=== PATIENT | male | born 1995 | race Caucasian/White ===

== ENCOUNTER → 2018-03-07 | Outpatient (CLI) | payer BC, OTHER ==
--- NOTE | 2018-03-07 08:07 | Diagnostic Imaging Report ---
PROCEDURE: CT sinuses without contrast TECHNIQUE: Multiple contiguous axial images were obtained through the sinuses without the use of intravenous contrast. Coronal and sagittal reformations were then performed. INDICATION: Chronic sinusitis and sinus polyp. Axial CT images of the paranasal sinuses are obtained with sagittal and coronal reformatted images produced. FINDINGS: There is near complete opacification of the left maxillary antrum with lobulated lesion appearing to protrude through the widened left ostiomeatal complex. There is also rightward deviation of the nasal septum. Leftward nasal septal spurring is present. Remainder of the paranasal sinuses are clear. There is no paranasal sinus air-fluid level. Mastoid air cells are also unremarkable. IMPRESSION: Probable mucous retention cyst or polyp occupying the majority of the left maxillary antrum with protrusion into the left nasal cavity through widened ostiomeatal complex. This also appears to exert mass effect upon the nasal septum. No acute sinusitis is appreciated. Dictated by: Dictated on workstation # [id number]
== END ==
LOC: RAD 07:34
PROVIDERS: ATTEND Otolaryngology Otolaryngology/Facial Plastic Surgery
DX: J32.9 Chronic sinusitis, unspecified (principal); J33.9 Nasal polyp, unspecified
CPT/HCPCS: 70486

== ENCOUNTER 2018-04-01 05:42 | Outpatient (CLI) | payer BC ==
[~2018-04-01] VITALS: Ht 195.6 cm; Wt 115.7 kg
== END 2018-04-01 14:13 | disposition home or self-care (01) ==
LOC: PREOP 05:42
PROVIDERS: ATTEND Otolaryngology Otolaryngology/Facial Plastic Surgery
DX: Z01.818 Encounter for other preprocedural examination (principal)

== ENCOUNTER 2018-04-04 06:21 | Day surgery (SDC) | payer BC ==
[~2018-04-04] VITALS: Ht 195.6 cm; Wt 115.7 kg
--- OUTSIDE RECORDS SUMMARY | 2018-04-04 06:24 | XMS REPORT ---
Author JOSÉ Patricia [facility] Address [address] [place], [place] [address] Care Team Providers Care Network Applications Specialist Name Role Phone JOSÉ LINDSAY PCP Unavailable Allergies and Adverse Reactions Name Reaction Notes NO KNOWN DRUG ALLERGIES Plan of Treatment Not available. 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 Acne scar Active 03/01/2014 Encounter for long-term (current) use of high-risk medication Active 2014 Vital Signs Date Time BP-Sys(mm[Hg] BP-Lynnette(mm[Hg]) HR(bpm) RR(rpm) Temp WT HT HC BMI BSA BMI Percentile O2 Sat(%) 03/01/2016 11:14:00 AM 150 mmHg 90 mmHg 85 bpm 18 rpm 98.1 F 252 lbs 77 in 29.88 kg/m2 2.49 m2 95.9 % 98 % Social History Name Description Comments Tobacco Never smoker History of Procedures Date Ordered Description Order Status 03/01/2016 12:00 AM THER/PROPH/DIAG INJ SC/IM Reviewed 03/01/2016 12:00 AM Decadron 8mg Injection Reviewed 03/01/2016 12:00 AM Depo-Medrol 80mg Injection Reviewed 03/01/2016 12:00 AM Rocephin 1 gram Injection Reviewed Results Summary Data and Description Results 02/09/2014 3:06 PM Reason No Show Appointment Date 02-09-14 04/07/2014 11:33 AM HDL 37.0 mg/dLSGOT/AST 16.0 IU/LSGPT/ALT 19.0 IU/LALK PHOS 84.0 IU/LCHOLESTEROL 144.0 mg/dLTRIGLYCERIDES 103.0 mg/dLWBC 9.2 RBC 5.38 HGB 15.80 g/dLHCT 46.50 %MCV 86.0 fLMCH 29.40 pgHC 34.0 g/dLRDW SD 41 RDW CV 12.90 %MPV 10.80 fLPLT 236 NRBC# 0.00 NRBC% 0.0 %NEUT 68.40 %%LYMP 25.70 %%MONO 5.30 %%EOS 0.40 %%BASO 0.20 %#NEUT 6.27 #LYMP 2.36 #MONO 0.49 #EOS 0.04 #BASO 0.02 MANUAL DIFF NOT IND History Of Immunizations Not available. History of Past Illness Name Date of Onset Comments Acne Cystic acne 03/01/2014 Acne scar 03/01/2014 Encounter for long-term (current) use of high-risk medication 03/01/2014 Cystic acne Mar 01 2014 3:41PM Acne scar Mar 01 2014 3:41PM Encounter for long-term (current) use of high-risk medication Mar 01 2014 3: 41PM Cystic acne Apr 07 2014 3:39PM Scar Apr 07 2014 3:39PM Encounter for long-term (current) use of high-risk medication Apr 07 2014 3: 39PM Acute pharyngitis, unspecified etiology Mar 01 2016 11:15AM Mild Acute Purulent postnasal drainage Mar 01 2016 11:15AM Moderate Acute Sinus pressure Mar 01 2016 11:15AM Payers Insurance Name Company Name Plan Name Plan Number Policy Number Policy Group Number Start Date [facility] [id number] Wednesday, 2010 History of Encounters Visit Date Visit Type Provider 03/01/2016 Office visit JOSÉ GREER 04/07/2014 Office visit Gemini Yoon MD 03/01/2014 Office visit Gemini Yoon MD 09/23/2013 Office visit Gemini Yoon MD
--- OUTSIDE RECORDS SUMMARY | 2018-04-04 06:24 | XMS REPORT ---
Author JOSÉ Patricia [facility] Address [address] [place], [place] [address] Care Team Providers Care Medical Transcriptionist Name Role Phone JOSÉ LINDSAY PCP Unavailable [...] 15.80 g/dLHCT 46.50 %MCV 86.0 fLMCH 29.40 pgMCHC 34.0 g/dLRDW SD 41 RDW CV 12.90 [...] Acute Sinus pressure Mar 01 2016 11:15AM Encounter for drug screening May 01 2016 3:03PM Payers Insurance Name Company Name Plan Name Plan Number Policy Number Policy Group Number [id number] Wednesday, [facility] PMRV PHYS/DS [id number] N/A History of Encounters Visit Date Visit Type Provider 05/01/2016 Office visit JOSÉ GREER 03/01/2016 Office visit JOSÉ GREER 04/07/2014 Office visit Gemini Yoon MD 03/01/2014 Office visit Gemini Yoon MD 09/23/2013 Office visit Gemini Yoon MD
--- OUTSIDE RECORDS SUMMARY | 2018-04-04 06:24 | XMS REPORT ---
Author Author BECKI JOYA Organization [facility] Address [address] [place] [address] Care Team Providers Care Paring Machine Operator Name Role Phone BECKI JOYA Unavailable PROBLEMS Unknown Problems ALLERGIES No Known Allergies ENCOUNTERS Encounter Location Date Diagnosis [facility] [address] [facility] [id number] [place] [address] Oct, Pneumonia of left lower lobe due to infectious organism J18.1 [facility] [id number] [place] [address] Dec Routine sports physical exam V70.3 ; Exercise counseling V65.41 and Dietary counseling V65.3 IMMUNIZATIONS Vaccine Route Administration Date Status SOLUMEDROL (UP TO 125 MG) IM Intramuscular Oct 31, 2016 Administered SOCIAL HISTORY Never Assessed REASON FOR VISIT cough, chest congestion for the past 2 months. [email or web address] PLAN OF CARE VITAL SIGNS Height 78 in 2016-10-31 Weight 258.0 lbs 2016-10-31 Temperature 98.3 degrees Fahrenheit 2016-10-31 Heart Rate 78 bpm 2016-10-31 Respiratory Rate 20 2016-10-31 BMI 29.81 kg/m2 2016-10-31 Blood pressure systolic 136 mmHg 2016-10-31 Blood pressure diastolic 86 mmHg 2016-10-31 MEDICATIONS Medication Instructions Dosage Frequency Start Date End Date Duration Status Zithromax Z-Martin 250 MG Orally Once a day 2 tablets on the first day, then 1 tablet daily for 4 days 24h Oct, Oct, 5 day(s) Active Cetirizine HCl 10 MG Orally Once a day 1 tablet 24h Active RESULTS No Results PROCEDURES Procedure Date Ordered Result Body Site SOLUMEDROL (UP TO 125 MG) Oct 31, 2016 THER/PROPH/DIAG INJ, SC/IM Oct 31, 2016 INSTRUCTIONS MEDICATIONS ADMINISTERED No Known Medications MEDICAL (GENERAL) HISTORY Type Description Date Surgical History right knee arthroscopy
--- OUTSIDE RECORDS SUMMARY | 2018-04-04 06:24 | XMS REPORT ---
Author Author KARUNA LEONARD Organization [employer] Address Unknown Phone Unavailable Care Team Providers Care [employer] Platemaker Name Role Phone KARUNA LEONARD CP Unavailable Allergies, Adverse Reactions, Alerts Substance Reaction Event Type N.K.D.A. Info Not Available Non Drug Allergy Problems Problem Type Condition Code Onset Dates Condition Status Assessment Exercise counseling V65.41 Active Assessment Dietary counseling V65.3 Active Assessment Routine sports physical exam V70.3 Active Medications No Known Medications Procedures Procedure Coding System Code Date VISUAL ACUITY SCREEN CPT-4 17970 Jan 10, 2015 Preventive Care Est Pt. Age 12-17 CPT-4 20323 Jan 10, 2015 Vital Signs Date/Time: Jan 10, 2015 Temperature 99.2 F BMIPercentile 97.53 % Weight 249.3 lbs Height 75.5 in BMI 30.75 Index Blood Pressure Diastolic 78 mmHg Blood Pressure Systolic 132 mmHg Cardiac Monitoring Heart Rate 94 bpm Wt Percentile 99.48 % Ht Percentile 98.94 % Results No Known Results Summary Purpose [employer] Submission
--- OUTSIDE RECORDS SUMMARY | 2018-04-04 06:25 | XMS REPORT | Clinical Summary ---
Author Author Admin, OBDULIO Organization [facility] Address Unknown Phone Unavailable Allergies, Adverse Reactions, Alerts Allergy Name Reaction Description Start Date Severity Status Provider No Known Allergies MANUELA [place] Conditions or Problems Problem Name Problem Code Onset Date Status Entry Date Provider Comment Standard Description Annotate ANKLE PAIN, RIGHT 719.47 Resolved Steffany Lynch MD PhD Pain in joint involving ankle and foot FAMILY HISTORY OF HYPERTENSION V17.4 Active Susan Mckinnon MD Family history of other cardiovascular diseases Sinusitis-Acute 461.9 Inactive Susan Mckinnon MD Acute sinusitis, unspecified Abdominal pain, right upper quadrant 789.01 Resolved Steffany Lynch MD PhD Abdominal pain, right upper quadrant Knee pain, right 719.46 Resolved Steffany Lynch MD PhD Pain in joint involving lower leg SINUSITIS, ACUTE 461.9 Inactive Julián Sue MD Acute sinusitis, unspecified Nasal congestion 478.19 Resolved Steffany Lynch MD PhD Other disease of nasal cavity and sinuses Pharyngitis-Acute 462 Resolved Steffany Lynch MD PhD Acute pharyngitis Concussion with no loss of consciousness 850.0 Active Steffany Lynch MD PhD Concussion with no loss of consciousness Sinusitis, maxillary, acute 461.0 Active Carter Blanco DO Acute maxillary sinusitis Bronchitis 490 Active Wilberto Escobar APRN Bronchitis, not specified as acute or chronic Pharyngitis 462 Active Wilberto Escobar APRN Acute pharyngitis ANKLE PAIN, RIGHT ICD-719.47 Inactive Steffany Lynch MD PhD Sinusitis-Acute ICD-461.9 Inactive Susan Mckinnon MD Abdominal pain, right upper quadrant ICD-789.01 Inactive Steffany Lynch MD PhD Knee pain, right ICD-719.46 Inactive Steffany Lynch MD PhD SINUSITIS, ACUTE ICD-461.9 Inactive Julián Sue MD Nasal congestion ICD-478.19 Inactive Steffany Lnych MD PhD Pharyngitis-Acute ICD-462 Inactive Steffany Lynch MD PhD Medication List Medication Instructions Start Date Stop Date Generic Name NDC Status Provider Patient Instruction FLUTICASONE PROPIONATE 50 MCG/ACT SUSP 1 to 2 sprays each nostril daily 03/21 FLUTICASONE PROPIONATE 86518768161 Active Richllina Shawn CARRENON Active AUGMENTIN 875-125 MG TAB 1 po BID x 10 days AMOXICILLIN-POT CLAVULANATE 19701399698 No Longer Active Richllina Lizetl SEO EXECUTIVE Active CLARITIN 10 MG TAB 1 tablet by mouth daily as needed for allergies LORATADINE 23189993960 Active Jillina Frazell SEO EXECUTIVE Active PREDNISONE 20 MG TAB 2 tabs daily for 3 days, 1 tab daily for 3 days, 1/2 tab daily for 2 days PREDNISONE 07576384893 No Longer Active Jillina Frazell SEO EXECUTIVE Active AZITHROMYCIN 250 MG TABS 2 po qd x 1 day, then 1 po qd x 4 days AZITHROMYCIN 74521885257 No Longer Active Jillina Frabeatrizl SEO EXECUTIVE Active FLONASE 50 MCG/ACT SUSP 1 spray each nostril twice daily for allergies and runny nose FLUTICASONE PROPIONATE 84760804731 No Longer Active Jillina Frazell SEO EXECUTIVE Active CEFTIN 500 MG TAB 1 twice a day CEFUROXIME AXETIL 02335402874 No Longer Active Jillina Frazell SEO EXECUTIVE Active PREDNISONE 20 MG TAB 2 tablets today, then 1 tablet days 2 and 3 PREDNISONE 48326708400 No Longer Active Jillina Frazell SEO EXECUTIVE Active TYLENOL WITH CODEINE #3 300-30 MG TABS 1 pill by mouth up to every 6 hours if needed for pain ACETAMINOPHEN-CODEINE 11298096884 No Longer Active Carter Blanco DO Active FLONASE 50 MCG/ACT SUSP 1 spray each nostril am and hs FLUTICASONE PROPIONATE 40708344492 No Longer Active Carter Blanco DO Active PREDNISONE 20 MG TAB 2 tablets today, then 1 tablet days 2 and 3 PREDNISONE 58936931480 No Longer Active Steffany Lynch MD PhD Active ZITHROMAX 250 MG TAB 2 po today, then 1 po q days 2-5 AZITHROMYCIN 25219470727 No Longer Active Julián Sue MD Active FLONASE 50 MCG/ACT SUSP 1 puff in each nostril twice daily 12/30 FLUTICASONE PROPIONATE 33946128250 No Longer Active Elle Giang APRN Active AMOXICILLIN 875 MG TABS 1 bid AMOXICILLIN 85348170863 No Longer Active Elle Giang APRN Active AMOXICILLIN 875 MG TABS 1 bid AMOXICILLIN 875 MG TABS 249971 AMOXICILLIN Inactive FLONASE 50 MCG/ACT SUSP 1 puff in each nostril twice daily 12/30 FLONASE 50 MCG/ACT SUSP FLUTICASONE PROPIONATE Inactive PREDNISONE 20 MG TAB 2 tablets today, then 1 tablet days 2 and 3 PREDNISONE 20 MG TAB 975514 PREDNISONE Inactive FLONASE 50 MCG/ACT SUSP 1 spray each nostril am and hs FLONASE 50 MCG/ACT SUSP FLUTICASONE PROPIONATE Inactive TYLENOL WITH CODEINE #3 300-30 MG TABS 1 pill by mouth up to every 6 hours if needed for pain TYLENOL WITH CODEINE #3 300-30 MG TABS 267321 ACETAMINOPHEN-CODEINE Inactive PREDNISONE 20 MG TAB 2 tablets today, then 1 tablet days 2 and 3 PREDNISONE 20 MG TAB 817014 PREDNISONE Inactive CEFTIN 500 MG TAB 1 twice a day CEFTIN 500 MG TAB 390678 CEFUROXIME AXETIL Inactive FLONASE 50 MCG/ACT SUSP 1 spray each nostril twice daily for allergies and runny nose FLONASE 50 MCG/ACT SUSP FLUTICASONE PROPIONATE Inactive ZITHROMAX 250 MG TAB 2 po today, then 1 po q days 2-5 ZITHROMAX 250 MG TAB 1238065 AZITHROMYCIN Inactive AZITHROMYCIN 250 MG TABS 2 po qd x 1 day, then 1 po qd x 4 days AZITHROMYCIN 250 MG TABS 5938632 AZITHROMYCIN Inactive PREDNISONE 20 MG TAB 2 tabs daily for 3 days, 1 tab daily for 3 days, 1/2 tab daily for 2 days PREDNISONE 20 MG TAB 361250 PREDNISONE Inactive AUGMENTIN 875-125 MG TAB 1 po BID x 10 days AUGMENTIN 875-125 MG TAB 652391 AMOXICILLIN-POT CLAVULANATE Inactive Immunizations Vaccine Administration Date Value Standard Description Adacel (Tetanus, reduced Diphtheria, and acellular Pertussis Immunization) Adacel [[id number]] tetanus toxoid, reduced diphtheria toxoid, and acellular pertussis vaccine, adsorbed chicken pox immunization #1 Historical varicella virus vaccine hepatitis A immunization #1 Historical hepatitis A vaccine, unspecified formulation DPT immunization #5 Historical oral polio vaccine (OPV) #4 Historical poliovirus vaccine, unspecified formulation MMR (measles, mumps, rubella) virus immunization #2 Historical DPT immunization #4 Historical Hemophilus influenza B immunization #4 Historical Haemophilus influenzae type b vaccine, conjugate unspecified formulation oral polio vaccine (OPV) #3 Historical poliovirus vaccine, unspecified formulation MMR (measles, mumps, rubella) virus immunization #1 Historical Hemophilus influenza B immunization #3 Historical Haemophilus influenzae type b vaccine, conjugate unspecified formulation DPT immunization #3 Historical hepatitis B vaccine #3 Historical hepatitis B vaccine, unspecified formulation Hemophilus influenza B immunization #2 Historical Haemophilus influenzae type b vaccine, conjugate unspecified formulation oral polio vaccine (OPV) #2 Historical poliovirus vaccine, unspecified formulation DPT immunization #2 Historical Hemophilus influenza B immunization #1 Historical Haemophilus influenzae type b vaccine, conjugate unspecified formulation oral polio vaccine (OPV) #1 Historical poliovirus vaccine, unspecified formulation DPT immunization #1 Historical hepatitis B vaccine #2 given Historical hepatitis B vaccine, unspecified formulation hepatitis B vaccine #1 given Historical hepatitis B vaccine, unspecified formulation Vital Signs Date Name Value Unit Range Description blood pressure, diastolic - 8462-4 90 mm[Hg] BP mata blood pressure, systolic - 8480-6 155 mm[Hg] BP sys pulse rate E&M - 8867-4 86 /min Heart rate temperature E&M 97.6 [degF] Body temperature weight E&M - 3141-9 245.5 [lb_av] Weight Measured blood pressure, diastolic - 8462-4 93 mm[Hg] BP mata blood pressure, systolic - 8480-6 148 mm[Hg] BP sys pulse rate E&M - 8867-4 85 /min Heart rate temperature E&M 98.2 [degF] Body temperature weight E&M - 3141-9 246.5 [lb_av] Weight Measured blood pressure, diastolic - 8462-4 78 mm[Hg] BP mata blood pressure, systolic - 8480-6 154 mm[Hg] BP sys pulse rate E&M - 8867-4 78 /min Heart rate temperature E&M 98.2 [degF] Body temperature weight E&M - 3141-9 254.2 [lb_av] Weight Measured blood pressure, diastolic - 8462-4 70 mm[Hg] BP mata blood pressure, systolic - 8480-6 125 mm[Hg] BP sys pulse rate E&M - 8867-4 76 /min Heart rate temperature E&M 98.6 [degF] Body temperature weight E&M - 3141-9 238.4 [lb_av] Weight Measured blood pressure, diastolic - 8462-4 81 mm[Hg] BP mata blood pressure, systolic - 8480-6 142 mm[Hg] BP sys pulse rate E&M - 8867-4 78 /min Heart rate temperature E&M 97.8 [degF] Body temperature weight E&M - 3141-9 235 [lb_av] Weight Measured blood pressure, diastolic - 8462-4 80 mm[Hg] BP mata blood pressure, systolic - 8480-6 141 mm[Hg] BP sys pulse rate E&M - 8867-4 74 /min Heart rate temperature E&M 98.1 [degF] Body temperature weight E&M - 3141-9 232.2 [lb_av] Weight Measured blood pressure, diastolic - 8462-4 73 mm[Hg] BP mata blood pressure, systolic - 8480-6 140 mm[Hg] BP sys pulse rate E&M - 8867-4 73 /min Heart rate temperature E&M 97.8 [degF] Body temperature weight E&M - 3141-9 235.3 [lb_av] Weight Measured Diagnostic Results Date Name Value Unit Range Description Lab Report: MonoSpot, CBC W/DIFF - Hematology leukocyte count, blood 9.2 10^3/MM^3 10*3/mm3 4.6-10.2 neutrophils as percent of blood leukocytes 68.0 % 42.2-75.2 monocytes as percent of blood leukocytes 8.0 % 1.7-9.3 lymphocytes as percent of blood leukocytes 18.2 % 20.5-51.1 erythrocyte (RBC) count 5.37 10^6/MM^3 10*6/mm3 4.69-6.13 hemoglobin, blood 16.3 g/dL 12.0-16.0 hematocrit, blood 47.7 % 41.0-53.0 mean corpuscular volume, RBC 89 fL 80-97 mean corpuscular hemoglobin, RBC 30.4 pg 27.0-31.2 mean corpuscular hemoglobin concentration, RBC 34.2 G/DL % 31.8- 35.4 red blood cell distribution width 13.8 % 11.6-14.8 platelet count 207 10^3/MM^3 10*3/mm3 142-424 Lab Report: Rapid Strep - Lab Microbial identification kit, rapid strep method Negative Negative Encounters Code Encounter Date Provider Facility CPT-91643 Level 3 Est. Patient 13:56:53 METALLURGICAL ENGINEERING TEACHER Wilberto Escobar [facility] CPT-90989 Level 3 Est. Patient 09:50:19 METALLURGICAL ENGINEERING TEACHER Wilberto Escobar [facility] CPT-83514 Level 3 Est. Patient 18:01:13 CDT Carter Blanco DO [facility] CPT-86920 Level 2 Est. Patient 15:48:46 CDT Steffany Lynch MD [facility] CPT-73447 Level 2 Est. Patient 13:26:32 CDT Steffany Lynch MD [facility] CPT-01604 Level 3 Est. Patient 10:13:02 CDT Steffany Lynch MD [facility] CPT-84839 Level 2 New Patient 14:45:33 CDT Steffany Lynch MD [facility] CPT-06232 Level 3 Est. Patient 16:57:05 METALLURGICAL ENGINEERING TEACHER Carter Blanco [facility] CPT-24377 Level 3 Est. Patient 09:58:27 CDT Julián Sue MD [facility] CPT-17596 Level 3 Est. Patient 10:17:17 METALLURGICAL ENGINEERING TEACHER Carter Blanco [facility] CPT-96690 Level 3 Est. Patient 10:42:29 METALLURGICAL ENGINEERING TEACHER Elle Giang APRN [facility] CPT-67957 Level 3 Est. Patient 10:00:26 CDT Susan Mckinnon MD [facility] CPT-35847 Level 3 Est. Patient 15:14:48 CDT Susan Mckinnon MD [facility] Procedures Code Procedure Name Date Entry Date Standard Description CPT-A4570 Splint 15:14:48 CDT CPT-59169 Ankle Complete - Min 3V 14:40:31 CDT
--- OUTSIDE RECORDS SUMMARY | 2018-04-04 06:25 | XMS REPORT | Clinical Summary ---
Author Author Admin, OBDULIO Organization [facility] Address Unknown Phone Unavailable Allergies, Adverse Reactions, Alerts Allergy Name Reaction Description Start Date Severity Status Provider No Known Allergies Grisel Blanc RN Conditions or Problems Problem Name Problem Code [...] as acute or chronic Pharyngitis 462 Active Jijose manuel Escobar APRN Acute pharyngitis ANKLE PAIN, RIGHT ICD-719.47 Inactive Steffany Lynch MD PhD Sinusitis-Acute ICD-461.9 Inactive Susan Mckinnon MD Abdominal pain, right upper quadrant ICD-789.01 Inactive Steffany Lynch MD PhD Knee pain, right ICD-719.46 Inactive Steffany Lynch MD PhD SINUSITIS, ACUTE ICD-461.9 Inactive Julián Sue MD Nasal congestion ICD-478.19 Inactive Steffany Lynch MD PhD Pharyngitis-Acute ICD-462 Inactive Steffany Lynch MD PhD Medication List Medication Instructions Start Date Stop Date Generic Name NDC Status Provider Patient Instruction FLUTICASONE PROPIONATE 50 MCG/ACT SUSP 1 to 2 sprays each nostril daily 03/21 FLUTICASONE PROPIONATE 16356233857 Active Richllina Shawn CARRENON Active AUGMENTIN 875-125 MG TAB 1 po BID x 10 days AMOXICILLIN-POT CLAVULANATE 54001162531 Active Jillina Lizetl LEGAL BILLING ANALYST Active CLARITIN 10 MG TAB 1 tablet by mouth daily as needed for allergies LORATADINE 70760476995 Active Jillina Onelzell LEGAL BILLING ANALYST Active PREDNISONE 20 MG TAB 2 tabs daily for 3 days, 1 tab daily for 3 days, 1/2 tab daily for 2 days PREDNISONE 19492411292 No Longer Active Jillina Frazell LEGAL BILLING ANALYST Active AZITHROMYCIN 250 MG TABS 2 po qd x 1 day, then 1 po qd x 4 days AZITHROMYCIN 48534786704 No Longer Active Jillina Frazell LEGAL BILLING ANALYST Active FLONASE 50 MCG/ACT SUSP 1 spray each nostril twice daily for allergies and runny nose FLUTICASONE PROPIONATE 49464346236 No Longer Active Jillina Frazell LEGAL BILLING ANALYST Active CEFTIN 500 MG TAB 1 twice a day CEFUROXIME AXETIL 12662014563 No Longer Active Jillina Frazell LEGAL BILLING ANALYST Active PREDNISONE 20 MG TAB 2 tablets today, then 1 tablet days 2 and 3 PREDNISONE 69449556600 No Longer Active Jillina Frazell LEGAL BILLING ANALYST Active TYLENOL WITH CODEINE #3 300-30 MG TABS 1 pill by mouth up to every 6 hours if needed for pain ACETAMINOPHEN-CODEINE 94023817749 No Longer Active Carter Blanco DO Active FLONASE 50 MCG/ACT SUSP 1 spray each nostril am and hs FLUTICASONE PROPIONATE 55347566820 No Longer Active Carter Blanco DO Active PREDNISONE 20 MG TAB 2 tablets today, then 1 tablet days 2 and 3 PREDNISONE 31977684170 No Longer Active Steffany Lynch MD PhD Active ZITHROMAX 250 MG TAB 2 po today, then 1 po q days 2-5 AZITHROMYCIN 54038494110 No Longer Active Julián Sue MD Active FLONASE 50 MCG/ACT SUSP 1 puff in each nostril twice daily 12/30 FLUTICASONE PROPIONATE 32197415719 No Longer Active Elle Giang APRN Active AMOXICILLIN 875 MG TABS 1 bid AMOXICILLIN 37926051501 No Longer Active Elle Giang APRN Active AMOXICILLIN 875 MG TABS 1 bid AMOXICILLIN 875 MG TABS 200732 AMOXICILLIN Inactive FLONASE 50 MCG/ACT SUSP 1 puff in each nostril twice daily 12/30 FLONASE 50 MCG/ACT SUSP FLUTICASONE PROPIONATE Inactive PREDNISONE 20 MG TAB 2 tablets today, then 1 tablet days 2 and 3 PREDNISONE 20 MG TAB 023218 PREDNISONE Inactive FLONASE 50 MCG/ACT SUSP 1 spray each nostril am and hs FLONASE 50 MCG/ACT SUSP FLUTICASONE PROPIONATE Inactive TYLENOL WITH CODEINE #3 300-30 MG TABS 1 pill by mouth up to every 6 hours if needed for pain TYLENOL WITH CODEINE #3 300-30 MG TABS 211031 ACETAMINOPHEN-CODEINE Inactive PREDNISONE 20 MG TAB 2 tablets today, then 1 tablet days 2 and 3 PREDNISONE 20 MG TAB 441026 PREDNISONE Inactive CEFTIN 500 MG TAB 1 twice a day CEFTIN 500 MG TAB 537472 CEFUROXIME AXETIL Inactive FLONASE 50 MCG/ACT SUSP 1 spray each nostril twice daily for allergies and runny nose FLONASE 50 MCG/ACT SUSP FLUTICASONE PROPIONATE Inactive ZITHROMAX 250 MG TAB 2 po today, then 1 po q days 2-5 ZITHROMAX 250 MG TAB 7469899 AZITHROMYCIN Inactive AZITHROMYCIN 250 MG TABS 2 po qd x 1 day, then 1 po qd x 4 days AZITHROMYCIN 250 MG TABS 3793820 AZITHROMYCIN Inactive PREDNISONE 20 MG TAB 2 tabs daily for 3 days, 1 tab daily for 3 days, 1/2 tab daily for 2 days PREDNISONE 20 MG TAB 003042 PREDNISONE Inactive Immunizations Vaccine Administration Date Value Standard Description Adacel (Tetanus, reduced Diphtheria, and acellular Pertussis Immunization) Adacel [[id number]] tetanus toxoid, reduced diphtheria toxoid, and acellular [...] (measles, mumps, rubella) virus immunization #1 Historical hepatitis B vaccine #3 Historical hepatitis B vaccine, unspecified formulation DPT immunization #3 Historical Hemophilus influenza B immunization #3 Historical Haemophilus influenzae type b vaccine, conjugate unspecified formulation DPT immunization #2 Historical Hemophilus influenza B immunization #2 Historical Haemophilus influenzae type b vaccine, conjugate unspecified formulation oral polio vaccine (OPV) #2 Historical poliovirus vaccine, unspecified formulation hepatitis B vaccine #2 given Historical hepatitis B vaccine, unspecified formulation DPT immunization #1 Historical Hemophilus influenza B immunization #1 Historical Haemophilus influenzae type b vaccine, conjugate unspecified formulation oral polio vaccine (OPV) #1 Historical poliovirus vaccine, unspecified formulation hepatitis B vaccine #1 given Historical hepatitis B vaccine, unspecified formulation Vital Signs Date Name Value Unit Range Description blood pressure, diastolic - 8462-4 93 mm[Hg] [...] Negative Encounters Code Encounter Date Provider Facility [facility]-[id number] Level 3 Est. Patient 13:56:53 CONVERTING OPERATOR Wilberto Escobar [facility]-50164 Level 3 Est. Patient 09:50:19 CONVERTING OPERATOR Wilberto Escobar [facility]08609 Level 3 Est. Patient 18:01:13 CDT Carter Blanco [facility][note 2]-84802 Level 2 Est. Patient 15:48:46 CDT Steffany Lynch MD [facility]-58192 Level 2 Est. Patient 13:26:32 CDT Steffany Lynch MD [facility] CPT-20795 Level 3 Est. Patient 10:13:02 CDT Steffany Lynch MD PhD [facility]-44734 Level 2 New Patient 14:45:33 CDT Steffany Lynch MD [facility] CPT-74253 Level 3 Est. Patient 16:57:05 CONVERTING OPERATOR Carter Blanco [facility] [place][note 2]-56683 Level 3 Est. Patient 09:58:27 CDT Julián Sue MD [facility] CPT-27270 Level 3 Est. Patient 10:17:17 CONVERTING OPERATOR Carter Blanco DO [facility] CPT-67769 Level 3 Est. Patient 10:42:29 CONVERTING OPERATOR Elle Giang APRN [facility] CPT-89883 Level 3 Est. Patient 10:00:26 CDT Susan Mckinnon MD [facility] CPT-30314 Level 3 Est. Patient 15:14:48 CDT Susan Mckinnon MD [facility] Procedures Code Procedure Name Date Entry Date Standard Description CPT-A4570 Splint 15:14:48 CDT CPT-08488 Ankle Complete - Min 3V 14:40:31 CDT
--- OUTSIDE RECORDS SUMMARY | 2018-04-04 06:25 | XMS REPORT | Clinical Summary ---
Author Author Admin, OBDULIO Organization [facility] Address Unknown Phone Unavailable Allergies, Adverse Reactions, [...] sprays each nostril daily 03/21 FLUTICASONE PROPIONATE 83016005589 Active Richllina Shawn CARRENON Active AUGMENTIN 875-125 MG TAB 1 po BID x 10 days AMOXICILLIN-POT CLAVULANATE 29930682626 No Longer Active Richllina Lizetl DIRECTOR OF EVENT SALES Active CLARITIN 10 MG TAB 1 tablet by mouth daily as needed for allergies LORATADINE 48551543973 Active Jillina Frazell DIRECTOR OF EVENT SALES Active PREDNISONE 20 MG TAB 2 tabs daily for 3 days, 1 tab daily for 3 days, 1/2 tab daily for 2 days PREDNISONE 49832185635 No Longer Active Jillina Frazell DIRECTOR OF EVENT SALES Active AZITHROMYCIN 250 MG TABS 2 po qd x 1 day, then 1 po qd x 4 days AZITHROMYCIN 11224190643 No Longer Active Jillina Frabeatrizl DIRECTOR OF EVENT SALES Active FLONASE 50 MCG/ACT SUSP 1 spray each nostril twice daily for allergies and runny nose FLUTICASONE PROPIONATE 71234315699 No Longer Active Jillina Frazell DIRECTOR OF EVENT SALES Active CEFTIN 500 MG TAB 1 twice a day CEFUROXIME AXETIL 48724067006 No Longer Active Jillina Frazell DIRECTOR OF EVENT SALES Active PREDNISONE 20 MG TAB 2 tablets today, then 1 tablet days 2 and 3 PREDNISONE 14835526051 No Longer Active Jillina Frazell DIRECTOR OF EVENT SALES Active TYLENOL WITH CODEINE #3 300-30 MG TABS 1 pill by mouth up to every 6 hours if needed for pain ACETAMINOPHEN-CODEINE 47584106549 No Longer Active Carter Blanco DO Active FLONASE 50 MCG/ACT SUSP 1 spray each nostril am and hs FLUTICASONE PROPIONATE 55736269795 No Longer Active Carter Blanco DO Active PREDNISONE 20 MG TAB 2 tablets today, then 1 tablet days 2 and 3 PREDNISONE 87878998093 No Longer Active Steffany Lynch MD PhD Active ZITHROMAX 250 MG TAB 2 po today, then 1 po q days 2-5 AZITHROMYCIN 79358778489 No Longer Active Julián Sue MD Active FLONASE 50 MCG/ACT SUSP 1 puff in each nostril twice daily 12/30 FLUTICASONE PROPIONATE 51557886760 No Longer Active Elle Giang APRN Active AMOXICILLIN 875 MG TABS 1 bid AMOXICILLIN 92677764404 No Longer Active Elle Giang APRN Active AMOXICILLIN 875 MG TABS 1 bid AMOXICILLIN 875 MG TABS 771985 AMOXICILLIN Inactive FLONASE 50 MCG/ACT SUSP 1 puff in each nostril twice daily 12/30 FLONASE 50 MCG/ACT SUSP FLUTICASONE PROPIONATE Inactive PREDNISONE 20 MG TAB 2 tablets today, then 1 tablet days 2 and 3 PREDNISONE 20 MG TAB 390451 PREDNISONE Inactive FLONASE 50 MCG/ACT SUSP 1 spray each nostril am and hs FLONASE 50 MCG/ACT SUSP FLUTICASONE PROPIONATE Inactive TYLENOL WITH CODEINE #3 300-30 MG TABS 1 pill by mouth up to every 6 hours if needed for pain TYLENOL WITH CODEINE #3 300-30 MG TABS 937750 ACETAMINOPHEN-CODEINE Inactive PREDNISONE 20 MG TAB 2 tablets today, then 1 tablet days 2 and 3 PREDNISONE 20 MG TAB 640102 PREDNISONE Inactive CEFTIN 500 MG TAB 1 twice a day CEFTIN 500 MG TAB 778324 CEFUROXIME AXETIL Inactive FLONASE 50 MCG/ACT SUSP 1 spray each nostril twice daily for allergies and runny nose FLONASE 50 MCG/ACT SUSP FLUTICASONE PROPIONATE Inactive ZITHROMAX 250 MG TAB 2 po today, then 1 po q days 2-5 ZITHROMAX 250 MG TAB 8252301 AZITHROMYCIN Inactive AZITHROMYCIN 250 MG TABS 2 po qd x 1 day, then 1 po qd x 4 days AZITHROMYCIN 250 MG TABS 8482214 AZITHROMYCIN Inactive PREDNISONE 20 MG TAB 2 tabs daily for 3 days, 1 tab daily for 3 days, 1/2 tab daily for 2 days PREDNISONE 20 MG TAB 163630 PREDNISONE Inactive AUGMENTIN 875-125 MG TAB 1 po BID x 10 days AUGMENTIN 875-125 MG TAB 949206 AMOXICILLIN-POT CLAVULANATE Inactive Immunizations Vaccine Administration Date Value Standard Description Adacel (Tetanus, reduced Diphtheria, and acellular Pertussis Immunization) Adacel [[id number]] tetanus toxoid, reduced diphtheria toxoid, and acellular [...] Negative Encounters Code Encounter Date Provider Facility CPT-56065 Level 3 Est. Patient 13:56:53 MECHANICAL ENGINEERING LECTURER Wilberto Escobar [facility] CPT-39549 Level 3 Est. Patient 09:50:19 MECHANICAL ENGINEERING LECTURER Wilberto Escobar [facility] CPT-65685 Level 3 Est. Patient 18:01:13 CDT Carter Blanco DO [facility] CPT-13243 Level 2 Est. Patient 15:48:46 CDT Steffany Lynch MD [facility] CPT-23115 Level 2 Est. Patient 13:26:32 CDT Steffany Lynch MD [facility] CPT-69220 Level 3 Est. Patient 10:13:02 CDT Steffany Lynch MD [facility] CPT-54543 Level 2 New Patient 14:45:33 CDT Steffany Lynch MD [facility] CPT-54364 Level 3 Est. Patient 16:57:05 MECHANICAL ENGINEERING LECTURER Carter Blanco [facility] CPT-03062 Level 3 Est. Patient 09:58:27 CDT Julián Sue MD [facility] CPT-68053 Level 3 Est. Patient 10:17:17 MECHANICAL ENGINEERING LECTURER Carter Blanco [facility] CPT-73814 Level 3 Est. Patient 10:42:29 MECHANICAL ENGINEERING LECTURER Elle Giang APRN [facility] CPT-04453 Level 3 Est. Patient 10:00:26 CDT Susan Mckinnon MD [facility] CPT-84785 Level 3 Est. Patient 15:14:48 CDT Susan Mckinnon MD [facility] Procedures Code Procedure Name Date Entry Date Standard Description CPT-A4570 Splint 15:14:48 CDT CPT-66438 Ankle Complete - Min 3V 14:40:31 CDT
--- OUTSIDE RECORDS SUMMARY | 2018-04-04 06:26 | XMS REPORT | Clinical Summary ---
Author Author Admin, OBDULIO Organization [facility] Address Unknown Phone Unavailable Allergies, Adverse [...] sprays each nostril daily 03/21 FLUTICASONE PROPIONATE 63103243429 Active Richllina Shawn CARRENON Active AUGMENTIN 875-125 MG TAB 1 po BID x 10 days AMOXICILLIN-POT CLAVULANATE 76701215680 No Longer Active Richllina Lizetl BUSINESS OBJECTS ARCHITECT Active CLARITIN 10 MG TAB 1 tablet by mouth daily as needed for allergies LORATADINE 53627915027 Active Jillina Frazell BUSINESS OBJECTS ARCHITECT Active PREDNISONE 20 MG TAB 2 tabs daily for 3 days, 1 tab daily for 3 days, 1/2 tab daily for 2 days PREDNISONE 07397606995 No Longer Active Jillina Frazell BUSINESS OBJECTS ARCHITECT Active AZITHROMYCIN 250 MG TABS 2 po qd x 1 day, then 1 po qd x 4 days AZITHROMYCIN 50945331941 No Longer Active Jillina Frabeatrizl BUSINESS OBJECTS ARCHITECT Active FLONASE 50 MCG/ACT SUSP 1 spray each nostril twice daily for allergies and runny nose FLUTICASONE PROPIONATE 93581800609 No Longer Active Jillina Frazell BUSINESS OBJECTS ARCHITECT Active CEFTIN 500 MG TAB 1 twice a day CEFUROXIME AXETIL 23281270146 No Longer Active Jillina Frazell BUSINESS OBJECTS ARCHITECT Active PREDNISONE 20 MG TAB 2 tablets today, then 1 tablet days 2 and 3 PREDNISONE 48741723884 No Longer Active Jillina Frazell BUSINESS OBJECTS ARCHITECT Active TYLENOL WITH CODEINE #3 300-30 MG TABS 1 pill by mouth up to every 6 hours if needed for pain ACETAMINOPHEN-CODEINE 79580210601 No Longer Active Carter Blanco DO Active FLONASE 50 MCG/ACT SUSP 1 spray each nostril am and hs FLUTICASONE PROPIONATE 90785626596 No Longer Active Carter Blanco DO Active PREDNISONE 20 MG TAB 2 tablets today, then 1 tablet days 2 and 3 PREDNISONE 14339506771 No Longer Active Steffany Lynch MD PhD Active ZITHROMAX 250 MG TAB 2 po today, then 1 po q days 2-5 AZITHROMYCIN 51553084419 No Longer Active Julián Sue MD Active FLONASE 50 MCG/ACT SUSP 1 puff in each nostril twice daily 12/30 FLUTICASONE PROPIONATE 75218291745 No Longer Active Elle Giang APRN Active AMOXICILLIN 875 MG TABS 1 bid AMOXICILLIN 93561786054 No Longer Active Elle Giang APRN Active AMOXICILLIN 875 MG TABS 1 bid AMOXICILLIN 875 MG TABS 699719 AMOXICILLIN Inactive FLONASE 50 MCG/ACT SUSP 1 puff in each nostril twice daily 12/30 FLONASE 50 MCG/ACT SUSP FLUTICASONE PROPIONATE Inactive PREDNISONE 20 MG TAB 2 tablets today, then 1 tablet days 2 and 3 PREDNISONE 20 MG TAB 577941 PREDNISONE Inactive FLONASE 50 MCG/ACT SUSP 1 spray each nostril am and hs FLONASE 50 MCG/ACT SUSP FLUTICASONE PROPIONATE Inactive TYLENOL WITH CODEINE #3 300-30 MG TABS 1 pill by mouth up to every 6 hours if needed for pain TYLENOL WITH CODEINE #3 300-30 MG TABS 003551 ACETAMINOPHEN-CODEINE Inactive PREDNISONE 20 MG TAB 2 tablets today, then 1 tablet days 2 and 3 PREDNISONE 20 MG TAB 167965 PREDNISONE Inactive CEFTIN 500 MG TAB 1 twice a day CEFTIN 500 MG TAB 848089 CEFUROXIME AXETIL Inactive FLONASE 50 MCG/ACT SUSP 1 spray each nostril twice daily for allergies and runny nose FLONASE 50 MCG/ACT SUSP FLUTICASONE PROPIONATE Inactive ZITHROMAX 250 MG TAB 2 po today, then 1 po q days 2-5 ZITHROMAX 250 MG TAB 6564996 AZITHROMYCIN Inactive AZITHROMYCIN 250 MG TABS 2 po qd x 1 day, then 1 po qd x 4 days AZITHROMYCIN 250 MG TABS 7652188 AZITHROMYCIN Inactive PREDNISONE 20 MG TAB 2 tabs daily for 3 days, 1 tab daily for 3 days, 1/2 tab daily for 2 days PREDNISONE 20 MG TAB 050571 PREDNISONE Inactive AUGMENTIN 875-125 MG TAB 1 po BID x 10 days AUGMENTIN 875-125 MG TAB 607666 AMOXICILLIN-POT CLAVULANATE Inactive Immunizations Vaccine Administration Date Value Standard Description Adacel (Tetanus, reduced Diphtheria, and acellular Pertussis Immunization) Adacel [[id number]] tetanus toxoid, reduced diphtheria toxoid, and acellular [...] Negative Encounters Code Encounter Date Provider Facility CPT-41856 Level 3 Est. Patient 13:56:53 SOLAR ENERGY SYSTEM INSTALLER Wilberto Escobar [facility] CPT-90914 Level 3 Est. Patient 09:50:19 SOLAR ENERGY SYSTEM INSTALLER Wilberto Escobar [facility] CPT-89175 Level 3 Est. Patient 18:01:13 CDT Carter Blanco DO [facility] CPT-68638 Level 2 Est. Patient 15:48:46 CDT Steffany Lynch MD [facility] CPT-30905 Level 2 Est. Patient 13:26:32 CDT Steffany Lynch MD [facility] CPT-21744 Level 3 Est. Patient 10:13:02 CDT Steffany Lynch MD [facility] CPT-62352 Level 2 New Patient 14:45:33 CDT Steffany Lynch MD [facility] CPT-01928 Level 3 Est. Patient 16:57:05 SOLAR ENERGY SYSTEM INSTALLER Carter Blanco [facility] CPT-62997 Level 3 Est. Patient 09:58:27 CDT Julián Sue MD [facility] CPT-28245 Level 3 Est. Patient 10:17:17 SOLAR ENERGY SYSTEM INSTALLER Carter Blanco [facility] CPT-61782 Level 3 Est. Patient 10:42:29 SOLAR ENERGY SYSTEM INSTALLER Elle Giang APRN [facility] CPT-86800 Level 3 Est. Patient 10:00:26 CDT Susan Mckinnon MD [facility] CPT-46410 Level 3 Est. Patient 15:14:48 CDT Susan Mckinnon MD [facility] Procedures Code Procedure Name Date Entry Date Standard Description CPT-A4570 Splint 15:14:48 CDT CPT-11776 Ankle Complete - Min 3V 14:40:31 CDT
--- OUTSIDE RECORDS SUMMARY | 2018-04-04 06:26 | XMS REPORT | Clinical Summary ---
Author Author Admin, OBDULIO Organization [facility] Address Unknown Phone Unavailable Allergies, Adverse Reactions, Alerts Allergy Name Reaction Description Start Date Severity Status Provider No Known Allergies Linda Elder Conditions or Problems Problem Name Problem Code [...] PhD Concussion with no loss of consciousness ANKLE PAIN, RIGHT ICD-719.47 Inactive Steffany Lynch [...] Generic Name NDC Status Provider Patient Instruction TYLENOL WITH CODEINE #3 300-30 MG TABS 1 pill by mouth up to every 6 hours if needed for pain ACETAMINOPHEN-CODEINE 54648957368 Active Steffany Lynch MD PhD Active PREDNISONE 20 MG TAB 2 tablets today, then 1 tablet days 2 and 3 PREDNISONE 05104064270 No Longer Active Steffany Lynch MD PhD Active FLONASE 50 MCG/ACT SUSP 1 spray each nostril am and hs FLUTICASONE PROPIONATE 90404449172 Active Carter Blanco DO Active ZITHROMAX 250 MG TAB 2 po today, then 1 po q days 2-5 AZITHROMYCIN 63937750447 No Longer Active Julián Sue MD Active FLONASE 50 MCG/ACT SUSP 1 puff in each nostril twice daily 12/30 FLUTICASONE PROPIONATE 74694432419 No Longer Active Elle Giang APRN Active AMOXICILLIN 875 MG TABS 1 bid AMOXICILLIN 71058619589 No Longer Active Elle Giang APRN Active AMOXICILLIN 875 MG TABS 1 bid AMOXICILLIN 875 MG TABS 360820 AMOXICILLIN Inactive FLONASE 50 MCG/ACT SUSP 1 puff in each nostril twice daily 12/30 FLONASE 50 MCG/ACT SUSP 656882 FLUTICASONE PROPIONATE Inactive PREDNISONE 20 MG TAB 2 tablets today, then 1 tablet days 2 and 3 PREDNISONE 20 MG TAB 629015 PREDNISONE Inactive ZITHROMAX 250 MG TAB 2 po today, then 1 po q days 2-5 ZITHROMAX 250 MG TAB 4738612 AZITHROMYCIN Inactive Immunizations Vaccine Administration Date Value Standard Description Adacel (Tetanus, reduced Diphtheria, and acellular Pertussis Immunization) Adacel [[id number]] tetanus toxoid, reduced diphtheria toxoid, and acellular [...] Range Description blood pressure, diastolic - 8462-4 70 mm[Hg] [...] E&M - 3141-9 235.3 [lb_av] Weight Measured blood pressure, diastolic - 8462-4 91 mm[Hg] BP mata blood pressure, systolic - 8480-6 161 mm[Hg] BP sys pulse rate E&M - 8867-4 83 /min Heart rate temperature E&M 98.0 [degF] Body temperature weight E&M - 3141-9 234 [lb_av] Weight Measured blood pressure, diastolic - 8462-4 83 mm[Hg] BP mata blood pressure, systolic - 8480-6 151 mm[Hg] BP sys pulse rate E&M - 8867-4 87 /min Heart rate temperature E&M 97.8 [degF] Body temperature weight E&M - 3141-9 227 [lb_av] Weight Measured Diagnostic Results Date Name Value Unit Range Description Lab Report: RapidStrep Rflx/Cx - Lab Microbial identification kit, rapid strep method Negative-Throat Culture to Follow Negative Encounters Code Encounter Date Provider Facility [facility]-64236 Level 2 Est. Patient 15:48:46 CDT Steffany Lynch MD [facility]-32921 Level 2 Est. Patient 13:26:32 CDT Steffany Lynch MD [facility]-35935 Level 3 Est. Patient 10:13:02 CDT Steffany Lynch MD [facility]-05142 Level 2 New Patient 14:45:33 CDT Steffany Lynch MD [facility]-32294 Level 3 Est. Patient 16:57:05 STORE RECEIVING CLERK Carter Blanco [facility]-43087 Level 3 Est. Patient 09:58:27 CDT Julián Sue MD [facility]-03617 Level 3 Est. Patient 10:17:17 STORE RECEIVING CLERK Carter Blanco [facility]-32887 Level 3 Est. Patient 10:42:29 STORE RECEIVING CLERK Elle Giang APRN [facility]-47842 Level 3 Est. Patient 10:00:26 CDT Susan Mckinnon MD [facility]-45670 Level 3 Est. Patient 15:14:48 CDT Susan Mckinnon MD [facility] Procedures Code Procedure Name Date Entry Date Standard Description CPT-A4570 Splint 15:14:48 CDT CPT-83591 Ankle Complete - Min 3V 14:40:31 CDT
--- OUTSIDE RECORDS SUMMARY | 2018-04-04 06:26 | XMS REPORT | Clinical Summary ---
Author Author Admin, OBDULIO Organization [facility] Address Unknown Phone Unavailable Allergies, Adverse Reactions, [...] sprays each nostril daily 03/21 FLUTICASONE PROPIONATE [id number] Active Richllina Shawn CARRENON Active AUGMENTIN 875-125 MG TAB 1 po BID x 10 days AMOXICILLIN-POT CLAVULANATE 37492807962 No Longer Active Richllina Lizetl MOONER Active CLARITIN 10 MG TAB 1 tablet by mouth daily as needed for allergies LORATADINE 23180365574 Active Jillina Frazell MOONER Active PREDNISONE 20 MG TAB 2 tabs daily for 3 days, 1 tab daily for 3 days, 1/2 tab daily for 2 days PREDNISONE 04970420462 No Longer Active Jillina Frazell MOONER Active AZITHROMYCIN 250 MG TABS 2 po qd x 1 day, then 1 po qd x 4 days AZITHROMYCIN 90302642980 No Longer Active Jillina Frabeatrizl MOONER Active FLONASE 50 MCG/ACT SUSP 1 spray each nostril twice daily for allergies and runny nose FLUTICASONE PROPIONATE 12880837291 No Longer Active Jillina Frazell MOONER Active CEFTIN 500 MG TAB 1 twice a day CEFUROXIME AXETIL 75796196296 No Longer Active Jillina Frazell MOONER Active PREDNISONE 20 MG TAB 2 tablets today, then 1 tablet days 2 and 3 PREDNISONE 89910535535 No Longer Active Jillina Frazell MOONER Active TYLENOL WITH CODEINE #3 300-30 MG TABS 1 pill by mouth up to every 6 hours if needed for pain ACETAMINOPHEN-CODEINE 12336541413 No Longer Active Carter Blanco DO Active FLONASE 50 MCG/ACT SUSP 1 spray each nostril am and hs FLUTICASONE PROPIONATE 64299059005 No Longer Active Carter Blanco DO Active PREDNISONE 20 MG TAB 2 tablets today, then 1 tablet days 2 and 3 PREDNISONE 95282245545 No Longer Active Steffany Lynch MD PhD Active ZITHROMAX 250 MG TAB 2 po today, then 1 po q days 2-5 AZITHROMYCIN 82494025420 No Longer Active Julián Sue MD Active FLONASE 50 MCG/ACT SUSP 1 puff in each nostril twice daily 12/30 FLUTICASONE PROPIONATE 06421697843 No Longer Active Elle Giang APRN Active AMOXICILLIN 875 MG TABS 1 bid AMOXICILLIN 05542934268 No Longer Active Elle Giang APRN Active CEFTIN 500 MG TAB 1 twice a day CEFTIN 500 MG TAB 913041 CEFUROXIME AXETIL Inactive PREDNISONE 20 MG TAB 2 tablets today, then 1 tablet days 2 and 3 PREDNISONE 20 MG TAB 198843 PREDNISONE Inactive PREDNISONE 20 MG TAB 2 tablets today, then 1 tablet days 2 and 3 PREDNISONE 20 MG TAB 618773 PREDNISONE Inactive PREDNISONE 20 MG TAB 2 tabs daily for 3 days, 1 tab daily for 3 days, 1/2 tab daily for 2 days PREDNISONE 20 MG TAB 781190 PREDNISONE Inactive TYLENOL WITH CODEINE #3 300-30 MG TABS 1 pill by mouth up to every 6 hours if needed for pain TYLENOL WITH CODEINE #3 300-30 MG TABS 222800 ACETAMINOPHEN-CODEINE Inactive AUGMENTIN 875-125 MG TAB 1 po BID x 10 days AUGMENTIN 875-125 MG TAB 960155 AMOXICILLIN-POT CLAVULANATE Inactive ZITHROMAX 250 MG TAB 2 po today, then 1 po q days 2-5 ZITHROMAX 250 MG TAB 0945621 AZITHROMYCIN Inactive AZITHROMYCIN 250 MG TABS 2 po qd x 1 day, then 1 po qd x 4 days AZITHROMYCIN 250 MG TABS 8776248 AZITHROMYCIN Inactive AMOXICILLIN 875 MG TABS 1 bid AMOXICILLIN 875 MG TABS 800111 AMOXICILLIN Inactive FLONASE 50 MCG/ACT SUSP 1 puff in each nostril twice daily 12/30 FLONASE 50 MCG/ACT SUSP FLUTICASONE PROPIONATE Inactive FLONASE 50 MCG/ACT SUSP 1 spray each nostril am and hs FLONASE 50 MCG/ACT SUSP FLUTICASONE PROPIONATE Inactive FLONASE 50 MCG/ACT SUSP 1 spray each nostril twice daily for allergies and runny nose FLONASE 50 MCG/ACT SUSP FLUTICASONE PROPIONATE Inactive Immunizations Vaccine Administration Date Value Standard Description Adacel (Tetanus, reduced Diphtheria, and acellular Pertussis Immunization) Adacel [[id number]] tetanus toxoid, reduced diphtheria toxoid, and acellular [...] Negative Encounters Code Encounter Date Provider Facility CPT-11644 Level 3 Est. Patient 13:56:53 CASHIER PAYMENTS RECEIVED Wilberto Escobar [facility] CPT-82257 Level 3 Est. Patient 09:50:19 CASHIER PAYMENTS RECEIVED Wilberto Escobar [facility] CPT-63725 Level 3 Est. Patient 18:01:13 CDT Carter Blanco DO [facility] CPT-62697 Level 2 Est. Patient 15:48:46 CDT Steffany Lynch MD [facility] CPT-35257 Level 2 Est. Patient 13:26:32 CDT Steffany Lynch MD [facility] CPT-42905 Level 3 Est. Patient 10:13:02 CDT Steffany Lynch MD [facility] CPT-99141 Level 2 New Patient 14:45:33 CDT Steffany Lynch MD [facility] CPT-95922 Level 3 Est. Patient 16:57:05 CASHIER PAYMENTS RECEIVED Carter Blanco [facility] CPT-00936 Level 3 Est. Patient 09:58:27 CDT Julián Sue MD [facility] CPT-32418 Level 3 Est. Patient 10:17:17 CASHIER PAYMENTS RECEIVED Carter Blanco [facility] CPT-42944 Level 3 Est. Patient 10:42:29 CASHIER PAYMENTS RECEIVED Elle Giang APRN [facility] CPT-94051 Level 3 Est. Patient 10:00:26 CDT Susan Mckinnon MD [facility] CPT-96991 Level 3 Est. Patient 15:14:48 CDT Susan Mckinnon MD [facility] Procedures Code Procedure Name Date Entry Date Standard Description CPT-A4570 Splint 15:14:48 CDT CPT-37155 Ankle Complete - Min 3V 14:40:31 CDT
--- OUTSIDE RECORDS SUMMARY | 2018-04-04 06:27 | XMS REPORT | Clinical Summary ---
Author Author Admin, OBDULIO Organization [facility] Address Unknown Phone Unavailable Allergies, Adverse Reactions, [...] 6 hours if needed for pain ACETAMINOPHEN-CODEINE 99204046679 Active Steffany Lynch MD PhD Active PREDNISONE 20 MG TAB 2 tablets today, then 1 tablet days 2 and 3 PREDNISONE 30128246761 No Longer Active Steffany Lynch MD PhD Active FLONASE 50 MCG/ACT SUSP 1 spray each nostril am and hs FLUTICASONE PROPIONATE 43737918483 Active Carter Blanco DO Active ZITHROMAX 250 MG TAB 2 po today, then 1 po q days 2-5 AZITHROMYCIN 71767658774 No Longer Active Julián Sue MD Active FLONASE 50 MCG/ACT SUSP 1 puff in each nostril twice daily 12/30 FLUTICASONE PROPIONATE 62173489159 No Longer Active Elle Giang APRN Active AMOXICILLIN 875 MG TABS 1 bid AMOXICILLIN 14851903922 No Longer Active Elle Giang APRN Active AMOXICILLIN 875 MG TABS 1 bid AMOXICILLIN 875 MG TABS 931285 AMOXICILLIN Inactive FLONASE 50 MCG/ACT SUSP 1 puff in each nostril twice daily 12/30 FLONASE 50 MCG/ACT SUSP 154299 FLUTICASONE PROPIONATE Inactive PREDNISONE 20 MG TAB 2 tablets today, then 1 tablet days 2 and 3 PREDNISONE 20 MG TAB 465013 PREDNISONE Inactive ZITHROMAX 250 MG TAB 2 po today, then 1 po q days 2-5 ZITHROMAX 250 MG TAB 8126831 AZITHROMYCIN Inactive Immunizations Vaccine Administration Date Value Standard Description Adacel (Tetanus, reduced Diphtheria, and acellular Pertussis Immunization) Adacel [[id number]] tetanus toxoid, reduced diphtheria toxoid, and acellular [...] Negative Encounters Code Encounter Date Provider Facility [facility]-80000 Level 2 Est. Patient 15:48:46 CDT Steffany Lynch MD [facility]-53740 Level 2 Est. Patient 13:26:32 CDT Steffany Lynch MD [facility]-84232 Level 3 Est. Patient 10:13:02 CDT Steffany Lynch MD [facility]-98767 Level 2 New Patient 14:45:33 CDT Steffany Lynch MD [facility]-91532 Level 3 Est. Patient 16:57:05 SAGGER MAKER Carter Blanco [facility]-81247 Level 3 Est. Patient 09:58:27 CDT Julián Sue MD [facility]-50262 Level 3 Est. Patient 10:17:17 SAGGER MAKER Carter Blanco [facility]-84805 Level 3 Est. Patient 10:42:29 SAGGER MAKER Elle Giang APRN [facility]-35349 Level 3 Est. Patient 10:00:26 CDT Susan Mckinnon MD [facility]-46279 Level 3 Est. Patient 15:14:48 CDT Susan Mckinnon MD [facility] Procedures Code Procedure Name Date Entry Date Standard Description CPT-A4570 Splint 15:14:48 CDT CPT-54857 Ankle Complete - Min 3V 14:40:31 CDT
--- OUTSIDE RECORDS SUMMARY | 2018-04-04 06:27 | XMS REPORT | Clinical Summary ---
Author Author Admin, OBDULIO Organization [facility] Address Unknown Phone Unavailable Allergies, Adverse Reactions, Alerts Allergy Name Reaction Description Start Date Severity Status Provider No Known Allergies Yaquelin Sanchez Conditions or Problems Problem Name Problem Code [...] 462 Active Wilberto Escobar APRN Acute pharyngitis Bronchitis, acute with mild bronchospasm 466.0 Active Anastasia Martino APRN Acute bronchitis ANKLE PAIN, RIGHT ICD-719.47 Inactive Steffany Lynch [...] Generic Name NDC Status Provider Patient Instruction CHERATUSSIN AC 100-10 MG/5ML SYRP 1 tsp by mouth every 4 hours as needed for cough GUAIFENESIN-CODEINE 24489149826 Active Anastasia Martino APRN Active ZITHROMAX Z-YOSEF 250 MG TABS 2 today and then 1 daily for 4 days AZITHROMYCIN 29545809090 Active Anastasia Martino APRN Active BACTRIM DS 800-160 MG TAB 1 tab by mouth twice daily TRIMETHOPRIM-SULFAMETHOXAZOLE 60743850293 No Longer Active Julián Sue MD Active CLARITIN 10 MG TAB 1 tablet by mouth daily as needed for allergies LORATADINE 29555744946 No Longer Active Julián Sue MD Active FLUTICASONE PROPIONATE 50 MCG/ACT SUSP 1 to 2 sprays each nostril daily 03/21 FLUTICASONE PROPIONATE 70067585306 No Longer Active Julián Sue MD Active AUGMENTIN 875-125 MG TAB 1 po BID x 10 days AMOXICILLIN-POT CLAVULANATE 29167234964 No Longer Active Jillina Frazell PLATING TANK OPERATOR APPRENTICE Active PREDNISONE 20 MG TAB 2 tabs daily for 3 days, 1 tab daily for 3 days, 1/2 tab daily for 2 days PREDNISONE 50226346953 No Longer Active Jillina Frazell PLATING TANK OPERATOR APPRENTICE Active AZITHROMYCIN 250 MG TABS 2 po qd x 1 day, then 1 po qd x 4 days AZITHROMYCIN 44691856500 No Longer Active Jillina Frazell PLATING TANK OPERATOR APPRENTICE Active FLONASE 50 MCG/ACT SUSP 1 spray each nostril twice daily for allergies and runny nose FLUTICASONE PROPIONATE 36171885689 No Longer Active Jillina Frazell PLATING TANK OPERATOR APPRENTICE Active CEFTIN 500 MG TAB 1 twice a day CEFUROXIME AXETIL 13443211489 No Longer Active Jillina Frazell PLATING TANK OPERATOR APPRENTICE Active PREDNISONE 20 MG TAB 2 tablets today, then 1 tablet days 2 and 3 PREDNISONE 31827016371 No Longer Active Jillina Frazell PLATING TANK OPERATOR APPRENTICE Active TYLENOL WITH CODEINE #3 300-30 MG TABS 1 pill by mouth up to every 6 hours if needed for pain ACETAMINOPHEN-CODEINE 29610549522 No Longer Active Carter Blanco DO Active FLONASE 50 MCG/ACT SUSP 1 spray each nostril am and hs FLUTICASONE PROPIONATE 26048971109 No Longer Active Carter Blanco DO Active PREDNISONE 20 MG TAB 2 tablets today, then 1 tablet days 2 and 3 PREDNISONE 89831912487 No Longer Active Steffany Lynch MD PhD Active ZITHROMAX 250 MG TAB 2 po today, then 1 po q days 2-5 AZITHROMYCIN 87267109069 No Longer Active Julián Sue MD Active FLONASE 50 MCG/ACT SUSP 1 puff in each nostril twice daily 12/30 FLUTICASONE PROPIONATE 33029005114 No Longer Active Elle Giang APRN Active AMOXICILLIN 875 MG TABS 1 bid AMOXICILLIN 50345178373 No Longer Active Elle Giang APRN Active AMOXICILLIN 875 MG TABS 1 bid AMOXICILLIN 875 MG TABS 268466 AMOXICILLIN Inactive FLONASE 50 MCG/ACT SUSP 1 puff in each nostril twice daily 12/30 FLONASE 50 MCG/ACT SUSP FLUTICASONE PROPIONATE Inactive PREDNISONE 20 MG TAB 2 tablets today, then 1 tablet days 2 and 3 PREDNISONE 20 MG TAB 852252 PREDNISONE Inactive FLONASE 50 MCG/ACT SUSP 1 spray each nostril am and hs FLONASE 50 MCG/ACT SUSP FLUTICASONE PROPIONATE Inactive TYLENOL WITH CODEINE #3 300-30 MG TABS 1 pill by mouth up to every 6 hours if needed for pain TYLENOL WITH CODEINE #3 300-30 MG TABS 260801 ACETAMINOPHEN-CODEINE Inactive PREDNISONE 20 MG TAB 2 tablets today, then 1 tablet days 2 and 3 PREDNISONE 20 MG TAB 838881 PREDNISONE Inactive CEFTIN 500 MG TAB 1 twice a day CEFTIN 500 MG TAB 289718 CEFUROXIME AXETIL Inactive FLONASE 50 MCG/ACT SUSP 1 spray each nostril twice daily for allergies and runny nose FLONASE 50 MCG/ACT SUSP FLUTICASONE PROPIONATE Inactive FLUTICASONE PROPIONATE 50 MCG/ACT SUSP 1 to 2 sprays each nostril daily 03/21 FLUTICASONE PROPIONATE 50 MCG/ACT SUSP 4945666 FLUTICASONE PROPIONATE Inactive CLARITIN 10 MG TAB 1 tablet by mouth daily as needed for allergies CLARITIN 10 MG TAB 364037 LORATADINE Inactive ZITHROMAX 250 MG TAB 2 po today, then 1 po q days 2-5 ZITHROMAX 250 MG TAB 9422667 AZITHROMYCIN Inactive AZITHROMYCIN 250 MG TABS 2 po qd x 1 day, then 1 po qd x 4 days AZITHROMYCIN 250 MG TABS 2181353 AZITHROMYCIN Inactive PREDNISONE 20 MG TAB 2 tabs daily for 3 days, 1 tab daily for 3 days, 1/2 tab daily for 2 days PREDNISONE 20 MG TAB 959794 PREDNISONE Inactive AUGMENTIN 875-125 MG TAB 1 po BID x 10 days AUGMENTIN 875-125 MG TAB 558289 AMOXICILLIN-POT CLAVULANATE Inactive BACTRIM DS 800-160 MG TAB 1 tab by mouth twice daily BACTRIM DS 800-160 MG TAB 666792 TRIMETHOPRIM-SULFAMETHOXAZOLE Inactive Immunizations Vaccine Administration Date Value Standard Description Adacel (Tetanus, reduced Diphtheria, and acellular Pertussis Immunization) Adacel [[id number]] tetanus toxoid, reduced diphtheria toxoid, and acellular [...] BP mata blood pressure, systolic - 8480-6 149 mm[Hg] BP sys height E&M - 8302-2 77 [in_us] Bdy height pulse rate E&M - 8867-4 80 /min Heart rate temperature E&M 98.4 [degF] Body temperature weight E&M - 3141-9 251 [lb_av] Weight Measured blood pressure, diastolic - 8462-4 90 mm[Hg] [...] E&M - 3141-9 246.5 [lb_av] Weight Measured Diagnostic Results Date Name [...] Negative Encounters Code Encounter Date Provider Facility CPT-69695 Level 3 Est. Patient 14:06:42 CERTIFIED REAL ESTATE APPRAISER Anastasia Martino [facility] CPT-85426 Level 3 Est. Patient 12:30:51 CDT Julián Sue MD [facility] CPT-23211 Level 3 Est. Patient 13:56:53 CERTIFIED REAL ESTATE APPRAISER Wilberto Escobar [facility] CPT-23221 Level 3 Est. Patient 09:50:19 CERTIFIED REAL ESTATE APPRAISER Wilberto Escobar [facility] CPT-22214 Level 3 Est. Patient 18:01:13 CDT Carter Blanco DO [facility] CPT-48886 Level 2 Est. Patient 15:48:46 CDT Steffany Lynch MD [facility] CPT-24764 Level 2 Est. Patient 13:26:32 CDT Steffany Lynch MD [facility] CPT-32216 Level 3 Est. Patient 10:13:02 CDT Steffany Lynch MD [facility] CPT-38668 Level 2 New Patient 14:45:33 CDT Steffany Lynch MD [facility] CPT-39996 Level 3 Est. Patient 16:57:05 CERTIFIED REAL ESTATE APPRAISER Carter Blanco [facility] CPT-33332 Level 3 Est. Patient 09:58:27 CDT Julián Sue MD [facility] CPT-19392 Level 3 Est. Patient 10:17:17 CERTIFIED REAL ESTATE APPRAISER Carter Blanco [facility] CPT-56078 Level 3 Est. Patient 10:42:29 CERTIFIED REAL ESTATE APPRAISER Elle Giang APRN [facility] CPT-00648 Level 3 Est. Patient 10:00:26 CDT Susan Mckinnon MD [facility] CPT-22970 Level 3 Est. Patient 15:14:48 CDT Susan Mckinnon MD [facility] Procedures Code Procedure Name Date Entry Date Standard Description CPT-A4570 Splint 15:14:48 CDT CPT-14777 Ankle Complete - Min 3V 14:40:31 CDT
--- OUTSIDE RECORDS SUMMARY | 2018-04-04 06:27 | XMS REPORT | Clinical Summary ---
Author Author Admin, OBDULIO Organization [facility] Address Unknown Phone Unavailable Allergies, Adverse Reactions, Alerts Allergy Name Reaction Description Start Date Severity Status Provider No Known Allergies India Hackett MA Conditions or Problems Problem Name Problem Code [...] Active Carter Blanco DO Acute maxillary sinusitis ANKLE PAIN, RIGHT ICD-719.47 Inactive Steffany Lynch [...] Generic Name NDC Status Provider Patient Instruction PREDNISONE 20 MG TAB 2 tablets today, then 1 tablet days 2 and 3 PREDNISONE 02853520657 Active Carter Blanco DO Active CEFTIN 500 MG TAB 1 twice a day CEFUROXIME AXETIL 55257897911 Active Carter Blanco DO Active FLONASE 50 MCG/ACT SUSP 1 spray each nostril twice daily for allergies and runny nose FLUTICASONE PROPIONATE 47440605921 Active Carter Blanco DO Active TYLENOL WITH CODEINE #3 300-30 MG TABS 1 pill by mouth up to every 6 hours if needed for pain ACETAMINOPHEN-CODEINE 69191833628 No Longer Active Carter Blanco DO Active FLONASE 50 MCG/ACT SUSP 1 spray each nostril am and hs FLUTICASONE PROPIONATE 18132346105 No Longer Active Carter Blanco DO Active PREDNISONE 20 MG TAB 2 tablets today, then 1 tablet days 2 and 3 PREDNISONE 53996149691 No Longer Active Steffany Lynch MD PhD Active ZITHROMAX 250 MG TAB 2 po today, then 1 po q days 2-5 AZITHROMYCIN 92209438132 No Longer Active Julián Sue MD Active FLONASE 50 MCG/ACT SUSP 1 puff in each nostril twice daily 12/30 FLUTICASONE PROPIONATE 47176417401 No Longer Active Elle Giang APRN Active AMOXICILLIN 875 MG TABS 1 bid AMOXICILLIN 99089447888 No Longer Active Elle Giang APRN Active AMOXICILLIN 875 MG TABS 1 bid AMOXICILLIN 875 MG TABS 674531 AMOXICILLIN Inactive FLONASE 50 MCG/ACT SUSP 1 puff in each nostril twice daily 12/30 FLONASE 50 MCG/ACT SUSP 070508 FLUTICASONE PROPIONATE Inactive PREDNISONE 20 MG TAB 2 tablets today, then 1 tablet days 2 and 3 PREDNISONE 20 MG TAB 286281 PREDNISONE Inactive FLONASE 50 MCG/ACT SUSP 1 spray each nostril am and hs FLONASE 50 MCG/ACT SUSP 281068 FLUTICASONE PROPIONATE Inactive TYLENOL WITH CODEINE #3 300-30 MG TABS 1 pill by mouth up to every 6 hours if needed for pain TYLENOL WITH CODEINE #3 300-30 MG TABS 764170 ACETAMINOPHEN-CODEINE Inactive ZITHROMAX 250 MG TAB 2 po today, then 1 po q days 2-5 ZITHROMAX 250 MG TAB 3181294 AZITHROMYCIN Inactive Immunizations Vaccine Administration Date Value Standard Description Adacel (Tetanus, reduced Diphtheria, and acellular Pertussis Immunization) Adacel [[id number]] tetanus toxoid, reduced diphtheria toxoid, and acellular [...] Range Description blood pressure, diastolic - 8462-4 78 mm[Hg] [...] Negative Encounters Code Encounter Date Provider Facility [facility]-34352 Level 3 Est. Patient 18:01:13 CDT Carter Blanco [facility] CPT-70608 Level 2 Est. Patient 15:48:46 CDT Steffany Lynch MD [facility]-34465 Level 2 Est. Patient 13:26:32 CDT Steffany Lynch MD [facility]-28784 Level 3 Est. Patient 10:13:02 CDT Steffany Lynch MD [facility]-34529 Level 2 New Patient 14:45:33 CDT Steffany Lynch MD [facility]-80689 Level 3 Est. Patient 16:57:05 PHLEBOTOMIST Carter Blanco [facility] CPT-48189 Level 3 Est. Patient 09:58:27 CDT Julián Sue MD [facility]-74948 Level 3 Est. Patient 10:17:17 PHLEBOTOMIST Carter Blanco [facility] CPT-52476 Level 3 Est. Patient 10:42:29 PHLEBOTOMIST Elle Giang APRN [facility] CPT-45006 Level 3 Est. Patient 10:00:26 CDT Susan Mckinnon MD [facility]-73097 Level 3 Est. Patient 15:14:48 CDT Susan Mckinnon MD [facility] Procedures Code Procedure Name Date Entry Date Standard Description CPT-A4570 Splint 15:14:48 CDT CPT-93738 Ankle Complete - Min 3V 14:40:31 CDT
--- OUTSIDE RECORDS SUMMARY | 2018-04-04 06:27 | XMS REPORT | Clinical Summary ---
Author Author Admin, OBDULIO Organization [facility] Address Unknown Phone Unavailable Allergies, Adverse [...] 6 hours if needed for pain ACETAMINOPHEN-CODEINE 91623788073 Active Steffany Lynch MD PhD Active PREDNISONE 20 MG TAB 2 tablets today, then 1 tablet days 2 and 3 PREDNISONE 22648113239 No Longer Active Steffany Lynch MD PhD Active FLONASE 50 MCG/ACT SUSP 1 spray each nostril am and hs FLUTICASONE PROPIONATE 78097256245 Active Carter Blanco DO Active ZITHROMAX 250 MG TAB 2 po today, then 1 po q days 2-5 AZITHROMYCIN 69658680433 No Longer Active Julián Sue MD Active FLONASE 50 MCG/ACT SUSP 1 puff in each nostril twice daily 12/30 FLUTICASONE PROPIONATE 85126074488 No Longer Active Elle Giang APRN Active AMOXICILLIN 875 MG TABS 1 bid AMOXICILLIN 48111151054 No Longer Active Elle Giang APRN Active AMOXICILLIN 875 MG TABS 1 bid AMOXICILLIN 875 MG TABS 525725 AMOXICILLIN Inactive FLONASE 50 MCG/ACT SUSP 1 puff in each nostril twice daily 12/30 FLONASE 50 MCG/ACT SUSP 381783 FLUTICASONE PROPIONATE Inactive PREDNISONE 20 MG TAB 2 tablets today, then 1 tablet days 2 and 3 PREDNISONE 20 MG TAB 454384 PREDNISONE Inactive ZITHROMAX 250 MG TAB 2 po today, then 1 po q days 2-5 ZITHROMAX 250 MG TAB 0071997 AZITHROMYCIN Inactive Immunizations Vaccine Administration Date Value Standard Description Adacel (Tetanus, reduced Diphtheria, and acellular Pertussis Immunization) Adacel [[id number]] tetanus toxoid, reduced diphtheria toxoid, and acellular [...] Negative Encounters Code Encounter Date Provider Facility [facility]-68575 Level 2 Est. Patient 15:48:46 CDT Steffany Lynch MD [facility]-80816 Level 2 Est. Patient 13:26:32 CDT Steffany Lynch MD [facility]-87080 Level 3 Est. Patient 10:13:02 CDT Steffany Lynch MD [facility]-13754 Level 2 New Patient 14:45:33 CDT Steffany Lynch MD [facility]-99531 Level 3 Est. Patient 16:57:05 VOCATIONAL TRAINER Carter Blanco [facility]-34855 Level 3 Est. Patient 09:58:27 CDT Julián Sue MD [facility]-68028 Level 3 Est. Patient 10:17:17 VOCATIONAL TRAINER Carter Blanco [facility]-48537 Level 3 Est. Patient 10:42:29 VOCATIONAL TRAINER Elle Giang APRN [facility]-39011 Level 3 Est. Patient 10:00:26 CDT Susan Mckinnon MD [facility]-94551 Level 3 Est. Patient 15:14:48 CDT Susan Mckinnon MD [facility] Procedures Code Procedure Name Date Entry Date Standard Description CPT-A4570 Splint 15:14:48 CDT CPT-21137 Ankle Complete - Min 3V 14:40:31 CDT
--- OUTSIDE RECORDS SUMMARY | 2018-04-04 06:28 | XMS REPORT | Clinical Summary ---
Author Author Admin, OBDULIO Organization [facility] Address Unknown Phone Unavailable Allergies, Adverse [...] maxillary sinusitis Bronchitis 490 Active Wilberto Escobar DIRECTOR VALIDATION Bronchitis, not specified as acute or chronic [...] Steffany Lynch MD PhD Pharyngitis-Acute ICD-462 Inactive Setffany Lynch MD PhD Medication List Medication Instructions Start Date Stop Date Generic Name NDC Status Provider Patient Instruction FLUTICASONE PROPIONATE 50 MCG/ACT SUSP 1 to 2 sprays each nostril daily 03/21 FLUTICASONE PROPIONATE 16859812686 Active Annalisaina Shawn CARRENON Active AUGMENTIN 875-125 MG TAB 1 po BID x 10 days AMOXICILLIN-POT CLAVULANATE 57990445616 Active Jillina Lizetl DIRECTOR VALIDATION Active CLARITIN 10 MG TAB 1 tablet by mouth daily as needed for allergies LORATADINE 65999075580 Active Jillina Onelzell DIRECTOR VALIDATION Active PREDNISONE 20 MG TAB 2 tabs daily for 3 days, 1 tab daily for 3 days, 1/2 tab daily for 2 days PREDNISONE 78714739179 Active Jillina Frazell DIRECTOR VALIDATION Active AZITHROMYCIN 250 MG TABS 2 po qd x 1 day, then 1 po qd x 4 days AZITHROMYCIN 93893193735 No Longer Active Jillina Onelzell DIRECTOR VALIDATION Active FLONASE 50 MCG/ACT SUSP 1 spray each nostril twice daily for allergies and runny nose FLUTICASONE PROPIONATE 95873920372 No Longer Active Jillina Frazell DIRECTOR VALIDATION Active CEFTIN 500 MG TAB 1 twice a day CEFUROXIME AXETIL 02167023158 No Longer Active Jillina Frazell DIRECTOR VALIDATION Active PREDNISONE 20 MG TAB 2 tablets today, then 1 tablet days 2 and 3 PREDNISONE 67285174545 No Longer Active Jillina Frazell DIRECTOR VALIDATION Active TYLENOL WITH CODEINE #3 300-30 MG TABS 1 pill by mouth up to every 6 hours if needed for pain ACETAMINOPHEN-CODEINE 64571890461 No Longer Active Carter Blanco DO Active FLONASE 50 MCG/ACT SUSP 1 spray each nostril am and hs FLUTICASONE PROPIONATE 02808977803 No Longer Active Carter Blanco DO Active PREDNISONE 20 MG TAB 2 tablets today, then 1 tablet days 2 and 3 PREDNISONE 40508978120 No Longer Active Steffany Lynch MD PhD Active ZITHROMAX 250 MG TAB 2 po today, then 1 po q days 2-5 AZITHROMYCIN 30351857484 No Longer Active Julián Sue MD Active FLONASE 50 MCG/ACT SUSP 1 puff in each nostril twice daily 12/30 FLUTICASONE PROPIONATE 62120406671 No Longer Active Elle Giang APRN Active AMOXICILLIN 875 MG TABS 1 bid AMOXICILLIN 33355868234 No Longer Active Elle Giang APRN Active AMOXICILLIN 875 MG TABS 1 bid AMOXICILLIN 875 MG TABS 467022 AMOXICILLIN Inactive FLONASE 50 MCG/ACT SUSP 1 puff in each nostril twice daily 12/30 FLONASE 50 MCG/ACT SUSP FLUTICASONE PROPIONATE Inactive PREDNISONE 20 MG TAB 2 tablets today, then 1 tablet days 2 and 3 PREDNISONE 20 MG TAB 615128 PREDNISONE Inactive FLONASE 50 MCG/ACT SUSP 1 spray each nostril am and hs FLONASE 50 MCG/ACT SUSP FLUTICASONE PROPIONATE Inactive TYLENOL WITH CODEINE #3 300-30 MG TABS 1 pill by mouth up to every 6 hours if needed for pain TYLENOL WITH CODEINE #3 300-30 MG TABS 508930 ACETAMINOPHEN-CODEINE Inactive PREDNISONE 20 MG TAB 2 tablets today, then 1 tablet days 2 and 3 PREDNISONE 20 MG TAB 974787 PREDNISONE Inactive CEFTIN 500 MG TAB 1 twice a day CEFTIN 500 MG TAB 802391 CEFUROXIME AXETIL Inactive FLONASE 50 MCG/ACT SUSP 1 spray each nostril twice daily for allergies and runny nose FLONASE 50 MCG/ACT SUSP FLUTICASONE PROPIONATE Inactive ZITHROMAX 250 MG TAB 2 po today, then 1 po q days 2-5 ZITHROMAX 250 MG TAB 4134906 AZITHROMYCIN Inactive AZITHROMYCIN 250 MG TABS 2 po qd x 1 day, then 1 po qd x 4 days AZITHROMYCIN 250 MG TABS 9486716 AZITHROMYCIN Inactive Immunizations Vaccine Administration Date Value Standard Description Adacel (Tetanus, reduced Diphtheria, and acellular Pertussis Immunization) Adacel [[id number]] tetanus toxoid, reduced diphtheria toxoid, and acellular [...] E&M - [id number] [id number] [lb_av] Weight Measured Diagnostic Results Date Name [...] identification kit, rapid strep method Negative Negative Lab Report: RapidStrep Rflx/Cx - Lab Microbial identification kit, rapid strep method Negative-Throat Culture to Follow Negative Encounters Code Encounter Date Provider Facility CPT-09586 Level 3 Est. Patient 13:56:53 TRACE EVIDENCE TECHNICIAN Wilberto Escobar [facility]-69511 Level 3 Est. Patient 09:50:19 TRACE EVIDENCE TECHNICIAN Wilberto Escobar [facility]-02793 Level 3 Est. Patient 18:01:13 CDT Caretr Blanco [facility] CPT-93897 Level 2 Est. Patient 15:48:46 CDT Steffany Lynch MD [facility]-72629 Level 2 Est. Patient 13:26:32 CDT Steffany Lynch MD [facility] CPT-23429 Level 3 Est. Patient 10:13:02 CDT Steffany Lynch MD [facility]-20064 Level 2 New Patient 14:45:33 CDT Steffany Lynch MD [facility] CPT-88644 Level 3 Est. Patient 16:57:05 TRACE EVIDENCE TECHNICIAN Carter Blanco [facility]-07757 Level 3 Est. Patient 09:58:27 CDT Julián Seu MD [facility] CPT-18517 Level 3 Est. Patient 10:17:17 TRACE EVIDENCE TECHNICIAN Carter Blanco DO [facility] CPT-75665 Level 3 Est. Patient 10:42:29 TRACE EVIDENCE TECHNICIAN Elle Giang APRN [facility] CPT-21941 Level 3 Est. Patient 10:00:26 CDT Susan Mckinnon MD [facility] CPT-62053 Level 3 Est. Patient 15:14:48 CDT Susan Mckinnon MD [facility] Procedures Code Procedure Name Date Entry Date Standard Description CPT-A4570 Splint 15:14:48 CDT CPT-06291 Ankle Complete - Min 3V 14:40:31 CDT
--- OUTSIDE RECORDS SUMMARY | 2018-04-04 06:28 | XMS REPORT | Clinical Summary ---
Author Author Admin, OBDULIO Organization [facility] Address Unknown Phone Unavailable Allergies, [...] consciousness Sinusitis, maxillary, acute 461.0 Active Carter Balnco DO Acute maxillary sinusitis Bronchitis 490 Active [...] Generic Name NDC Status Provider Patient Instruction BACTRIM DS 800-160 MG TAB 1 tab by mouth twice daily TRIMETHOPRIM-SULFAMETHOXAZOLE 05254671889 No Longer Active Julián Sue MD Active CLARITIN 10 MG TAB 1 tablet by mouth daily as needed for allergies LORATADINE 68955748500 No Longer Active Julián Sue MD Active FLUTICASONE PROPIONATE 50 MCG/ACT SUSP 1 to 2 sprays each nostril daily 03/21 FLUTICASONE PROPIONATE 32778045676 No Longer Active Julián Sue MD Active AUGMENTIN 875-125 MG TAB 1 po BID x 10 days AMOXICILLIN-POT CLAVULANATE 33729721225 No Longer Active Wilberto Escobar APRN Active PREDNISONE 20 MG TAB 2 tabs daily for 3 days, 1 tab daily for 3 days, 1/2 tab daily for 2 days PREDNISONE 48637684293 No Longer Active Jillina Frazell INDEPENDENT FILM MAKER Active AZITHROMYCIN 250 MG TABS 2 po qd x 1 day, then 1 po qd x 4 days AZITHROMYCIN 97855017703 No Longer Active Jillina Frazell INDEPENDENT FILM MAKER Active FLONASE 50 MCG/ACT SUSP 1 spray each nostril twice daily for allergies and runny nose FLUTICASONE PROPIONATE 03958128244 No Longer Active Jillina Frazell INDEPENDENT FILM MAKER Active CEFTIN 500 MG TAB 1 twice a day CEFUROXIME AXETIL 36874384583 No Longer Active Jillina Frazell INDEPENDENT FILM MAKER Active PREDNISONE 20 MG TAB 2 tablets today, then 1 tablet days 2 and 3 PREDNISONE 58970774209 No Longer Active Richllina Lizetl KALA Active TYLENOL WITH CODEINE #3 300-30 MG TABS 1 pill by mouth up to every 6 hours if needed for pain ACETAMINOPHEN-CODEINE 37032842137 No Longer Active Carter Blanco DO Active FLONASE 50 MCG/ACT SUSP 1 spray each nostril am and hs FLUTICASONE PROPIONATE 62193963916 No Longer Active Carter Blanco DO Active PREDNISONE 20 MG TAB 2 tablets today, then 1 tablet days 2 and 3 PREDNISONE 44531732799 No Longer Active Steffany Lynch MD PhD Active ZITHROMAX 250 MG TAB 2 po today, then 1 po q days 2-5 AZITHROMYCIN 84986599884 No Longer Active Julián Sue MD Active FLONASE 50 MCG/ACT SUSP 1 puff in each nostril twice daily 12/30 FLUTICASONE PROPIONATE 13374690013 No Longer Active Elle Giang APRN Active AMOXICILLIN 875 MG TABS 1 bid AMOXICILLIN 38967169096 No Longer Active Elle Giang APRN Active AMOXICILLIN 875 MG TABS 1 bid AMOXICILLIN 875 MG TABS 234553 AMOXICILLIN Inactive FLONASE 50 MCG/ACT SUSP 1 puff in each nostril twice daily 12/30 FLONASE 50 MCG/ACT SUSP FLUTICASONE PROPIONATE Inactive PREDNISONE 20 MG TAB 2 tablets today, then 1 tablet days 2 and 3 PREDNISONE 20 MG TAB 090855 PREDNISONE Inactive FLONASE 50 MCG/ACT SUSP 1 spray each nostril am and hs FLONASE 50 MCG/ACT SUSP FLUTICASONE PROPIONATE Inactive TYLENOL WITH CODEINE #3 300-30 MG TABS 1 pill by mouth up to every 6 hours if needed for pain TYLENOL WITH CODEINE #3 300-30 MG TABS 686810 ACETAMINOPHEN-CODEINE Inactive PREDNISONE 20 MG TAB 2 tablets today, then 1 tablet days 2 and 3 PREDNISONE 20 MG TAB 175184 PREDNISONE Inactive CEFTIN 500 MG TAB 1 twice a day CEFTIN 500 MG TAB 442378 CEFUROXIME AXETIL Inactive FLONASE 50 MCG/ACT SUSP 1 spray each nostril twice daily for allergies and runny nose FLONASE 50 MCG/ACT SUSP FLUTICASONE PROPIONATE Inactive FLUTICASONE PROPIONATE 50 MCG/ACT SUSP 1 to 2 sprays each nostril daily 03/21 FLUTICASONE PROPIONATE 50 MCG/ACT SUSP 908902 FLUTICASONE PROPIONATE Inactive CLARITIN 10 MG TAB 1 tablet by mouth daily as needed for allergies CLARITIN 10 MG TAB 713701 LORATADINE Inactive ZITHROMAX 250 MG TAB 2 po today, then 1 po q days 2-5 ZITHROMAX 250 MG TAB 4917703 AZITHROMYCIN Inactive AZITHROMYCIN 250 MG TABS 2 po qd x 1 day, then 1 po qd x 4 days AZITHROMYCIN 250 MG TABS 9579826 AZITHROMYCIN Inactive PREDNISONE 20 MG TAB 2 tabs daily for 3 days, 1 tab daily for 3 days, 1/2 tab daily for 2 days PREDNISONE 20 MG TAB 495519 PREDNISONE Inactive AUGMENTIN 875-125 MG TAB 1 po BID x 10 days AUGMENTIN 875-125 MG TAB 180640 AMOXICILLIN-POT CLAVULANATE Inactive BACTRIM DS 800-160 MG TAB 1 tab by mouth twice daily BACTRIM DS 800-160 MG TAB 126303 TRIMETHOPRIM-SULFAMETHOXAZOLE Inactive Immunizations Vaccine Administration Date Value Standard Description Adacel (Tetanus, reduced Diphtheria, and acellular Pertussis Immunization) Adacel [[id number]] tetanus toxoid, reduced diphtheria toxoid, and acellular [...] Negative Encounters Code Encounter Date Provider Facility [facility]-60556 Level 3 Est. Patient 12:30:51 CDT Julián Sue MD [facility]-07423 Level 3 Est. Patient 13:56:53 MOLD WORKER Wilberto Escobar [facility]-80330 Level 3 Est. Patient 09:50:19 MOLD WORKER Wilberto Escobar [facility]-00063 Level 3 Est. Patient 18:01:13 CDT Carter Blanco [facility]-92485 Level 2 Est. Patient 15:48:46 CDT Steffany Lynch MD [facility]-85249 Level 2 Est. Patient 13:26:32 CDT Steffany Lynch MD PhD [facility] [place]-47459 Level 3 Est. Patient 10:13:02 CDT Steffany Lynch MD PhD [facility] CPT-59720 Level 2 New Patient 14:45:33 CDT Steffany Lynch MD [facility]-63090 Level 3 Est. Patient 16:57:05 MOLD WORKER Carter Blanco [facility]-62623 Level 3 Est. Patient 09:58:27 CDT Julián Sue MD [facility] [place]-69156 Level 3 Est. Patient 10:17:17 MOLD WORKER Carter Blanco DO [facility] CPT-40411 Level 3 Est. Patient 10:42:29 MOLD WORKER Elle Giang APRN [facility] CPT-05829 Level 3 Est. Patient 10:00:26 CDT Susan Mckinnon MD [facility] CPT-62369 Level 3 Est. Patient 15:14:48 CDT Susan Mckinnon MD [facility] Procedures Code Procedure Name Date Entry Date Standard Description CPT-A4570 Splint 15:14:48 CDT CPT-10031 Ankle Complete - Min 3V 14:40:31 CDT
--- OUTSIDE RECORDS SUMMARY | 2018-04-04 06:28 | XMS REPORT | Clinical Summary ---
Author Author Admin, OBDULIO Organization [facility] Address Unknown Phone Unavailable Allergies, Adverse [...] 1 tablet days 2 and 3 PREDNISONE 72554502243 Active Carter Blanco DO Active CEFTIN 500 MG TAB 1 twice a day CEFUROXIME AXETIL 55077261008 Active Carter Blanco DO Active FLONASE 50 MCG/ACT SUSP 1 spray each nostril twice daily for allergies and runny nose FLUTICASONE PROPIONATE 10756426478 Active Carter Blanco DO Active TYLENOL WITH CODEINE #3 300-30 MG TABS 1 pill by mouth up to every 6 hours if needed for pain ACETAMINOPHEN-CODEINE 03549935161 No Longer Active Carter Blanco DO Active FLONASE 50 MCG/ACT SUSP 1 spray each nostril am and hs FLUTICASONE PROPIONATE 44128679417 No Longer Active Carter Blanco DO Active PREDNISONE 20 MG TAB 2 tablets today, then 1 tablet days 2 and 3 PREDNISONE 07605253158 No Longer Active Steffany Lynch MD PhD Active ZITHROMAX 250 MG TAB 2 po today, then 1 po q days 2-5 AZITHROMYCIN 55256423501 No Longer Active Julián Sue MD Active FLONASE 50 MCG/ACT SUSP 1 puff in each nostril twice daily 12/30 FLUTICASONE PROPIONATE 47161800907 No Longer Active Elle Giang APRN Active AMOXICILLIN 875 MG TABS 1 bid AMOXICILLIN 07411405968 No Longer Active Elle Giang APRN Active AMOXICILLIN 875 MG TABS 1 bid AMOXICILLIN 875 MG TABS 416686 AMOXICILLIN Inactive FLONASE 50 MCG/ACT SUSP 1 puff in each nostril twice daily 12/30 FLONASE 50 MCG/ACT SUSP FLUTICASONE PROPIONATE Inactive PREDNISONE 20 MG TAB 2 tablets today, then 1 tablet days 2 and 3 PREDNISONE 20 MG TAB 399854 PREDNISONE Inactive FLONASE 50 MCG/ACT SUSP 1 spray each nostril am and hs FLONASE 50 MCG/ACT SUSP FLUTICASONE PROPIONATE Inactive TYLENOL WITH CODEINE #3 300-30 MG TABS 1 pill by mouth up to every 6 hours if needed for pain TYLENOL WITH CODEINE #3 300-30 MG TABS 275855 ACETAMINOPHEN-CODEINE Inactive ZITHROMAX 250 MG TAB 2 po today, then 1 po q days 2-5 ZITHROMAX 250 MG TAB 6306464 AZITHROMYCIN Inactive Immunizations Vaccine Administration Date Value Standard Description Adacel (Tetanus, reduced Diphtheria, and acellular Pertussis Immunization) Adacel [[id number]] tetanus toxoid, reduced diphtheria toxoid, and acellular [...] Negative Encounters Code Encounter Date Provider Facility [facility]-23848 Level 3 Est. Patient 18:01:13 CDT Carter Blanco [facility] CPT-00084 Level 2 Est. Patient 15:48:46 CDT Steffany Lynch MD [facility]-89163 Level 2 Est. Patient 13:26:32 CDT Steffany Lynch MD [facility]-51132 Level 3 Est. Patient 10:13:02 CDT Steffany Lynch MD [facility]-05231 Level 2 New Patient 14:45:33 CDT Steffany Lynch MD [facility] CPT-86075 Level 3 Est. Patient 16:57:05 STRIPPER SOFT PLASTIC Carter Blanco [facility] CPT-40321 Level 3 Est. Patient 09:58:27 CDT Julián Sue MD [facility]-56463 Level 3 Est. Patient 10:17:17 STRIPPER SOFT PLASTIC Carter Blanco [facility] CPT-15853 Level 3 Est. Patient 10:42:29 STRIPPER SOFT PLASTIC Elle Giang APRN [facility] CPT-93111 Level 3 Est. Patient 10:00:26 CDT Susan Mckinnon MD [facility]-95180 Level 3 Est. Patient 15:14:48 CDT Susan Mckinnon MD [facility] Procedures Code Procedure Name Date Entry Date Standard Description CPT-A4570 Splint 15:14:48 CDT CPT-98643 Ankle Complete - Min 3V 14:40:31 CDT
--- OUTSIDE RECORDS SUMMARY | 2018-04-04 06:29 | XMS REPORT | Clinical Summary ---
Author Author Admin, OBDULIO Corley [facility] Address Unknown Phone Unavailable Allergies, Adverse Reactions, Alerts Allergy Name Reaction Description Start Date Severity Status Provider No Known Allergies Katelyn Contreras MA Conditions or Problems Problem Name Problem [...] Concussion with no loss of consciousness 850.0 Resolved Richard Montano MD Concussion with no loss of consciousness Sinusitis, maxillary, acute 461.0 Resolved Katelyn Contreras MA Acute maxillary sinusitis Bronchitis 490 Resolved Katelyn Contreras MA Bronchitis , not specified as acute or chronic Pharyngitis 462 Resolved Katelyn Contreras MA Acute pharyngitis Bronchitis, acute with mild bronchospasm 466.0 Resolved Katelyn Contreras MA Acute bronchitis Conjunctivitis, acute, left 372.00 Active Richard Montano MD Acute conjunctivitis, unspecified Sinusitis 473.9 Active Richard Montano MD Unspecified sinusitis (chronic) Body Mass Index 31.0-31.9 Adult Active Richard Montano MD Body Mass Index 31.0-31.9, adult Body Mass Index Percentile Pediatric greater than or equal to 95th percentile for age Active Richard Montano MD Body Mass Index, pediatric, greater than or equal to 95th percentile for age Other obesity due to excess calories 278.00 Active Richard Montano MD Obesity, unspecified ANKLE PAIN, RIGHT ICD-719.47 Inactive Steffany Lynch MD PhD Sinusitis-Acute ICD-461.9 Inactive Susan Mckinnon MD Abdominal pain, right upper quadrant ICD-789.01 Inactive Steffany Lynch MD PhD Knee pain, right ICD-719.46 Inactive Steffany Lynch MD PhD SINUSITIS, ACUTE ICD-461.9 Inactive Julián Sue MD Nasal congestion ICD-478.19 Inactive Steffany Lynch MD PhD Pharyngitis-Acute ICD-462 Inactive Steffany Lynch MD PhD Concussion with no loss of consciousness ICD-850.0 Inactive Richard Montano MD Sinusitis, maxillary, acute ICD-461.0 Inactive Katelyn Contreras MA Bronchitis ICD-490 Inactive Katelyn Contreras MA Pharyngitis ICD-462 Inactive Katelyn Contreras MA Bronchitis, acute with mild bronchospasm ICD-466.0 Inactive Katelyn Contreras MA Medication List Medication Instructions Start Date Stop Date Generic Name NDC Status Provider Patient Instruction AMOXICILLIN 500 MG TABS Take two tablets by mouth every 12 hours for 10 days AMOXICILLIN 79181927748 Active Richard Montano MD Active POLYTRIM 10827-7.1 UNIT/ML-% OPHTHALMIC SOLUTION 1 drop in the left eye four times a day for 5 days POLYMYXIN B-TRIMETHOPRIM 81626653238 Active Richard Montano MD Active ZITHROMAX Z-YOSEF 250 MG ORAL TABLET 2 today and then 1 daily for 4 days 01/02 AZITHROMYCIN 61042873750 No Longer Active Katelyn Contreras MA Active CHERATUSSIN AC 100-10 MG/5ML ORAL SYRUP 1 tsp by mouth every 4 hours as needed for cough GUAIFENESIN-CODEINE 86502023155 No Longer Active Katelyn Contreras MA Active BACTRIM DS 800-160 MG ORAL TABLET 1 tab by mouth twice daily 2015 TRIMETHOPRIM-SULFAMETHOXAZOLE 35308046858 No Longer Active Julián Sue MD Active CLARITIN 10 MG ORAL TABLET 1 tablet by mouth daily as needed for allergies LORATADINE 41457116612 No Longer Active Julián Sue MD Active FLUTICASONE PROPIONATE 50 MCG/ACT NASAL SUSPENSION 1 to 2 sprays each nostril daily FLUTICASONE PROPIONATE 47991861542 No Longer Active Julián Sue MD Active AUGMENTIN 875-125 MG ORAL TABLET 1 po BID x 10 days AMOXICILLIN-POT CLAVULANATE 18016177135 No Longer Active Wilberto Escobar APRN Active PREDNISONE 20 MG ORAL TABLET 2 tabs daily for 3 days, 1 tab daily for 3 days, 1/2 tab daily for 2 days PREDNISONE 98253985005 No Longer Active Jillina Frazell EMBROIDERER Active AZITHROMYCIN 250 MG ORAL TABLET 2 po qd x 1 day, then 1 po qd x 4 days 03/16 AZITHROMYCIN 04007680978 No Longer Active Jillina Frazell EMBROIDERER Active FLONASE 50 MCG/ACT NASAL SUSPENSION 1 spray each nostril twice daily for allergies and runny nose FLUTICASONE PROPIONATE 07135079736 No Longer Active Jillina Frazell EMBROIDERER Active CEFTIN 500 MG ORAL TABLET 1 twice a day CEFUROXIME AXETIL 35175834335 No Longer Active Jillina Frazell EMBROIDERER Active PREDNISONE 20 MG ORAL TABLET 2 tablets today, then 1 tablet days 2 and 3 2014 PREDNISONE 30014758175 No Longer Active Jillina Frazell EMBROIDERER Active TYLENOL WITH CODEINE #3 300-30 MG ORAL TABLET 1 pill by mouth up to every 6 hours if needed for pain ACETAMINOPHEN-CODEINE 57977899725 No Longer Active Carter Blanco DO Active FLONASE 50 MCG/ACT NASAL SUSPENSION 1 spray each nostril am and hs FLUTICASONE PROPIONATE 78950361387 No Longer Active Carter Blanco DO Active PREDNISONE 20 MG ORAL TABLET 2 tablets today, then 1 tablet days 2 and 3 2014 PREDNISONE 89546406870 No Longer Active Steffany Lynch MD PhD Active ZITHROMAX 250 MG ORAL TABLET 2 po today, then 1 po q days 2-5 AZITHROMYCIN 15188631477 No Longer Active Julián Sue MD Active FLONASE 50 MCG/ACT NASAL SUSPENSION 1 puff in each nostril twice daily 12/17 FLUTICASONE PROPIONATE 01733411462 No Longer Active Elle Giang APRN Active AMOXICILLIN 875 MG ORAL TABLET 1 bid AMOXICILLIN 57494012038 No Longer Active Elle Rahat EMBROIDERER Active AMOXICILLIN 875 MG ORAL TABLET 1 bid AMOXICILLIN 875 MG ORAL TABLET 901125 AMOXICILLIN Inactive FLONASE 50 MCG/ACT NASAL SUSPENSION 1 puff in each nostril twice daily 12/17 FLONASE 50 MCG/ACT NASAL SUSPENSION 2998243 FLUTICASONE PROPIONATE Inactive PREDNISONE 20 MG ORAL TABLET 2 tablets today, then 1 tablet days 2 and 3 2014 PREDNISONE 20 MG ORAL TABLET 632422 PREDNISONE Inactive FLONASE 50 MCG/ACT NASAL SUSPENSION 1 spray each nostril am and hs FLONASE 50 MCG/ACT NASAL SUSPENSION 5886984 FLUTICASONE PROPIONATE Inactive TYLENOL WITH CODEINE #3 300-30 MG ORAL TABLET 1 pill by mouth up to every 6 hours if needed for pain TYLENOL WITH CODEINE #3 300- 30 MG ORAL TABLET ACETAMINOPHEN-CODEINE Inactive PREDNISONE 20 MG ORAL TABLET 2 tablets today, then 1 tablet days 2 and 3 2014 PREDNISONE 20 MG ORAL TABLET 912261 PREDNISONE Inactive CEFTIN 500 MG ORAL TABLET 1 twice a day CEFTIN 500 MG ORAL TABLET CEFUROXIME AXETIL Inactive FLONASE 50 MCG/ACT NASAL SUSPENSION 1 spray each nostril twice daily for allergies and runny nose FLONASE 50 MCG/ACT NASAL SUSPENSION 7960756 FLUTICASONE PROPIONATE Inactive FLUTICASONE PROPIONATE 50 MCG/ACT NASAL SUSPENSION 1 to 2 sprays each nostril daily FLUTICASONE PROPIONATE 50 MCG/ACT NASAL SUSPENSION 2964131 FLUTICASONE PROPIONATE Inactive CLARITIN 10 MG ORAL TABLET 1 tablet by mouth daily as needed for allergies CLARITIN 10 MG ORAL TABLET 832484 LORATADINE Inactive CHERATUSSIN AC 100-10 MG/5ML ORAL SYRUP 1 tsp by mouth every 4 hours as needed for cough CHERATUSSIN AC 100-10 MG/5ML ORAL SYRUP 894799 GUAIFENESIN-CODEINE Inactive ZITHROMAX Z-YOSEF 250 MG ORAL TABLET 2 today and then 1 daily for 4 days 01/02 ZITHROMAX Z-YOSEF 250 MG ORAL TABLET 726453 AZITHROMYCIN Inactive ZITHROMAX 250 MG ORAL TABLET 2 po today, then 1 po q days 2-5 ZITHROMAX 250 MG ORAL TABLET 584811 AZITHROMYCIN Inactive AZITHROMYCIN 250 MG ORAL TABLET 2 po qd x 1 day, then 1 po qd x 4 days 03/16 AZITHROMYCIN 250 MG ORAL TABLET 382270 AZITHROMYCIN Inactive PREDNISONE 20 MG ORAL TABLET 2 tabs daily for 3 days, 1 tab daily for 3 days, 1/2 tab daily for 2 days PREDNISONE 20 MG ORAL TABLET 804359 PREDNISONE Inactive AUGMENTIN 875-125 MG ORAL TABLET 1 po BID x 10 days AUGMENTIN 875-125 MG ORAL TABLET 020302 AMOXICILLIN-POT CLAVULANATE Inactive BACTRIM DS 800-160 MG ORAL TABLET 1 tab by mouth twice daily 2015 BACTRIM DS 800-160 MG ORAL TABLET 140116 TRIMETHOPRIM- SULFAMETHOXAZOLE Inactive Immunizations Vaccine Administration Date Value Standard Description Adacel (Tetanus, reduced Diphtheria, and acellular Pertussis Immunization) Adacel [[id number]] tetanus toxoid, reduced diphtheria toxoid, and acellular [...] Name Value Unit Range Description blood pressure, diastolic, repeated by physician 90 BP mata blood pressure, diastolic 90 mm[Hg] BP mata blood pressure, systolic, repeated by physician 154 BP sys blood pressure, systolic 154 mm[Hg] BP sys height E&M 77 [in_us] Bdy height pulse rate E&M 90 /min Heart rate temperature E&M 99.3 [degF] Body temperature weight E&M 262.50 [lb_av] Weight Measured Encounters Code Encounter Date Provider Facility CPT-01718 [id number] Vst-Est Level III 11:10:44 CDT Richard Montano MD [facility] CPT-06828 Level 3 Est. Patient 14:06:42 CAR HOPPER Anastasia Martino [facility]-83228 Level 3 Est. Patient 12:30:51 CDT Julián Sue MD [facility]-27531 Level 3 Est. Patient 13:56:53 CAR HOPPER Wilberto Escobar [facility]-69778 Level 3 Est. Patient 09:50:19 CAR HOPPER Wilberto Escobar [facility]-44939 Level 3 Est. Patient 18:01:13 CDT Carter Blanco [facility] CPT-22958 Level 2 Est. Patient 15:48:46 CDT Steffany Lynch MD [facility]-22236 Level 2 Est. Patient 13:26:32 CDT Steffany Lynch MD [facility] CPT-87804 Level 3 Est. Patient 10:13:02 CD[facility] 2 New Patient 14:45:33 CDT Steffany Lynch MD [facility] CPT-00209 Level 3 Est. Patient 16:57:05 CAR HOPPER Carter Blanco [facility] CPT-10773 Level 3 Est. Patient 09:58:27 CDT Julián Sue MD [facility] CPT-31018 Level 3 Est. Patient 10:17:17 CAR HOPPER Carter Blanco [facility] CPT-06205 Level 3 Est. Patient 10:42:29 CAR HOPPER Elle Giang APRN [facility] CPT-12180 Level 3 Est. Patient 10:00:26 CDT Susan Mckinnon MD [facility]-15627 Level 3 Est. Patient 15:14:48 CDT Susan Mckinnon MD [facility] Procedures Code Procedure Name Date Entry Date Standard Description CPT-A4570 Splint 15:14:48 CDT CPT-49403 Ankle Complete - Min 3V 14:40:31 CDT
--- OUTSIDE RECORDS SUMMARY | 2018-04-04 06:29 | XMS REPORT | Clinical Summary ---
Author Author Admin, OBDULIO Corley [facility] Address Unknown Phone Unavailable Allergies, Adverse [...] every 12 hours for 10 days AMOXICILLIN 15429436019 Active Richard Montano MD Active POLYTRIM 53420-1.1 UNIT/ML-% OPHTHALMIC SOLUTION 1 drop in the left eye four times a day for 5 days POLYMYXIN B-TRIMETHOPRIM 66597035422 Active Richard Montano MD Active ZITHROMAX Z-YOSEF 250 MG ORAL TABLET 2 today and then 1 daily for 4 days 01/02 AZITHROMYCIN 29109546830 No Longer Active Katelyn Contreras MA Active CHERATUSSIN AC 100-10 MG/5ML ORAL SYRUP 1 tsp by mouth every 4 hours as needed for cough GUAIFENESIN-CODEINE 80925923341 No Longer Active Katelyn Contreras MA Active BACTRIM DS 800-160 MG ORAL TABLET 1 tab by mouth twice daily 2015 TRIMETHOPRIM-SULFAMETHOXAZOLE 35593335441 No Longer Active Julián Sue MD Active CLARITIN 10 MG ORAL TABLET 1 tablet by mouth daily as needed for allergies LORATADINE 16116651965 No Longer Active Julián Sue MD Active FLUTICASONE PROPIONATE 50 MCG/ACT NASAL SUSPENSION 1 to 2 sprays each nostril daily FLUTICASONE PROPIONATE 27487959714 No Longer Active Julián Sue MD Active AUGMENTIN 875-125 MG ORAL TABLET 1 po BID x 10 days AMOXICILLIN-POT CLAVULANATE 14242932878 No Longer Active Wilberto Escobar APRN Active PREDNISONE 20 MG ORAL TABLET 2 tabs daily for 3 days, 1 tab daily for 3 days, 1/2 tab daily for 2 days PREDNISONE 98637605901 No Longer Active Jillina Frazell MASTER CONTROL TECHNICIAN Active AZITHROMYCIN 250 MG ORAL TABLET 2 po qd x 1 day, then 1 po qd x 4 days 03/16 AZITHROMYCIN 95250068876 No Longer Active Jillina Frazell MASTER CONTROL TECHNICIAN Active FLONASE 50 MCG/ACT NASAL SUSPENSION 1 spray each nostril twice daily for allergies and runny nose FLUTICASONE PROPIONATE 76564525872 No Longer Active Jillina Frazell MASTER CONTROL TECHNICIAN Active CEFTIN 500 MG ORAL TABLET 1 twice a day CEFUROXIME AXETIL 51941220745 No Longer Active Jillina Frazell MASTER CONTROL TECHNICIAN Active PREDNISONE 20 MG ORAL TABLET 2 tablets today, then 1 tablet days 2 and 3 2014 PREDNISONE 26665621858 No Longer Active Jillina Frazell MASTER CONTROL TECHNICIAN Active TYLENOL WITH CODEINE #3 300-30 MG ORAL TABLET 1 pill by mouth up to every 6 hours if needed for pain ACETAMINOPHEN-CODEINE 21382219642 No Longer Active Carter Blanco DO Active FLONASE 50 MCG/ACT NASAL SUSPENSION 1 spray each nostril am and hs FLUTICASONE PROPIONATE 99217579692 No Longer Active Carter Blanco DO Active PREDNISONE 20 MG ORAL TABLET 2 tablets today, then 1 tablet days 2 and 3 2014 PREDNISONE 60821999264 No Longer Active Steffany Lynch MD PhD Active ZITHROMAX 250 MG ORAL TABLET 2 po today, then 1 po q days 2-5 AZITHROMYCIN 97609378963 No Longer Active Julián Sue MD Active FLONASE 50 MCG/ACT NASAL SUSPENSION 1 puff in each nostril twice daily 12/17 FLUTICASONE PROPIONATE 84280576929 No Longer Active Elle Giang APRN Active AMOXICILLIN 875 MG ORAL TABLET 1 bid AMOXICILLIN 94083156787 No Longer Active Elle Rahat MASTER CONTROL TECHNICIAN Active AMOXICILLIN 875 MG ORAL TABLET 1 bid AMOXICILLIN 875 MG ORAL TABLET 566357 AMOXICILLIN Inactive FLONASE 50 MCG/ACT NASAL SUSPENSION 1 puff in each nostril twice daily 12/17 FLONASE 50 MCG/ACT NASAL SUSPENSION 5000767 FLUTICASONE PROPIONATE Inactive PREDNISONE 20 MG ORAL TABLET 2 tablets today, then 1 tablet days 2 and 3 2014 PREDNISONE 20 MG ORAL TABLET 601781 PREDNISONE Inactive FLONASE 50 MCG/ACT NASAL SUSPENSION 1 spray each nostril am and hs FLONASE 50 MCG/ACT NASAL SUSPENSION 4902552 FLUTICASONE PROPIONATE Inactive TYLENOL WITH CODEINE #3 300-30 MG ORAL TABLET 1 pill by mouth up to every 6 hours if needed for pain TYLENOL WITH CODEINE #3 300- 30 MG ORAL TABLET ACETAMINOPHEN-CODEINE Inactive PREDNISONE 20 MG ORAL TABLET 2 tablets today, then 1 tablet days 2 and 3 2014 PREDNISONE 20 MG ORAL TABLET 270695 PREDNISONE Inactive CEFTIN 500 MG ORAL TABLET 1 twice a day CEFTIN 500 MG ORAL TABLET CEFUROXIME AXETIL Inactive FLONASE 50 MCG/ACT NASAL SUSPENSION 1 spray each nostril twice daily for allergies and runny nose FLONASE 50 MCG/ACT NASAL SUSPENSION 2825175 FLUTICASONE PROPIONATE Inactive FLUTICASONE PROPIONATE 50 MCG/ACT NASAL SUSPENSION 1 to 2 sprays each nostril daily FLUTICASONE PROPIONATE 50 MCG/ACT NASAL SUSPENSION 8331423 FLUTICASONE PROPIONATE Inactive CLARITIN 10 MG ORAL TABLET 1 tablet by mouth daily as needed for allergies CLARITIN 10 MG ORAL TABLET 244691 LORATADINE Inactive CHERATUSSIN AC 100-10 MG/5ML ORAL SYRUP 1 tsp by mouth every 4 hours as needed for cough CHERATUSSIN AC 100-10 MG/5ML ORAL SYRUP 458473 GUAIFENESIN-CODEINE Inactive ZITHROMAX Z-YOSEF 250 MG ORAL TABLET 2 today and then 1 daily for 4 days 01/02 ZITHROMAX Z-YOSEF 250 MG ORAL TABLET 417460 AZITHROMYCIN Inactive ZITHROMAX 250 MG ORAL TABLET 2 po today, then 1 po q days 2-5 ZITHROMAX 250 MG ORAL TABLET 872853 AZITHROMYCIN Inactive AZITHROMYCIN 250 MG ORAL TABLET 2 po qd x 1 day, then 1 po qd x 4 days 03/16 AZITHROMYCIN 250 MG ORAL TABLET 918386 AZITHROMYCIN Inactive PREDNISONE 20 MG ORAL TABLET 2 tabs daily for 3 days, 1 tab daily for 3 days, 1/2 tab daily for 2 days PREDNISONE 20 MG ORAL TABLET 174486 PREDNISONE Inactive AUGMENTIN 875-125 MG ORAL TABLET 1 po BID x 10 days AUGMENTIN 875-125 MG ORAL TABLET 852419 AMOXICILLIN-POT CLAVULANATE Inactive BACTRIM DS 800-160 MG ORAL TABLET 1 tab by mouth twice daily 2015 BACTRIM DS 800-160 MG ORAL TABLET 342088 TRIMETHOPRIM- SULFAMETHOXAZOLE Inactive Immunizations Vaccine Administration Date Value Standard Description Adacel (Tetanus, reduced Diphtheria, and acellular Pertussis Immunization) Adacel [RDQ438] tetanus toxoid, reduced diphtheria toxoid, and acellular [...] Measured Encounters Code Encounter Date Provider Facility CPT-26370 50373-Lyl Vst-Est Level III 11:10:44 CDT Richard Montano MD [facility] CPT-06020 Level 3 Est. Patient 14:06:42 CHUCK WAGON DRIVER Anastasia Martino [facility]-75415 Level 3 Est. Patient 12:30:51 CDT Julián Sue MD [facility]-75917 Level 3 Est. Patient 13:56:53 CHUCK WAGON DRIVER Wilberto Escobar [facility]-02330 Level 3 Est. Patient 09:50:19 CHUCK WAGON DRIVER Wilberto Escobar [facility]-67812 Level 3 Est. Patient 18:01:13 CDT Carter Blanco [facility] CPT-91893 Level 2 Est. Patient 15:48:46 CDT Steffany Lynch MD [facility]-96802 Level 2 Est. Patient 13:26:32 CDT Steffany Lynch MD [facility] CPT-31811 Level 3 Est. Patient 10:13:02 CDT Steffany Lynch MD [facility] CPT-74151 Level 2 New Patient 14:45:33 CDT Steffany Lynch MD [facility] CPT-82080 Level 3 Est. Patient 16:57:05 CHUCK WAGON DRIVER aCrter Blanco [facility] CPT-54829 Level 3 Est. Patient 09:58:27 CDT Julián Sue MD [facility] CPT-20528 Level 3 Est. Patient 10:17:17 CHUCK WAGON DRIVER Carter Blanco [facility] CPT-61869 Level 3 Est. Patient 10:42:29 CHUCK WAGON DRIVER Elle Giang APRN [facility] CPT-56133 Level 3 Est. Patient 10:00:26 CDT Susan Mckinnon MD [facility]-58486 Level 3 Est. Patient 15:14:48 CDT Susan Mckinnon MD [facility] Procedures Code Procedure Name Date Entry Date Standard Description CPT-A4570 Splint 15:14:48 CDT CPT-29903 Ankle Complete - Min 3V 14:40:31 CDT
--- OUTSIDE RECORDS SUMMARY | 2018-04-04 06:30 | XMS REPORT | Clinical Summary ---
Author Author Admin, OBDULIO Organization [facility] Address Unknown Phone Unavailable Allergies, Adverse [...] maxillary sinusitis Bronchitis 490 Active Wilberto Escobar OVEN LOADER Bronchitis, not specified as acute or chronic [...] sprays each nostril daily 03/21 FLUTICASONE PROPIONATE 14533061144 Active Annalisaina Shawn CARRENON Active AUGMENTIN 875-125 MG TAB 1 po BID x 10 days AMOXICILLIN-POT CLAVULANATE 30016654936 Active Jillina Lizetl OVEN LOADER Active CLARITIN 10 MG TAB 1 tablet by mouth daily as needed for allergies LORATADINE 89738811014 Active Jillina Onelzell OVEN LOADER Active PREDNISONE 20 MG TAB 2 tabs daily for 3 days, 1 tab daily for 3 days, 1/2 tab daily for 2 days PREDNISONE 83098367653 Active Jillina Frazell OVEN LOADER Active AZITHROMYCIN 250 MG TABS 2 po qd x 1 day, then 1 po qd x 4 days AZITHROMYCIN 12195647937 No Longer Active Jillina Onelzell OVEN LOADER Active FLONASE 50 MCG/ACT SUSP 1 spray each nostril twice daily for allergies and runny nose FLUTICASONE PROPIONATE 77174279700 No Longer Active Jillina Frazell OVEN LOADER Active CEFTIN 500 MG TAB 1 twice a day CEFUROXIME AXETIL 88405339318 No Longer Active Jillina Frazell OVEN LOADER Active PREDNISONE 20 MG TAB 2 tablets today, then 1 tablet days 2 and 3 PREDNISONE 96596692197 No Longer Active Jillina Frazell OVEN LOADER Active TYLENOL WITH CODEINE #3 300-30 MG TABS 1 pill by mouth up to every 6 hours if needed for pain ACETAMINOPHEN-CODEINE 74844397765 No Longer Active Carter Blanco DO Active FLONASE 50 MCG/ACT SUSP 1 spray each nostril am and hs FLUTICASONE PROPIONATE 00339874425 No Longer Active Carter Blanco DO Active PREDNISONE 20 MG TAB 2 tablets today, then 1 tablet days 2 and 3 PREDNISONE 02425278351 No Longer Active Steffany Lynch MD PhD Active ZITHROMAX 250 MG TAB 2 po today, then 1 po q days 2-5 AZITHROMYCIN 24876213057 No Longer Active Julián Sue MD Active FLONASE 50 MCG/ACT SUSP 1 puff in each nostril twice daily 12/30 FLUTICASONE PROPIONATE 78059358890 No Longer Active Elle Giang APRN Active AMOXICILLIN 875 MG TABS 1 bid AMOXICILLIN 77177032905 No Longer Active Elle Giang APRN Active AMOXICILLIN 875 MG TABS 1 bid AMOXICILLIN 875 MG TABS 647492 AMOXICILLIN Inactive FLONASE 50 MCG/ACT SUSP 1 puff in each nostril twice daily 12/30 FLONASE 50 MCG/ACT SUSP FLUTICASONE PROPIONATE Inactive PREDNISONE 20 MG TAB 2 tablets today, then 1 tablet days 2 and 3 PREDNISONE 20 MG TAB 908077 PREDNISONE Inactive FLONASE 50 MCG/ACT SUSP 1 spray each nostril am and hs FLONASE 50 MCG/ACT SUSP FLUTICASONE PROPIONATE Inactive TYLENOL WITH CODEINE #3 300-30 MG TABS 1 pill by mouth up to every 6 hours if needed for pain TYLENOL WITH CODEINE #3 300-30 MG TABS 213106 ACETAMINOPHEN-CODEINE Inactive PREDNISONE 20 MG TAB 2 tablets today, then 1 tablet days 2 and 3 PREDNISONE 20 MG TAB 087582 PREDNISONE Inactive CEFTIN 500 MG TAB 1 twice a day CEFTIN 500 MG TAB 384230 CEFUROXIME AXETIL Inactive FLONASE 50 MCG/ACT SUSP 1 spray each nostril twice daily for allergies and runny nose FLONASE 50 MCG/ACT SUSP FLUTICASONE PROPIONATE Inactive ZITHROMAX 250 MG TAB 2 po today, then 1 po q days 2-5 ZITHROMAX 250 MG TAB 0884990 AZITHROMYCIN Inactive AZITHROMYCIN 250 MG TABS 2 po qd x 1 day, then 1 po qd x 4 days AZITHROMYCIN 250 MG TABS 5123483 AZITHROMYCIN Inactive Immunizations Vaccine Administration Date Value Standard Description Adacel (Tetanus, reduced Diphtheria, and acellular Pertussis Immunization) Adacel [XHX556] tetanus toxoid, reduced diphtheria toxoid, and acellular [...] Negative Encounters Code Encounter Date Provider Facility CPT-56713 Level 3 Est. Patient 13:56:53 MANAGEMENT ACCOUNTS MANAGER Wilberto Escobar [facility]-24090 Level 3 Est. Patient 09:50:19 MANAGEMENT ACCOUNTS MANAGER Wilberto Escobar [facility]-37958 Level 3 Est. Patient 18:01:13 CDT Carter Blanco [facility] CPT-05358 Level 2 Est. Patient 15:48:46 CDT Steffany Lynch MD [facility]-34834 Level 2 Est. Patient 13:26:32 CDT Steffany Lynch MD [facility] CPT-18107 Level 3 Est. Patient 10:13:02 CDT Steffany Lynch MD [facility]-06000 Level 2 New Patient 14:45:33 CDT Steffany Lynch MD [facility] CPT-93029 Level 3 Est. Patient 16:57:05 MANAGEMENT ACCOUNTS MANAGER Carter Blanco [facility]-23663 Level 3 Est. Patient 09:58:27 CDT Julián Sue MD [facility] CPT-75744 Level 3 Est. Patient 10:17:17 MANAGEMENT ACCOUNTS MANAGER Carter Blanco DO [facility] CPT-56836 Level 3 Est. Patient 10:42:29 MANAGEMENT ACCOUNTS MANAGER Elle Giang APRN [facility] CPT-44391 Level 3 Est. Patient 10:00:26 CDT Susan Mckinnon MD [facility] CPT-66785 Level 3 Est. Patient 15:14:48 CDT Susan Mckinnon MD [facility] Procedures Code Procedure Name Date Entry Date Standard Description CPT-A4570 Splint 15:14:48 CDT CPT-14904 Ankle Complete - Min 3V 14:40:31 CDT
--- OUTSIDE RECORDS SUMMARY | 2018-04-04 06:30 | XMS REPORT | Clinical Summary ---
[...] Acute conjunctivitis, unspecified Sinusitis 473.9 Active Richard Motnano MD Unspecified sinusitis (chronic) Body Mass Index 31.0-31.9 Adult Active Richard Montano MD Body Mass Index 31.0-31.9, adult Body Mass Index Percentile Pediatric greater than or equal to 95th percentile for age Active Richard Montano MD Body Mass Index, pediatric, greater than or equal to 95th percentile for age Other obesity due to excess calories 278.00 Active Richard Montano MD Obesity, unspecified Sinusitis-Acute ICD-461.9 Inactive Susan Mckinnon MD Abdominal [...] mild bronchospasm ICD-466.0 Inactive Katelyn Contreras MA ANKLE PAIN, RIGHT ICD-719.47 Inactive Steffany Lynch MD PhD Medication List Medication Instructions Start Date Stop Date Generic Name NDC Status Provider Patient Instruction AMOXICILLIN 500 MG TABS Take two tablets by mouth every 12 hours for 10 days AMOXICILLIN 51245506723 Active Richard Montano MD Active POLYTRIM 33766-0.1 UNIT/ML-% OPHTHALMIC SOLUTION 1 drop in the left eye four times a day for 5 days POLYMYXIN B-TRIMETHOPRIM 49080135094 Active Richard Montano MD Active ZITHROMAX Z-YOSEF 250 MG ORAL TABLET 2 today and then 1 daily for 4 days 01/02 AZITHROMYCIN 93143579688 No Longer Active Katelyn Contreras MA Active CHERATUSSIN AC 100-10 MG/5ML ORAL SYRUP 1 tsp by mouth every 4 hours as needed for cough GUAIFENESIN-CODEINE 58975870179 No Longer Active Katelyn Contreras MA Active BACTRIM DS 800-160 MG ORAL TABLET 1 tab by mouth twice daily 2015 TRIMETHOPRIM-SULFAMETHOXAZOLE 21526466212 No Longer Active Julián Sue MD Active CLARITIN 10 MG ORAL TABLET 1 tablet by mouth daily as needed for allergies LORATADINE 71282271798 No Longer Active Julián Sue MD Active FLUTICASONE PROPIONATE 50 MCG/ACT NASAL SUSPENSION 1 to 2 sprays each nostril daily FLUTICASONE PROPIONATE 76214859674 No Longer Active Julián Sue MD Active AUGMENTIN 875-125 MG ORAL TABLET 1 po BID x 10 days AMOXICILLIN-POT CLAVULANATE 13315425886 No Longer Active Wilberto Escobar APRN Active PREDNISONE 20 MG ORAL TABLET 2 tabs daily for 3 days, 1 tab daily for 3 days, 1/2 tab daily for 2 days PREDNISONE 66406759840 No Longer Active Jillina Frazell DRESSMAKER [employer] TAILOR Active AZITHROMYCIN 250 MG ORAL TABLET 2 po qd x 1 day, then 1 po qd x 4 days 03/16 AZITHROMYCIN 80906580710 No Longer Active Jillina Frazell DRESSMAKER [employer] TAILOR Active FLONASE 50 MCG/ACT NASAL SUSPENSION 1 spray each nostril twice daily for allergies and runny nose FLUTICASONE PROPIONATE 21605812273 No Longer Active Jillina Frazell DRESSMAKER OR TAILOR Active CEFTIN 500 MG ORAL TABLET 1 twice a day CEFUROXIME AXETIL 54894188048 No Longer Active Jillina Frazell DRESSMAKER OR TAILOR Active PREDNISONE 20 MG ORAL TABLET 2 tablets today, then 1 tablet days 2 and 3 2014 PREDNISONE 96076245199 No Longer Active Jillina Frazell DRESSMAKER OR TAILOR Active TYLENOL WITH CODEINE #3 300-30 MG ORAL TABLET 1 pill by mouth up to every 6 hours if needed for pain ACETAMINOPHEN-CODEINE 91063276304 No Longer Active Carter Blanco DO Active FLONASE 50 MCG/ACT NASAL SUSPENSION 1 spray each nostril am and hs FLUTICASONE PROPIONATE 23651787482 No Longer Active Carter Blanco DO Active PREDNISONE 20 MG ORAL TABLET 2 tablets today, then 1 tablet days 2 and 3 2014 PREDNISONE 56201951624 No Longer Active Steffany Lynch MD PhD Active ZITHROMAX 250 MG ORAL TABLET 2 po today, then 1 po q days 2-5 AZITHROMYCIN 48887245471 No Longer Active Julián Sue MD Active FLONASE 50 MCG/ACT NASAL SUSPENSION 1 puff in each nostril twice daily 12/17 FLUTICASONE PROPIONATE 62006296251 No Longer Active Elle Giang APRN Active AMOXICILLIN 875 MG ORAL TABLET 1 bid AMOXICILLIN 99639216686 No Longer Active Elle Giang APRN Active AMOXICILLIN 875 MG ORAL TABLET 1 bid AMOXICILLIN 875 MG ORAL TABLET 919952 AMOXICILLIN Inactive FLONASE 50 MCG/ACT NASAL SUSPENSION 1 puff in each nostril twice daily 12/17 FLONASE 50 MCG/ACT NASAL SUSPENSION 1438202 FLUTICASONE PROPIONATE Inactive PREDNISONE 20 MG ORAL TABLET 2 tablets today, then 1 tablet days 2 and 3 2014 PREDNISONE 20 MG ORAL TABLET 797483 PREDNISONE Inactive FLONASE 50 MCG/ACT NASAL SUSPENSION 1 spray each nostril am and hs FLONASE 50 MCG/ACT NASAL SUSPENSION 1486585 FLUTICASONE PROPIONATE Inactive TYLENOL WITH CODEINE #3 300-30 MG ORAL TABLET 1 pill by mouth up to every 6 hours if needed for pain TYLENOL WITH CODEINE #3 300- 30 MG ORAL TABLET ACETAMINOPHEN-CODEINE Inactive PREDNISONE 20 MG ORAL TABLET 2 tablets today, then 1 tablet days 2 and 3 2014 PREDNISONE 20 MG ORAL TABLET 041934 PREDNISONE Inactive CEFTIN 500 MG ORAL TABLET 1 twice a day CEFTIN 500 MG ORAL TABLET CEFUROXIME AXETIL Inactive FLONASE 50 MCG/ACT NASAL SUSPENSION 1 spray each nostril twice daily for allergies and runny nose FLONASE 50 MCG/ACT NASAL SUSPENSION 9862026 FLUTICASONE PROPIONATE Inactive FLUTICASONE PROPIONATE 50 MCG/ACT NASAL SUSPENSION 1 to 2 sprays each nostril daily FLUTICASONE PROPIONATE 50 MCG/ACT NASAL SUSPENSION 4198681 FLUTICASONE PROPIONATE Inactive CLARITIN 10 MG ORAL TABLET 1 tablet by mouth daily as needed for allergies CLARITIN 10 MG ORAL TABLET 146845 LORATADINE Inactive CHERATUSSIN AC 100-10 MG/5ML ORAL SYRUP 1 tsp by mouth every 4 hours as needed for cough CHERATUSSIN AC 100-10 MG/5ML ORAL SYRUP 673131 GUAIFENESIN-CODEINE Inactive ZITHROMAX Z-YOSEF 250 MG ORAL TABLET 2 today and then 1 daily for 4 days 01/02 ZITHROMAX Z-YOSEF 250 MG ORAL TABLET 298392 AZITHROMYCIN Inactive ZITHROMAX 250 MG ORAL TABLET 2 po today, then 1 po q days 2-5 ZITHROMAX 250 MG ORAL TABLET 491981 AZITHROMYCIN Inactive AZITHROMYCIN 250 MG ORAL TABLET 2 po qd x 1 day, then 1 po qd x 4 days 03/16 AZITHROMYCIN 250 MG ORAL TABLET 210067 AZITHROMYCIN Inactive PREDNISONE 20 MG ORAL TABLET 2 tabs daily for 3 days, 1 tab daily for 3 days, 1/2 tab daily for 2 days PREDNISONE 20 MG ORAL TABLET 975907 PREDNISONE Inactive AUGMENTIN 875-125 MG ORAL TABLET 1 po BID x 10 days AUGMENTIN 875-125 MG ORAL TABLET 789712 AMOXICILLIN-POT CLAVULANATE Inactive BACTRIM DS 800-160 MG ORAL TABLET 1 tab by mouth twice daily 2015 BACTRIM DS 800-160 MG ORAL TABLET 319582 TRIMETHOPRIM- SULFAMETHOXAZOLE Inactive Immunizations Vaccine Administration Date Value Standard Description Adacel (Tetanus, reduced Diphtheria, and acellular Pertussis Immunization) Adacel [STV362] tetanus toxoid, reduced diphtheria toxoid, and acellular [...] Measured Encounters Code Encounter Date Provider Facility CPT-79168 [id number] Vst-Est Level III 11:10:44 CDT Richard Montano MD [facility]-01219 Level 3 Est. Patient 14:06:42 DIRECTOR PAYER Anastasia Martino [facility]-81468 Level 3 Est. Patient 12:30:51 CDT Julián Sue MD [facility]-73765 Level 3 Est. Patient 13:56:53 DIRECTOR PAYER Wilberto Escobar [facility]-64084 Level 3 Est. Patient 09:50:19 DIRECTOR PAYER Wilberto Escobar [facility]-69955 Level 3 Est. Patient 18:01:13 CDT Carter Blanco [facility] CPT-20046 Level 2 Est. Patient 15:48:46 CDT Steffany Lynch MD [facility] CPT-59424 Level 2 Est. Patient 13:26:32 CDT Steffany Lynch MD [facility] CPT-41180 Level 3 Est. Patient 10:13:02 CDT Steffany Lynch MD [facility] CPT-02147 Level 2 New Patient 14:45:33 CDT Steffany Lynch MD [facility] CPT-11294 Level 3 Est. Patient 16:57:05 DIRECTOR PAYER Carter Blanco [facility] CPT-03855 Level 3 Est. Patient 09:58:27 CDT Julián Sue MD [facility] CPT-08398 Level 3 Est. Patient 10:17:17 DIRECTOR PAYER Carter Blanco [facility] CPT-33405 Level 3 Est. Patient 10:42:29 DIRECTOR PAYER Elle Giang APRN [facility] CPT-54598 Level 3 Est. Patient 10:00:26 CDT Susan Mckinnon MD [facility] CPT-20037 Level 3 Est. Patient 15:14:48 CDT Susan Mckinnon MD [facility] Procedures Code Procedure Name Date Entry Date Standard Description CPT-A4570 Splint 15:14:48 CDT CPT-49261 Ankle Complete - Min 3V 14:40:31 CDT
--- OUTSIDE RECORDS SUMMARY | 2018-04-04 06:30 | XMS REPORT | Clinical Summary ---
Author Author Admin, OBDULIO Organization [facility] Address Unknown Phone Unavailable Allergies, [...] Steffany Lynch MD PhD Pharyngitis-Acute ICD-462 Inactive Stefafny Lynch MD PhD Concussion with no loss [...] every 12 hours for 10 days AMOXICILLIN 34159978541 Active Richard Montano MD Active POLYTRIM 07182-3.1 UNIT/ML-% OPHTHALMIC SOLUTION 1 drop in the left eye four times a day for 5 days POLYMYXIN B-TRIMETHOPRIM 78243143715 Active Richard Montano MD Active ZITHROMAX Z-YOSEF 250 MG ORAL TABLET 2 today and then 1 daily for 4 days 01/02 AZITHROMYCIN 87669520578 No Longer Active Katelyn Hamiltonanil VERGARA Active CHERATUSSIN AC 100-10 MG/5ML ORAL SYRUP 1 tsp by mouth every 4 hours as needed for cough GUAIFENESIN-CODEINE 35044061084 No Longer Active Katelyn Hamiltonanil VERGARA Active BACTRIM DS 800-160 MG ORAL TABLET 1 tab by mouth twice daily 2015 TRIMETHOPRIM-SULFAMETHOXAZOLE 07828730838 No Longer Active Julián Sue MD Active CLARITIN 10 MG ORAL TABLET 1 tablet by mouth daily as needed for allergies LORATADINE 88955261142 No Longer Active Julián Sue MD Active FLUTICASONE PROPIONATE 50 MCG/ACT NASAL SUSPENSION 1 to 2 sprays each nostril daily FLUTICASONE PROPIONATE 24452737253 No Longer Active Julián Sue MD Active AUGMENTIN 875-125 MG ORAL TABLET 1 po BID x 10 days AMOXICILLIN-POT CLAVULANATE 24379267702 No Longer Active Wilberto Escobar APRN Active PREDNISONE 20 MG ORAL TABLET 2 tabs daily for 3 days, 1 tab daily for 3 days, 1/2 tab daily for 2 days PREDNISONE 10304811503 No Longer Active Jillina Frazell SECURITY SALES CONSULTANT Active AZITHROMYCIN 250 MG ORAL TABLET 2 po qd x 1 day, then 1 po qd x 4 days 03/16 AZITHROMYCIN 41656624973 No Longer Active Jillina Frazell SECURITY SALES CONSULTANT Active FLONASE 50 MCG/ACT NASAL SUSPENSION 1 spray each nostril twice daily for allergies and runny nose FLUTICASONE PROPIONATE 04505479021 No Longer Active Jillina Frazell SECURITY SALES CONSULTANT Active CEFTIN 500 MG ORAL TABLET 1 twice a day CEFUROXIME AXETIL 20756973109 No Longer Active Jillina Frazell SECURITY SALES CONSULTANT Active PREDNISONE 20 MG ORAL TABLET 2 tablets today, then 1 tablet days 2 and 3 2014 PREDNISONE 04447317892 No Longer Active Jillina Frazell SECURITY SALES CONSULTANT Active TYLENOL WITH CODEINE #3 300-30 MG ORAL TABLET 1 pill by mouth up to every 6 hours if needed for pain ACETAMINOPHEN-CODEINE 09508690417 No Longer Active Carter Blanco DO Active FLONASE 50 MCG/ACT NASAL SUSPENSION 1 spray each nostril am and hs FLUTICASONE PROPIONATE 05368002115 No Longer Active Carter Blanco DO Active PREDNISONE 20 MG ORAL TABLET 2 tablets today, then 1 tablet days 2 and 3 2014 PREDNISONE 22405767971 No Longer Active Steffany Lynch MD PhD Active ZITHROMAX 250 MG ORAL TABLET 2 po today, then 1 po q days 2-5 AZITHROMYCIN 29605571126 No Longer Active Julián Sue MD Active FLONASE 50 MCG/ACT NASAL SUSPENSION 1 puff in each nostril twice daily 12/17 FLUTICASONE PROPIONATE 58901096416 No Longer Active Elle Giang APRN Active AMOXICILLIN 875 MG ORAL TABLET 1 bid AMOXICILLIN 29882170115 No Longer Active Elle Giang APRN Active AMOXICILLIN 875 MG ORAL TABLET 1 bid AMOXICILLIN 875 MG ORAL TABLET 191479 AMOXICILLIN Inactive FLONASE 50 MCG/ACT NASAL SUSPENSION 1 puff in each nostril twice daily 12/17 FLONASE 50 MCG/ACT NASAL SUSPENSION 8891185 FLUTICASONE PROPIONATE Inactive PREDNISONE 20 MG ORAL TABLET 2 tablets today, then 1 tablet days 2 and 3 2014 PREDNISONE 20 MG ORAL TABLET 798974 PREDNISONE Inactive FLONASE 50 MCG/ACT NASAL SUSPENSION 1 spray each nostril am and hs FLONASE 50 MCG/ACT NASAL SUSPENSION 0285627 FLUTICASONE PROPIONATE Inactive TYLENOL WITH CODEINE #3 300-30 MG ORAL TABLET 1 pill by mouth up to every 6 hours if needed for pain TYLENOL WITH CODEINE #3 300- 30 MG ORAL TABLET ACETAMINOPHEN-CODEINE Inactive PREDNISONE 20 MG ORAL TABLET 2 tablets today, then 1 tablet days 2 and 3 2014 PREDNISONE 20 MG ORAL TABLET 843346 PREDNISONE Inactive CEFTIN 500 MG ORAL TABLET 1 twice a day CEFTIN 500 MG ORAL TABLET CEFUROXIME AXETIL Inactive FLONASE 50 MCG/ACT NASAL SUSPENSION 1 spray each nostril twice daily for allergies and runny nose FLONASE 50 MCG/ACT NASAL SUSPENSION 3337477 FLUTICASONE PROPIONATE Inactive FLUTICASONE PROPIONATE 50 MCG/ACT NASAL SUSPENSION 1 to 2 sprays each nostril daily FLUTICASONE PROPIONATE 50 MCG/ACT NASAL SUSPENSION 4706254 FLUTICASONE PROPIONATE Inactive CLARITIN 10 MG ORAL TABLET 1 tablet by mouth daily as needed for allergies CLARITIN 10 MG ORAL TABLET 004073 LORATADINE Inactive CHERATUSSIN AC 100-10 MG/5ML ORAL SYRUP 1 tsp by mouth every 4 hours as needed for cough CHERATUSSIN AC 100-10 MG/5ML ORAL SYRUP 102700 GUAIFENESIN-CODEINE Inactive ZITHROMAX Z-YOSEF 250 MG ORAL TABLET 2 today and then 1 daily for 4 days 01/02 ZITHROMAX Z-YOSEF 250 MG ORAL TABLET 419940 AZITHROMYCIN Inactive ZITHROMAX 250 MG ORAL TABLET 2 po today, then 1 po q days 2-5 ZITHROMAX 250 MG ORAL TABLET 294798 AZITHROMYCIN Inactive AZITHROMYCIN 250 MG ORAL TABLET 2 po qd x 1 day, then 1 po qd x 4 days 03/16 AZITHROMYCIN 250 MG ORAL TABLET 987158 AZITHROMYCIN Inactive PREDNISONE 20 MG ORAL TABLET 2 tabs daily for 3 days, 1 tab daily for 3 days, 1/2 tab daily for 2 days PREDNISONE 20 MG ORAL TABLET 333988 PREDNISONE Inactive AUGMENTIN 875-125 MG ORAL TABLET 1 po BID x 10 days AUGMENTIN 875-125 MG ORAL TABLET 153439 AMOXICILLIN-POT CLAVULANATE Inactive BACTRIM DS 800-160 MG ORAL TABLET 1 tab by mouth twice daily 2015 BACTRIM DS 800-160 MG ORAL TABLET 023528 TRIMETHOPRIM- SULFAMETHOXAZOLE Inactive Immunizations Vaccine Administration Date Value Standard Description Adacel (Tetanus, reduced Diphtheria, and acellular Pertussis Immunization) Adacel [OYP334] tetanus toxoid, reduced diphtheria toxoid, and acellular [...] Measured Encounters Code Encounter Date Provider Facility CPT-25699 [id number] Vst-Est Level III 11:10:44 CDT Richard Montano MD [facility]-76074 Level 3 Est. Patient 14:06:42 VULCANIZING PRESS OPERATOR Anastasia Martino [facility]-40787 Level 3 Est. Patient 12:30:51 CDT Julián Sue MD [facility]-03661 Level 3 Est. Patient 13:56:53 VULCANIZING PRESS OPERATOR Wilberto Escobar [facility]-22627 Level 3 Est. Patient 09:50:19 VULCANIZING PRESS OPERATOR Wilberto Escobar [facility]-75262 Level 3 Est. Patient 18:01:13 CDT Carter Blanco [facility] CPT-41335 Level 2 Est. Patient 15:48:46 CDT Steffany Lynch MD [facility] CPT-42492 Level 2 Est. Patient 13:26:32 CDT Steffany Lynch MD [facility] CPT-82546 Level 3 Est. Patient 10:13:02 CDT Steffany Lynch MD [facility] CPT-51093 Level 2 New Patient 14:45:33 CDT Steffany Lynch MD [facility] CPT-64334 Level 3 Est. Patient 16:57:05 VULCANIZING PRESS OPERATOR Carter Blanco [facility] CPT-92930 Level 3 Est. Patient 09:58:27 CDT Julián Sue MD [facility] CPT-31119 Level 3 Est. Patient 10:17:17 VULCANIZING PRESS OPERATOR Carter Blanco [facility] CPT-27978 Level 3 Est. Patient 10:42:29 VULCANIZING PRESS OPERATOR Elle Giang APRN [facility] CPT-46222 Level 3 Est. Patient 10:00:26 CDT Susan Mckinnon MD [facility] CPT-26087 Level 3 Est. Patient 15:14:48 CDT Susan Mckinnon MD [facility] Procedures Code Procedure Name Date Entry Date Standard Description CPT-A4570 Splint 15:14:48 CDT CPT-70893 Ankle Complete - Min 3V 14:40:31 CDT
--- OUTSIDE RECORDS SUMMARY | 2018-04-04 06:31 | XMS REPORT | Clinical Summary ---
Author Author Admin, OBDULIO Corley [facility] Address Unknown Phone Unavailable Allergies, Adverse Reactions, Alerts Allergy Name Reaction Description Start Date Severity Status Provider No Known Allergies Katelyn Contreras LPN Conditions or Problems Problem Name Problem Code [...] Sinusitis, maxillary, acute 461.0 Resolved Katelyn Contreras LPN Acute maxillary sinusitis Bronchitis 490 Resolved Katelyn Contreras LPN Bronchitis , not specified as acute or chronic Pharyngitis 462 Resolved Katelyn Contreras LPN Acute pharyngitis Bronchitis, acute with mild bronchospasm 466.0 Resolved Katelyn Contreras LPN Acute bronchitis Conjunctivitis, acute, left 372.00 Active [...] Sinusitis, maxillary, acute ICD-461.0 Inactive Katelyn Contreras LPN Bronchitis ICD-490 Inactive Katelyn Contreras LPN Pharyngitis ICD-462 Inactive Katelyn Contreras LPN Bronchitis, acute with mild bronchospasm ICD-466.0 Inactive Katelyn Contreras LPN Medication List Medication Instructions Start Date Stop Date Generic Name NDC Status Provider Patient Instruction AMOXICILLIN 500 MG TABS Take two tablets by mouth every 12 hours for 10 days AMOXICILLIN 24333565157 Active Richard Montano MD Active POLYTRIM 83185-7.1 UNIT/ML-% OPHTHALMIC SOLUTION 1 drop in the left eye four times a day for 5 days POLYMYXIN B-TRIMETHOPRIM 78397766493 Active Richard Montano MD Active ZITHROMAX Z-YOSEF 250 MG ORAL TABLET 2 today and then 1 daily for 4 days 01/02 AZITHROMYCIN 08809049473 No Longer Active Katelyn Contreras BRUSH HOLDER ASSEMBLER Active CHERATUSSIN AC 100-10 MG/5ML ORAL SYRUP 1 tsp by mouth every 4 hours as needed for cough GUAIFENESIN-CODEINE 41743252481 No Longer Active Katelyn Ben GIFFORD Active BACTRIM DS 800-160 MG ORAL TABLET 1 tab by mouth twice daily 2015 TRIMETHOPRIM-SULFAMETHOXAZOLE 71541394773 No Longer Active Julián Sue MD Active CLARITIN 10 MG ORAL TABLET 1 tablet by mouth daily as needed for allergies LORATADINE 54604144007 No Longer Active Julián Sue MD Active FLUTICASONE PROPIONATE 50 MCG/ACT NASAL SUSPENSION 1 to 2 sprays each nostril daily FLUTICASONE PROPIONATE 54051807303 No Longer Active Julián Sue MD Active AUGMENTIN 875-125 MG ORAL TABLET 1 po BID x 10 days AMOXICILLIN-POT CLAVULANATE 41478823002 No Longer Active Wilberto Escobar APRN Active PREDNISONE 20 MG ORAL TABLET 2 tabs daily for 3 days, 1 tab daily for 3 days, 1/2 tab daily for 2 days PREDNISONE 33742204090 No Longer Active Jillina Frazell DENSITOMETER READER Active AZITHROMYCIN 250 MG ORAL TABLET 2 po qd x 1 day, then 1 po qd x 4 days 03/16 AZITHROMYCIN 55611526678 No Longer Active Jillina Frazell DENSITOMETER READER Active FLONASE 50 MCG/ACT NASAL SUSPENSION 1 spray each nostril twice daily for allergies and runny nose FLUTICASONE PROPIONATE 13959276152 No Longer Active Jillina Frazell DENSITOMETER READER Active CEFTIN 500 MG ORAL TABLET 1 twice a day CEFUROXIME AXETIL 25226881810 No Longer Active Jillina Frazell DENSITOMETER READER Active PREDNISONE 20 MG ORAL TABLET 2 tablets today, then 1 tablet days 2 and 3 2014 PREDNISONE 64228791561 No Longer Active Jillina Frazell DENSITOMETER READER Active TYLENOL WITH CODEINE #3 300-30 MG ORAL TABLET 1 pill by mouth up to every 6 hours if needed for pain ACETAMINOPHEN-CODEINE 37880043058 No Longer Active Carter Blanco DO Active FLONASE 50 MCG/ACT NASAL SUSPENSION 1 spray each nostril am and hs FLUTICASONE PROPIONATE 05304682851 No Longer Active Carter Blanco DO Active PREDNISONE 20 MG ORAL TABLET 2 tablets today, then 1 tablet days 2 and 3 2014 PREDNISONE 05861443744 No Longer Active Steffany Lynch MD PhD Active ZITHROMAX 250 MG ORAL TABLET 2 po today, then 1 po q days 2-5 AZITHROMYCIN 08496882034 No Longer Active Julián Sue MD Active FLONASE 50 MCG/ACT NASAL SUSPENSION 1 puff in each nostril twice daily 12/17 FLUTICASONE PROPIONATE 44902170924 No Longer Active Elle Giang APRN Active AMOXICILLIN 875 MG ORAL TABLET 1 bid AMOXICILLIN 53029626036 No Longer Active Elle Giang APRN Active AMOXICILLIN 875 MG ORAL TABLET 1 bid AMOXICILLIN 875 MG ORAL TABLET 745294 AMOXICILLIN Inactive FLONASE 50 MCG/ACT NASAL SUSPENSION 1 puff in each nostril twice daily 12/17 FLONASE 50 MCG/ACT NASAL SUSPENSION 9177679 FLUTICASONE PROPIONATE Inactive PREDNISONE 20 MG ORAL TABLET 2 tablets today, then 1 tablet days 2 and 3 2014 PREDNISONE 20 MG ORAL TABLET 562301 PREDNISONE Inactive FLONASE 50 MCG/ACT NASAL SUSPENSION 1 spray each nostril am and hs FLONASE 50 MCG/ACT NASAL SUSPENSION 3970257 FLUTICASONE PROPIONATE Inactive TYLENOL WITH CODEINE #3 300-30 MG ORAL TABLET 1 pill by mouth up to every 6 hours if needed for pain TYLENOL WITH CODEINE #3 300- 30 MG ORAL TABLET ACETAMINOPHEN-CODEINE Inactive PREDNISONE 20 MG ORAL TABLET 2 tablets today, then 1 tablet days 2 and 3 2014 PREDNISONE 20 MG ORAL TABLET 577811 PREDNISONE Inactive CEFTIN 500 MG ORAL TABLET 1 twice a day CEFTIN 500 MG ORAL TABLET CEFUROXIME AXETIL Inactive FLONASE 50 MCG/ACT NASAL SUSPENSION 1 spray each nostril twice daily for allergies and runny nose FLONASE 50 MCG/ACT NASAL SUSPENSION 3231164 FLUTICASONE PROPIONATE Inactive FLUTICASONE PROPIONATE 50 MCG/ACT NASAL SUSPENSION 1 to 2 sprays each nostril daily FLUTICASONE PROPIONATE 50 MCG/ACT NASAL SUSPENSION 0816908 FLUTICASONE PROPIONATE Inactive CLARITIN 10 MG ORAL TABLET 1 tablet by mouth daily as needed for allergies CLARITIN 10 MG ORAL TABLET 686729 LORATADINE Inactive CHERATUSSIN AC 100-10 MG/5ML ORAL SYRUP 1 tsp by mouth every 4 hours as needed for cough CHERATUSSIN AC 100-10 MG/5ML ORAL SYRUP 676822 GUAIFENESIN-CODEINE Inactive ZITHROMAX Z-YOSEF 250 MG ORAL TABLET 2 today and then 1 daily for 4 days 01/02 ZITHROMAX Z-YOSEF 250 MG ORAL TABLET 209447 AZITHROMYCIN Inactive ZITHROMAX 250 MG ORAL TABLET 2 po today, then 1 po q days 2-5 ZITHROMAX 250 MG ORAL TABLET 263677 AZITHROMYCIN Inactive AZITHROMYCIN 250 MG ORAL TABLET 2 po qd x 1 day, then 1 po qd x 4 days 03/16 AZITHROMYCIN 250 MG ORAL TABLET 742217 AZITHROMYCIN Inactive PREDNISONE 20 MG ORAL TABLET 2 tabs daily for 3 days, 1 tab daily for 3 days, 1/2 tab daily for 2 days PREDNISONE 20 MG ORAL TABLET 914620 PREDNISONE Inactive AUGMENTIN 875-125 MG ORAL TABLET 1 po BID x 10 days AUGMENTIN 875-125 MG ORAL TABLET 546703 AMOXICILLIN-POT CLAVULANATE Inactive BACTRIM DS 800-160 MG ORAL TABLET 1 tab by mouth twice daily 2015 BACTRIM DS 800-160 MG ORAL TABLET 356525 TRIMETHOPRIM- SULFAMETHOXAZOLE Inactive Immunizations Vaccine Administration Date Value Standard Description Adacel (Tetanus, reduced Diphtheria, and acellular Pertussis Immunization) Adacel [[id number]] tetanus toxoid, reduced diphtheria toxoid, and acellular [...] Measured Encounters Code Encounter Date Provider Facility CPT-70520 [id number] Vst-Est Level III 11:10:44 CDT Richard Montano MD [facility] CPT-89851 Level 3 Est. Patient 14:06:42 EMERGENCY VETERINARIAN Anastasia Martino [facility]-86656 Level 3 Est. Patient 12:30:51 CDT Julián Sue MD [facility]-10187 Level 3 Est. Patient 13:56:53 EMERGENCY VETERINARIAN Wilberto Escobar [facility] CPT-99967 Level 3 Est. Patient 09:50:19 EMERGENCY VETERINARIAN Wilberto Escobar DENSITOMETER READER [facility] CPT-90093 Level 3 Est. Patient 18:01:13 CDT Carter Blanco [facility] CPT-16783 Level 2 Est. Patient 15:48:46 CDT Steffany Lynch MD [facility] CPT-45619 Level 2 Est. Patient 13:26:32 CDT Steffany Lynch MD [facility] CPT-44312 Level 3 Est. Patient 10:13:02 CDT Steffany Lynch MD [facility] CPT-30283 Level 2 New Patient 14:45:33 CDT Steffany Lynch MD [facility] CPT-45444 Level 3 Est. Patient 16:57:05 EMERGENCY VETERINARIAN Carter Blanco [facility] CPT-27071 Level 3 Est. Patient 09:58:27 CDT Julián Sue MD [facility] CPT-78980 Level 3 Est. Patient 10:17:17 EMERGENCY VETERINARIAN Carter Blanco [facility] CPT-73014 Level 3 Est. Patient 10:42:29 EMERGENCY VETERINARIAN Elle Giang APRN [facility] CPT-40806 Level 3 Est. Patient 10:00:26 CDT Susan Mckinnon MD [facility] CPT-79481 Level 3 Est. Patient 15:14:48 CDT Susan Mckinnon MD [facility] Procedures Code Procedure Name Date Entry Date Standard Description CPT-A4570 Splint 15:14:48 CDT CPT-50821 Ankle Complete - Min 3V 14:40:31 CDT
--- OUTSIDE RECORDS SUMMARY | 2018-04-04 06:31 | XMS REPORT | Clinical Summary ---
Author Author Admin, OBDULIO Organization [facility] Address Unknown Phone Unavailable Allergies, Adverse Reactions, [...] Contreras LPN Bronchitis ICD-490 Inactive Katelyn Contreras SIDE STITCHING MACHINE OPERATOR Pharyngitis ICD-462 Inactive Katelyn Contreras LPN Bronchitis, acute with mild bronchospasm ICD-466.0 Inactive Katelyn Contreras LPN Medication List Medication Instructions Start Date Stop Date Generic Name NDC Status Provider Patient Instruction AMOXICILLIN 500 MG TABS Take two tablets by mouth every 12 hours for 10 days AMOXICILLIN 37217010006 Active Richard Montano MD Active POLYTRIM 10396-2.1 UNIT/ML-% OPHTHALMIC SOLUTION 1 drop in the left eye four times a day for 5 days POLYMYXIN B-TRIMETHOPRIM 16040542835 Active Richard Montano MD Active ZITHROMAX Z-YOSEF 250 MG ORAL TABLET 2 today and then 1 daily for 4 days 01/02 AZITHROMYCIN 58452869655 No Longer Active Katelyn Contreras SIDE STITCHING MACHINE OPERATOR Active CHERATUSSIN AC 100-10 MG/5ML ORAL SYRUP 1 tsp by mouth every 4 hours as needed for cough GUAIFENESIN-CODEINE 82526190289 No Longer Active Katelyn Hamiltonanil [place] Active BACTRIM DS 800-160 MG ORAL TABLET 1 tab by mouth twice daily 2015 TRIMETHOPRIM-SULFAMETHOXAZOLE 70680721538 No Longer Active Julián Sue MD Active CLARITIN 10 MG ORAL TABLET 1 tablet by mouth daily as needed for allergies LORATADINE 98787940925 No Longer Active Julián Sue MD Active FLUTICASONE PROPIONATE 50 MCG/ACT NASAL SUSPENSION 1 to 2 sprays each nostril daily FLUTICASONE PROPIONATE 92759012072 No Longer Active Julián Sue MD Active AUGMENTIN 875-125 MG ORAL TABLET 1 po BID x 10 days AMOXICILLIN-POT CLAVULANATE 55285813518 No Longer Active Jillina Frazell ADVERTISING VICE PRESIDENT Active PREDNISONE 20 MG ORAL TABLET 2 tabs daily for 3 days, 1 tab daily for 3 days, 1/2 tab daily for 2 days PREDNISONE 06391593986 No Longer Active Jillina Frazell ADVERTISING VICE PRESIDENT Active AZITHROMYCIN 250 MG ORAL TABLET 2 po qd x 1 day, then 1 po qd x 4 days 03/16 AZITHROMYCIN 72169021579 No Longer Active Jillina Frazell ADVERTISING VICE PRESIDENT Active FLONASE 50 MCG/ACT NASAL SUSPENSION 1 spray each nostril twice daily for allergies and runny nose FLUTICASONE PROPIONATE 64296557777 No Longer Active Jillina Frazell ADVERTISING VICE PRESIDENT Active CEFTIN 500 MG ORAL TABLET 1 twice a day CEFUROXIME AXETIL 17502916691 No Longer Active Jillina Frazell ADVERTISING VICE PRESIDENT Active PREDNISONE 20 MG ORAL TABLET 2 tablets today, then 1 tablet days 2 and 3 2014 PREDNISONE 88250197206 No Longer Active Jillina Lizetl ADVERTISING VICE PRESIDENT Active TYLENOL WITH CODEINE #3 300-30 MG ORAL TABLET 1 pill by mouth up to every 6 hours if needed for pain ACETAMINOPHEN-CODEINE 29263499240 No Longer Active Carter Blanco DO Active FLONASE 50 MCG/ACT NASAL SUSPENSION 1 spray each nostril am and hs FLUTICASONE PROPIONATE 88006691964 No Longer Active Carter Blanco DO Active PREDNISONE 20 MG ORAL TABLET 2 tablets today, then 1 tablet days 2 and 3 2014 PREDNISONE 63495605412 No Longer Active Steffany Lynch MD PhD Active ZITHROMAX 250 MG ORAL TABLET 2 po today, then 1 po q days 2-5 AZITHROMYCIN 14408340548 No Longer Active Julián Sue MD Active FLONASE 50 MCG/ACT NASAL SUSPENSION 1 puff in each nostril twice daily 12/17 FLUTICASONE PROPIONATE 93296140426 No Longer Active Elle Giang APRN Active AMOXICILLIN 875 MG ORAL TABLET 1 bid AMOXICILLIN 02134665229 No Longer Active Elle Giang APRN Active AMOXICILLIN 875 MG ORAL TABLET 1 bid AMOXICILLIN 875 MG ORAL TABLET 309271 AMOXICILLIN Inactive FLONASE 50 MCG/ACT NASAL SUSPENSION 1 puff in each nostril twice daily 12/17 FLONASE 50 MCG/ACT NASAL SUSPENSION 8791135 FLUTICASONE PROPIONATE Inactive PREDNISONE 20 MG ORAL TABLET 2 tablets today, then 1 tablet days 2 and 3 2014 PREDNISONE 20 MG ORAL TABLET 959833 PREDNISONE Inactive FLONASE 50 MCG/ACT NASAL SUSPENSION 1 spray each nostril am and hs FLONASE 50 MCG/ACT NASAL SUSPENSION 6974154 FLUTICASONE PROPIONATE Inactive TYLENOL WITH CODEINE #3 300-30 MG ORAL TABLET 1 pill by mouth up to every 6 hours if needed for pain TYLENOL WITH CODEINE #3 300- 30 MG ORAL TABLET ACETAMINOPHEN-CODEINE Inactive PREDNISONE 20 MG ORAL TABLET 2 tablets today, then 1 tablet days 2 and 3 2014 PREDNISONE 20 MG ORAL TABLET 166939 PREDNISONE Inactive CEFTIN 500 MG ORAL TABLET 1 twice a day CEFTIN 500 MG ORAL TABLET CEFUROXIME AXETIL Inactive FLONASE 50 MCG/ACT NASAL SUSPENSION 1 spray each nostril twice daily for allergies and runny nose FLONASE 50 MCG/ACT NASAL SUSPENSION 5976396 FLUTICASONE PROPIONATE Inactive FLUTICASONE PROPIONATE 50 MCG/ACT NASAL SUSPENSION 1 to 2 sprays each nostril daily FLUTICASONE PROPIONATE 50 MCG/ACT NASAL SUSPENSION 4175412 FLUTICASONE PROPIONATE Inactive CLARITIN 10 MG ORAL TABLET 1 tablet by mouth daily as needed for allergies CLARITIN 10 MG ORAL TABLET 111639 LORATADINE Inactive CHERATUSSIN AC 100-10 MG/5ML ORAL SYRUP 1 tsp by mouth every 4 hours as needed for cough CHERATUSSIN AC 100-10 MG/5ML ORAL SYRUP 687938 GUAIFENESIN-CODEINE Inactive ZITHROMAX Z-YOSEF 250 MG ORAL TABLET 2 today and then 1 daily for 4 days 01/02 ZITHROMAX Z-YOSEF 250 MG ORAL TABLET 472720 AZITHROMYCIN Inactive ZITHROMAX 250 MG ORAL TABLET 2 po today, then 1 po q days 2-5 ZITHROMAX 250 MG ORAL TABLET 834882 AZITHROMYCIN Inactive AZITHROMYCIN 250 MG ORAL TABLET 2 po qd x 1 day, then 1 po qd x 4 days 03/16 AZITHROMYCIN 250 MG ORAL TABLET 027625 AZITHROMYCIN Inactive PREDNISONE 20 MG ORAL TABLET 2 tabs daily for 3 days, 1 tab daily for 3 days, 1/2 tab daily for 2 days PREDNISONE 20 MG ORAL TABLET 927355 PREDNISONE Inactive AUGMENTIN 875-125 MG ORAL TABLET 1 po BID x 10 days AUGMENTIN 875-125 MG ORAL TABLET 444085 AMOXICILLIN-POT CLAVULANATE Inactive BACTRIM DS 800-160 MG ORAL TABLET 1 tab by mouth twice daily 2015 BACTRIM DS 800-160 MG ORAL TABLET 073024 TRIMETHOPRIM- SULFAMETHOXAZOLE Inactive Immunizations Vaccine Administration Date Value Standard Description Adacel (Tetanus, reduced Diphtheria, and acellular Pertussis Immunization) Adacel [[id number]] tetanus toxoid, reduced diphtheria toxoid, and acellular [...] Measured Encounters Code Encounter Date Provider Facility CPT-58678 [id number] Vst-Est Level III 11:10:44 CDT Richard Montano MD [facility] CPT-51763 Level 3 Est. Patient 14:06:42 FAMILY DAY CARE WORKER Anastasia Martino [facility]-47295 Level 3 Est. Patient 12:30:51 CDT Julián Sue MD [facility]-63484 Level 3 Est. Patient 13:56:53 FAMILY DAY CARE WORKER Wilberto Escobar [facility]-13367 Level 3 Est. Patient 09:50:19 FAMILY DAY CARE WORKER Wilberto Escobar [facility]-95408 Level 3 Est. Patient 18:01:13 CDT Carter Blanco [facility] CPT-60110 Level 2 Est. Patient 15:48:46 CDT Steffany Lynch MD [facility] CPT-06048 Level 2 Est. Patient 13:26:32 CDT Steffany Lynch MD [facility] CPT-94077 Level 3 Est. Patient 10:13:02 CDT Steffany Lynch MD [facility] CPT-24706 Level 2 New Patient 14:45:33 CDT Steffany Lynch MD [facility] CPT-22139 Level 3 Est. Patient 16:57:05 FAMILY DAY CARE WORKER Carter Blanco [facility] CPT-12083 Level 3 Est. Patient 09:58:27 CDT Julián Sue MD [facility] CPT-24877 Level 3 Est. Patient 10:17:17 FAMILY DAY CARE WORKER Carter Blanco [facility] CPT-52980 Level 3 Est. Patient 10:42:29 FAMILY DAY CARE WORKER Elle Giang APRN [facility] CPT-36135 Level 3 Est. Patient 10:00:26 CDT Susan Mckinnon MD [facility] CPT-76705 Level 3 Est. Patient 15:14:48 CDT Susan Mckinnon MD [facility] Procedures Code Procedure Name Date Entry Date Standard Description CPT-A4570 Splint 15:14:48 CDT CPT-51053 Ankle Complete - Min 3V 14:40:31 CDT
--- OUTSIDE RECORDS SUMMARY | 2018-04-04 06:32 | XMS REPORT | Clinical Summary ---
Author Author Admin, OBDULIO Corley [facility] Address Unknown Phone Unavailable Allergies, Adverse Reactions, Alerts Allergy Name Reaction Description Start Date Severity Status Provider No Known Allergies Batool Garcia MA Conditions or Problems Problem Name Problem [...] Bronchitis, acute with mild bronchospasm 466.0 Resolved Katelynghassan Contreras LPN Acute bronchitis ANKLE PAIN, RIGHT ICD-719.47 Inactive Steffany Lynch MD PhD Sinusitis-Acute ICD-461.9 Inactive Susan Mckinnon MD Abdominal pain, right upper quadrant ICD-789.01 Inactive Steffany Lynch MD PhD Knee pain, right ICD-719.46 Inactive Steffany Lynch MD PhD SINUSITIS, ACUTE ICD-461.9 Inactive Julián Sue MD Nasal congestion ICD-478.19 Inactive Steffany Lynch MD PhD Pharyngitis-Acute ICD-462 Inactive Steffany Lynch MD PhD Sinusitis, maxillary, acute ICD-461.0 Inactive Katelyn Contreras LPN Bronchitis ICD-490 Inactive Katelyn Ben GIFFORD Pharyngitis ICD-462 Inactive Katelyn Contreras LPN Bronchitis, acute with mild bronchospasm ICD-466.0 Inactive Katelyn Ben GIFFORD Medication List Medication Instructions Start Date Stop Date Generic Name NDC Status Provider Patient Instruction ZITHROMAX Z-YOSEF 250 MG ORAL TABLET 2 today and then 1 daily for 4 days 01/02 AZITHROMYCIN 65702643197 No Longer Active Katelyn Contreras LPN Active CHERATUSSIN AC 100-10 MG/5ML ORAL SYRUP 1 tsp by mouth every 4 hours as needed for cough GUAIFENESIN-CODEINE 59611001159 No Longer Active Katelyn Contreras LPN Active BACTRIM DS 800-160 MG ORAL TABLET 1 tab by mouth twice daily 2015 TRIMETHOPRIM-SULFAMETHOXAZOLE 49147360618 No Longer Active Julián Sue MD Active CLARITIN 10 MG ORAL TABLET 1 tablet by mouth daily as needed for allergies LORATADINE 14988190136 No Longer Active Julián Sue MD Active FLUTICASONE PROPIONATE 50 MCG/ACT NASAL SUSPENSION 1 to 2 sprays each nostril daily FLUTICASONE PROPIONATE 89827357363 No Longer Active Julián uSe MD Active AUGMENTIN 875-125 MG ORAL TABLET 1 po BID x 10 days AMOXICILLIN-POT CLAVULANATE 85665768724 No Longer Active Jillina Frazell MANUFACTURING TEAM LEADER Active PREDNISONE 20 MG ORAL TABLET 2 tabs daily for 3 days, 1 tab daily for 3 days, 1/2 tab daily for 2 days PREDNISONE 11792776099 No Longer Active Jillina Frazell MANUFACTURING TEAM LEADER Active AZITHROMYCIN 250 MG ORAL TABLET 2 po qd x 1 day, then 1 po qd x 4 days 03/16 AZITHROMYCIN 62358337358 No Longer Active Jillina Frazell MANUFACTURING TEAM LEADER Active FLONASE 50 MCG/ACT NASAL SUSPENSION 1 spray each nostril twice daily for allergies and runny nose FLUTICASONE PROPIONATE 42418801107 No Longer Active Jillina Frazell MANUFACTURING TEAM LEADER Active CEFTIN 500 MG ORAL TABLET 1 twice a day CEFUROXIME AXETIL 17807815639 No Longer Active Jillina Frazell MANUFACTURING TEAM LEADER Active PREDNISONE 20 MG ORAL TABLET 2 tablets today, then 1 tablet days 2 and 3 2014 PREDNISONE 62651937257 No Longer Active Jillina Frazell MANUFACTURING TEAM LEADER Active TYLENOL WITH CODEINE #3 300-30 MG ORAL TABLET 1 pill by mouth up to every 6 hours if needed for pain ACETAMINOPHEN-CODEINE 67374748663 No Longer Active Carter Blanco DO Active FLONASE 50 MCG/ACT NASAL SUSPENSION 1 spray each nostril am and hs FLUTICASONE PROPIONATE 56158887132 No Longer Active Carter Blanco DO Active PREDNISONE 20 MG ORAL TABLET 2 tablets today, then 1 tablet days 2 and 3 2014 PREDNISONE 78319862328 No Longer Active Steffany Lynch MD PhD Active ZITHROMAX 250 MG ORAL TABLET 2 po today, then 1 po q days 2-5 AZITHROMYCIN 05091202014 No Longer Active Julián Sue MD Active FLONASE 50 MCG/ACT NASAL SUSPENSION 1 puff in each nostril twice daily 12/17 FLUTICASONE PROPIONATE 24111448620 No Longer Active Elle Giang APRN Active AMOXICILLIN 875 MG ORAL TABLET 1 bid AMOXICILLIN 75585306616 No Longer Active Elle Giang APRN Active AMOXICILLIN 875 MG ORAL TABLET 1 bid AMOXICILLIN 875 MG ORAL TABLET 616537 AMOXICILLIN Inactive FLONASE 50 MCG/ACT NASAL SUSPENSION 1 puff in each nostril twice daily 12/17 FLONASE 50 MCG/ACT NASAL SUSPENSION 0986454 FLUTICASONE PROPIONATE Inactive PREDNISONE 20 MG ORAL TABLET 2 tablets today, then 1 tablet days 2 and 3 2014 PREDNISONE 20 MG ORAL TABLET 029502 PREDNISONE Inactive FLONASE 50 MCG/ACT NASAL SUSPENSION 1 spray each nostril am and hs FLONASE 50 MCG/ACT NASAL SUSPENSION 7694650 FLUTICASONE PROPIONATE Inactive TYLENOL WITH CODEINE #3 300-30 MG ORAL TABLET 1 pill by mouth up to every 6 hours if needed for pain TYLENOL WITH CODEINE #3 300- 30 MG ORAL TABLET ACETAMINOPHEN-CODEINE Inactive PREDNISONE 20 MG ORAL TABLET 2 tablets today, then 1 tablet days 2 and 3 2014 PREDNISONE 20 MG ORAL TABLET 142224 PREDNISONE Inactive CEFTIN 500 MG ORAL TABLET 1 twice a day CEFTIN 500 MG ORAL TABLET CEFUROXIME AXETIL Inactive FLONASE 50 MCG/ACT NASAL SUSPENSION 1 spray each nostril twice daily for allergies and runny nose FLONASE 50 MCG/ACT NASAL SUSPENSION 1703063 FLUTICASONE PROPIONATE Inactive FLUTICASONE PROPIONATE 50 MCG/ACT NASAL SUSPENSION 1 to 2 sprays each nostril daily FLUTICASONE PROPIONATE 50 MCG/ACT NASAL SUSPENSION 7036955 FLUTICASONE PROPIONATE Inactive CLARITIN 10 MG ORAL TABLET 1 tablet by mouth daily as needed for allergies CLARITIN 10 MG ORAL TABLET 903290 LORATADINE Inactive CHERATUSSIN AC 100-10 MG/5ML ORAL SYRUP 1 tsp by mouth every 4 hours as needed for cough CHERATUSSIN AC 100-10 MG/5ML ORAL SYRUP 220881 GUAIFENESIN-CODEINE Inactive ZITHROMAX Z-YOSEF 250 MG ORAL TABLET 2 today and then 1 daily for 4 days 01/02 ZITHROMAX Z-YOSEF 250 MG ORAL TABLET 238075 AZITHROMYCIN Inactive ZITHROMAX 250 MG ORAL TABLET 2 po today, then 1 po q days 2-5 ZITHROMAX 250 MG ORAL TABLET 834251 AZITHROMYCIN Inactive AZITHROMYCIN 250 MG ORAL TABLET 2 po qd x 1 day, then 1 po qd x 4 days 03/16 AZITHROMYCIN 250 MG ORAL TABLET 662955 AZITHROMYCIN Inactive PREDNISONE 20 MG ORAL TABLET 2 tabs daily for 3 days, 1 tab daily for 3 days, 1/2 tab daily for 2 days PREDNISONE 20 MG ORAL TABLET 486612 PREDNISONE Inactive AUGMENTIN 875-125 MG ORAL TABLET 1 po BID x 10 days AUGMENTIN 875-125 MG ORAL TABLET 192786 AMOXICILLIN-POT CLAVULANATE Inactive BACTRIM DS 800-160 MG ORAL TABLET 1 tab by mouth twice daily 2015 BACTRIM DS 800-160 MG ORAL TABLET 666964 TRIMETHOPRIM- SULFAMETHOXAZOLE Inactive Immunizations Vaccine Administration Date Value Standard Description Adacel (Tetanus, reduced Diphtheria, and acellular Pertussis Immunization) Adacel [[id number]] tetanus toxoid, reduced diphtheria toxoid, and acellular [...] given Historical hepatitis B vaccine, unspecified formulation Encounters Code Encounter Date Provider Facility CPT-31476 Level 3 Est. Patient 14:06:42 [employer] ENFORCEMENT OFFICER Anastasia Martino [facility] CPT-85617 Level 3 Est. Patient 12:30:51 CDT Julián Sue MD [facility] CPT-15783 Level 3 Est. Patient 13:56:53 [employer] ENFORCEMENT OFFICER Wilberto Escobar [facility] CPT-73317 Level 3 Est. Patient 09:50:19 [employer]IM[employer] ENFORCEMENT OFFICER Wilberto Escobar [facility] CPT-95957 Level 3 Est. Patient 18:01:13 CDT Carter Blanco [facility] CPT-36640 Level 2 Est. Patient 15:48:46 CDT Steffany Lynch MD [facility] CPT-78860 Level 2 Est. Patient 13:26:32 CDT Steffany Lynch MD [facility] CPT-66284 Level 3 Est. Patient 10:13:02 CDT Steffany Lynch MD [facility] CPT-13682 Level 2 New Patient 14:45:33 CDT Steffany Lynch MD [facility] CPT-49387 Level 3 Est. Patient 16:57:05 [employer] E[employer]CEMENT OFFICER Carter Blanco [facility] CPT-94505 Level 3 Est. Patient 09:58:27 CDT Julián Sue MD [facility] CPT-74693 Level 3 Est. Patient 10:17:17 [employer] ENFORCEMENT OFFICER Carter Blanco [facility] CPT-00052 Level 3 Est. Patient 10:42:29 [employer] ENFORCEMENT OFFICER Elle Giang [facility] CPT-35705 Level 3 Est. Patient 10:00:26 CDT Susan Mckinnon MD [facility] CPT-03949 Level 3 Est. Patient 15:14:48 CDT Susna Mckinnon MD [facility] Procedures Code Procedure Name Date Entry Date Standard Description CPT-A4570 Splint 15:14:48 CDT CPT-26947 Ankle Complete - Min 3V 14:40:31 CDT
--- OUTSIDE RECORDS SUMMARY | 2018-04-04 06:32 | XMS REPORT | Clinical Summary ---
Author Author Admin, OBDULIO Organization [facility] Address Unknown Phone Unavailable Allergies, Adverse Reactions, Alerts Allergy Name Reaction Description Start Date Severity Status Provider No Known Allergies MANUELA Pham Conditions or Problems Problem Name Problem Code [...] 6 hours if needed for pain ACETAMINOPHEN-CODEINE 32457628836 Active Steffany Lynch MD PhD Active PREDNISONE 20 MG TAB 2 tablets today, then 1 tablet days 2 and 3 PREDNISONE 63768567893 No Longer Active Steffany Lynch MD PhD Active FLONASE 50 MCG/ACT SUSP 1 spray each nostril am and hs FLUTICASONE PROPIONATE 49802539117 Active Carter Blanco DO Active ZITHROMAX 250 MG TAB 2 po today, then 1 po q days 2-5 AZITHROMYCIN 93792964112 No Longer Active Julián Sue MD Active FLONASE 50 MCG/ACT SUSP 1 puff in each nostril twice daily 12/30 FLUTICASONE PROPIONATE 30407875476 No Longer Active Elle Giang APRN Active AMOXICILLIN 875 MG TABS 1 bid AMOXICILLIN 38261666381 No Longer Active Elle Giang APRN Active AMOXICILLIN 875 MG TABS 1 bid AMOXICILLIN 875 MG TABS 887801 AMOXICILLIN Inactive FLONASE 50 MCG/ACT SUSP 1 puff in each nostril twice daily 12/30 FLONASE 50 MCG/ACT SUSP 996968 FLUTICASONE PROPIONATE Inactive PREDNISONE 20 MG TAB 2 tablets today, then 1 tablet days 2 and 3 PREDNISONE 20 MG TAB 916004 PREDNISONE Inactive ZITHROMAX 250 MG TAB 2 po today, then 1 po q days 2-5 ZITHROMAX 250 MG TAB 4864458 AZITHROMYCIN Inactive Immunizations Vaccine Administration Date Value Standard Description Adacel (Tetanus, reduced Diphtheria, and acellular Pertussis Immunization) Adacel [[id number]] tetanus toxoid, reduced diphtheria toxoid, and acellular [...] Range Description blood pressure, diastolic - 8462-4 81 mm[Hg] [...] Negative Encounters Code Encounter Date Provider Facility [facility]-13766 Level 2 Est. Patient 13:26:32 CDT Steffany Lynch MD PhD [facility]-70029 Level 3 Est. Patient 10:13:02 CDT Steffany Lynch MD [facility] CPT-01830 Level 2 New Patient 14:45:33 CDT Steffany Lynch MD [facility]-04383 Level 3 Est. Patient 16:57:05 LEADITE MAN Carter Blanco [facility] CPT-11048 Level 3 Est. Patient 09:58:27 CDT Julián Sue MD [facility]-80565 Level 3 Est. Patient 10:17:17 LEADITE MAN Carter Blanco [facility] CPT-28573 Level 3 Est. Patient 10:42:29 LEADITE MAN Elle Giang APRN [facility] CPT-97281 Level 3 Est. Patient 10:00:26 CDT Susan Mckinnon MD [facility]-10420 Level 3 Est. Patient 15:14:48 CDT Susan Mckinnon MD [facility] Procedures Code Procedure Name Date Entry Date Standard Description CPT-A4570 Splint 15:14:48 CDT CPT-44512 Ankle Complete - Min 3V 14:40:31 CDT
--- OUTSIDE RECORDS SUMMARY | 2018-04-04 06:32 | XMS REPORT | Clinical Summary ---
Author Author Admin, OBDULIO Organization [facility] Address Unknown Phone Unavailable Allergies, Adverse [...] 6 hours if needed for pain ACETAMINOPHEN-CODEINE 90674008109 Active Steffany Lynch MD PhD Active PREDNISONE 20 MG TAB 2 tablets today, then 1 tablet days 2 and 3 PREDNISONE 58323935835 No Longer Active Steffany Lynch MD PhD Active FLONASE 50 MCG/ACT SUSP 1 spray each nostril am and hs FLUTICASONE PROPIONATE 14487661534 Active Carter Blanco DO Active ZITHROMAX 250 MG TAB 2 po today, then 1 po q days 2-5 AZITHROMYCIN 05655014990 No Longer Active Julián Sue MD Active FLONASE 50 MCG/ACT SUSP 1 puff in each nostril twice daily 12/30 FLUTICASONE PROPIONATE 08912788871 No Longer Active Elle Giang APRN Active AMOXICILLIN 875 MG TABS 1 bid AMOXICILLIN 49779359763 No Longer Active Elle Giang APRN Active AMOXICILLIN 875 MG TABS 1 bid AMOXICILLIN 875 MG TABS 040185 AMOXICILLIN Inactive FLONASE 50 MCG/ACT SUSP 1 puff in each nostril twice daily 12/30 FLONASE 50 MCG/ACT SUSP 244593 FLUTICASONE PROPIONATE Inactive PREDNISONE 20 MG TAB 2 tablets today, then 1 tablet days 2 and 3 PREDNISONE 20 MG TAB 136059 PREDNISONE Inactive ZITHROMAX 250 MG TAB 2 po today, then 1 po q days 2-5 ZITHROMAX 250 MG TAB 8621202 AZITHROMYCIN Inactive Immunizations Vaccine Administration Date Value Standard Description Adacel (Tetanus, reduced Diphtheria, and acellular Pertussis Immunization) Adacel [[id number]] tetanus toxoid, reduced diphtheria toxoid, and acellular [...] Negative Encounters Code Encounter Date Provider Facility [facility]-11285 Level 2 Est. Patient 15:48:46 CDT Steffany Lynch MD [facility]-20006 Level 2 Est. Patient 13:26:32 CDT Steffany Lynch MD [facility]-27794 Level 3 Est. Patient 10:13:02 CDT Steffany Lynch MD [facility]-34427 Level 2 New Patient 14:45:33 CDT Steffany Lynch MD [facility]-45371 Level 3 Est. Patient 16:57:05 RIVET DRIVER Carter Blanco [facility][note 2]-01855 Level 3 Est. Patient 09:58:27 CDT Julián Sue MD [facility]-73249 Level 3 Est. Patient 10:17:17 RIVET DRIVER Carter Blanco [facility][note 2]-39726 Level 3 Est. Patient 10:42:29 RIVET DRIVER Elle Giang APRN [facility]-04382 Level 3 Est. Patient 10:00:26 CDT Susan Mckinnon MD [facility]-48406 Level 3 Est. Patient 15:14:48 CDT Susan Mckinnon MD [facility] Procedures Code Procedure Name Date Entry Date Standard Description CPT-A4570 Splint 15:14:48 CDT CPT-60312 Ankle Complete - Min 3V 14:40:31 CDT
--- OUTSIDE RECORDS SUMMARY | 2018-04-04 06:33 | XMS REPORT | Clinical Summary ---
Author Author Admin, OBDULIO Organization [facility] Address Unknown Phone Allergies, Adverse Reactions, Alerts Allergy Name Reaction Description Start Date Severity Status Provider No Known Allergies Daylin Wallace LPN Conditions or Problems Problem Name Problem Code Onset Date Status Entry Date Provider Comment Standard Description Annotate ANKLE PAIN, RIGHT 719.47 Active Susan Mckinnon MD Pain in joint involving ankle and foot FAMILY HISTORY OF HYPERTENSION V17.4 Active Susan Mckinnon MD Family history of other cardiovascular diseases Sinusitis-Acute 461.9 Inactive Susan Mckinnon MD Acute sinusitis, unspecified Abdominal pain, right upper quadrant 789.01 Active Elle Giang APRN Abdominal pain, right upper quadrant Knee pain, right 719.46 Active Carter Blanco DO Pain in joint involving lower leg Sinusitis-Acute ICD-461.9 Inactive Susan Mckinnon MD Medication List Medication Instructions Start Date Stop Date Generic Name [facility][NOTE 3] Status Provider Patient Instruction FLONASE 50 MCG/ACT SUSP 1 puff in each nostril twice daily 12/30 FLUTICASONE PROPIONATE 33874258427 No Longer Active Elle Giang APRN Active AMOXICILLIN 875 MG TABS 1 bid AMOXICILLIN 05420226762 No Longer Active Elle Giang APRN Active AMOXICILLIN 875 MG TABS 1 bid AMOXICILLIN 875 MG TABS 006127 AMOXICILLIN Inactive FLONASE 50 MCG/ACT SUSP 1 puff in each nostril twice daily 12/30 FLONASE 50 MCG/ACT SUSP 545575 FLUTICASONE PROPIONATE Inactive Immunizations Vaccine Administration Date Value Standard Description Adacel immunization Adacel [[id number]] tetanus toxoid, reduced diphtheria toxoid, and acellular pertussis vaccine, adsorbed chicken pox immunization #1 Historical varicella virus vaccine hepatitis A immunization #1 Historical hepatitis A vaccine, unspecified formulation DPT immunization #5 Historical oral polio vaccine (OPV) #4 Historical poliovirus vaccine, unspecified formulation MMR virus immunization #2 Historical DPT immunization #4 Historical Hemophilus influenza B immunization #4 Historical Haemophilus influenzae type b vaccine, conjugate unspecified formulation oral polio vaccine (OPV) #3 Historical poliovirus vaccine, unspecified formulation MMR virus immunization #1 Historical hepatitis B vaccine [...] vaccine, unspecified formulation hepatitis B vaccine #2 Historical hepatitis B vaccine, unspecified formulation DPT immunization #1 Historical Hemophilus influenza B immunization #1 Historical Haemophilus influenzae type b vaccine, conjugate unspecified formulation oral polio vaccine (OPV) #1 Historical poliovirus vaccine, unspecified formulation hepatitis B vaccine #1 Historical hepatitis B vaccine, unspecified formulation Vital Signs Date Name Value Unit Range Description blood pressure, diastolic 92 mm[Hg] BP mata blood pressure, systolic 151 mm[Hg] BP sys height E&M 76.25 [in_us] Bdy height pulse rate E&M 61 /min Heart rate temperature E&M 97.6 [degF] Body temperature weight E&M 214.50 [lb_av] Weight Measured blood pressure, diastolic 85 mm[Hg] BP mata blood pressure, systolic 156 mm[Hg] BP sys height E&M 75.5 [in_us] Bdy height pulse rate E&M 69 /min Heart rate temperature E&M 98.3 [degF] Body temperature weight E&M 215.39 [lb_av] Weight Measured blood pressure, diastolic 78 mm[Hg] BP mata blood pressure, systolic 122 mm[Hg] BP sys height E&M 75.5 [in_us] Bdy height temperature E&M 97.4 [degF] Body temperature weight E&M 216 [lb_av] Weight Measured blood pressure, diastolic 70 mm[Hg] BP mata blood pressure, systolic 120 mm[Hg] BP sys height E&M 76 [in_us] Bdy height temperature E&M 99.3 [degF] Body temperature weight E&M 205 [lb_av] Weight Measured Encounters Code Encounter Date Provider Facility CPT-87242 Level 3 Est. Patient 10:17:17 GEAR FINISHER Carter Blanco DO [facility] CPT-85922 Level 3 Est. Patient 10:42:29 GEAR FINISHER Elle Giang APRN [facility] CPT-68891 Level 3 Est. Patient 10:00:26 CDT Susan Mckinnon MD [facility] CPT-37236 Level 3 Est. Patient 15:14:48 CDT Susan Mckinnon MD [facility] Procedures Code Procedure Name Date Entry Date Standard Description CPT-A4570 Splint 15:14:48 CDT CPT-14379 Ankle Complete - Min 3V 14:40:31 CDT
--- OUTSIDE RECORDS SUMMARY | 2018-04-04 06:33 | XMS REPORT | Clinical Summary ---
Author Author Admin, OBDULIO Organization [facility] Address Unknown Phone Unavailable Allergies, Adverse Reactions, [...] 4 hours as needed for cough GUAIFENESIN-CODEINE 78725968366 Active Anastasia Martino APRN Active ZITHROMAX Z-YOSEF 250 MG TABS 2 today and then 1 daily for 4 days AZITHROMYCIN 19856759763 Active Anastasia Martino APRN Active BACTRIM DS 800-160 MG TAB 1 tab by mouth twice daily TRIMETHOPRIM-SULFAMETHOXAZOLE 20497115281 No Longer Active Julián Sue MD Active CLARITIN 10 MG TAB 1 tablet by mouth daily as needed for allergies LORATADINE 13608195614 No Longer Active Julián Sue MD Active FLUTICASONE PROPIONATE 50 MCG/ACT SUSP 1 to 2 sprays each nostril daily 03/21 FLUTICASONE PROPIONATE 55823267772 No Longer Active Julián Sue MD Active AUGMENTIN 875-125 MG TAB 1 po BID x 10 days AMOXICILLIN-POT CLAVULANATE 61194475867 No Longer Active Jillina Frazell WELDER FABRICATOR Active PREDNISONE 20 MG TAB 2 tabs daily for 3 days, 1 tab daily for 3 days, 1/2 tab daily for 2 days PREDNISONE 78743868580 No Longer Active Jillina Frazell WELDER FABRICATOR Active AZITHROMYCIN 250 MG TABS 2 po qd x 1 day, then 1 po qd x 4 days AZITHROMYCIN 33094552525 No Longer Active Jillina Frazell WELDER FABRICATOR Active FLONASE 50 MCG/ACT SUSP 1 spray each nostril twice daily for allergies and runny nose FLUTICASONE PROPIONATE 61306203093 No Longer Active Jillina Frazell WELDER FABRICATOR Active CEFTIN 500 MG TAB 1 twice a day CEFUROXIME AXETIL 53075887175 No Longer Active Jillina Frazell WELDER FABRICATOR Active PREDNISONE 20 MG TAB 2 tablets today, then 1 tablet days 2 and 3 PREDNISONE 60096960472 No Longer Active Jillina Frazell WELDER FABRICATOR Active TYLENOL WITH CODEINE #3 300-30 MG TABS 1 pill by mouth up to every 6 hours if needed for pain ACETAMINOPHEN-CODEINE 95650872153 No Longer Active Carter lBanco DO Active FLONASE 50 MCG/ACT SUSP 1 spray each nostril am and hs FLUTICASONE PROPIONATE 49115084474 No Longer Active Carter Blanco DO Active PREDNISONE 20 MG TAB 2 tablets today, then 1 tablet days 2 and 3 PREDNISONE 42237607177 No Longer Active Steffany Lynch MD PhD Active ZITHROMAX 250 MG TAB 2 po today, then 1 po q days 2-5 AZITHROMYCIN 60565852864 No Longer Active Julián Sue MD Active FLONASE 50 MCG/ACT SUSP 1 puff in each nostril twice daily 12/30 FLUTICASONE PROPIONATE 42069262950 No Longer Active Elle Giang APRN Active AMOXICILLIN 875 MG TABS 1 bid AMOXICILLIN 03098973589 No Longer Active Elle Giang APRN Active AMOXICILLIN 875 MG TABS 1 bid AMOXICILLIN 875 MG TABS 576168 AMOXICILLIN Inactive FLONASE 50 MCG/ACT SUSP 1 puff in each nostril twice daily 12/30 FLONASE 50 MCG/ACT SUSP FLUTICASONE PROPIONATE Inactive PREDNISONE 20 MG TAB 2 tablets today, then 1 tablet days 2 and 3 PREDNISONE 20 MG TAB 868720 PREDNISONE Inactive FLONASE 50 MCG/ACT SUSP 1 spray each nostril am and hs FLONASE 50 MCG/ACT SUSP FLUTICASONE PROPIONATE Inactive TYLENOL WITH CODEINE #3 300-30 MG TABS 1 pill by mouth up to every 6 hours if needed for pain TYLENOL WITH CODEINE #3 300-30 MG TABS 594376 ACETAMINOPHEN-CODEINE Inactive PREDNISONE 20 MG TAB 2 tablets today, then 1 tablet days 2 and 3 PREDNISONE 20 MG TAB 955020 PREDNISONE Inactive CEFTIN 500 MG TAB 1 twice a day CEFTIN 500 MG TAB 235799 CEFUROXIME AXETIL Inactive FLONASE 50 MCG/ACT SUSP 1 spray each nostril twice daily for allergies and runny nose FLONASE 50 MCG/ACT SUSP FLUTICASONE PROPIONATE Inactive FLUTICASONE PROPIONATE 50 MCG/ACT SUSP 1 to 2 sprays each nostril daily 03/21 FLUTICASONE PROPIONATE 50 MCG/ACT SUSP 0986545 FLUTICASONE PROPIONATE Inactive CLARITIN 10 MG TAB 1 tablet by mouth daily as needed for allergies CLARITIN 10 MG TAB 425838 LORATADINE Inactive ZITHROMAX 250 MG TAB 2 po today, then 1 po q days 2-5 ZITHROMAX 250 MG TAB 5443398 AZITHROMYCIN Inactive AZITHROMYCIN 250 MG TABS 2 po qd x 1 day, then 1 po qd x 4 days AZITHROMYCIN 250 MG TABS 8058507 AZITHROMYCIN Inactive PREDNISONE 20 MG TAB 2 tabs daily for 3 days, 1 tab daily for 3 days, 1/2 tab daily for 2 days PREDNISONE 20 MG TAB 402819 PREDNISONE Inactive AUGMENTIN 875-125 MG TAB 1 po BID x 10 days AUGMENTIN 875-125 MG TAB 641839 AMOXICILLIN-POT CLAVULANATE Inactive BACTRIM DS 800-160 MG TAB 1 tab by mouth twice daily BACTRIM DS 800-160 MG TAB 956935 TRIMETHOPRIM-SULFAMETHOXAZOLE Inactive Immunizations Vaccine Administration Date Value Standard Description Adacel (Tetanus, reduced Diphtheria, and acellular Pertussis Immunization) Adacel [[id number]] tetanus toxoid, reduced diphtheria toxoid, and acellular [...] Range Description blood pressure, diastolic - 8462-4 96 mm[Hg] BP mata blood pressure, systolic - 8480-6 157 mm[Hg] BP sys pulse rate E&M - 8867-4 79 /min Heart rate temperature E&M 98 [degF] Body temperature weight E&M - 3141-9 255.5 [lb_av] Weight Measured blood pressure, diastolic - [...] Negative Encounters Code Encounter Date Provider Facility CPT-92815 Level 3 Est. 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 Patient 12:30:51 CDT Julián Sue MD [facility] CPT-09623 Level 3 Est. Patient 13:56:53 WELDING PANTOGRAPH MACHINE OPERATOR Wilberto Escobar [facility] [place] [facility] CPT-07403 Level 3 Est. Patient 09:50:19 WELDING PANTOGRAPH MACHINE OPERATOR Wilberto Escobar [facility] CPT-41695 Level 3 Est. Patient 18:01:13 CDT Carter Blanco [facility] CPT-29092 Level 2 Est. Patient 15:48:46 CDT Steffany Lynch MD [facility] CPT-18587 Level 2 Est. Patient 13:26:32 CDT Steffany Lynch MD [facility] CPT-22933 Level 3 Est. Patient 10:13:02 CDT Steffany Lynch MD [facility] CPT-76768 Level 2 New Patient 14:45:33 CDT Steffany Lynch MD [facility] CPT-89844 Level 3 Est. Patient 16:57:05 WELDING PANTOGRAPH MACHINE OPERATOR Carter Blanco [facility] CPT-24777 Level 3 Est. Patient 09:58:27 CDT Julián Sue MD [facility] CPT-51163 Level 3 Est. Patient 10:17:17 WELDING PANTOGRAPH MACHINE OPERATOR Carter Blanco [facility] CPT-55438 Level 3 Est. Patient 10:42:29 WELDING PANTOGRAPH MACHINE OPERATOR Elle Giang [facility] CPT-00035 Level 3 Est. Patient 10:00:26 CDT Susan Mckinnon MD [facility] CPT-43561 Level 3 Est. Patient 15:14:48 CDT Susan Mckinnon MD [facility] Procedures Code Procedure Name Date Entry Date Standard Description CPT-A4570 Splint 15:14:48 CDT CPT-63511 Ankle Complete - Min 3V 14:40:31 CDT
--- OUTSIDE RECORDS SUMMARY | 2018-04-04 06:33 | XMS REPORT | Clinical Summary ---
Author Author Admin, OBDULIO Organization [facility] Address Unknown Phone Allergies, Adverse [...] Instructions Start Date Stop Date Generic Name [facility] Status Provider Patient Instruction FLONASE 50 MCG/ACT SUSP 1 puff in each nostril twice daily 12/30 FLUTICASONE PROPIONATE 36401758307 No Longer Active Elle Giang APRN Active AMOXICILLIN 875 MG TABS 1 bid AMOXICILLIN 16906535449 No Longer Active Elle Giang APRN Active AMOXICILLIN 875 MG TABS 1 bid AMOXICILLIN 875 MG TABS 993548 AMOXICILLIN Inactive FLONASE 50 MCG/ACT SUSP 1 puff in each nostril twice daily 12/30 FLONASE 50 MCG/ACT SUSP 745819 FLUTICASONE PROPIONATE Inactive Immunizations Vaccine Administration Date Value Standard Description Adacel immunization Adacel [[id number]] tetanus toxoid, reduced diphtheria toxoid, and acellular [...] Measured Encounters Code Encounter Date Provider Facility CPT-56727 Level 3 Est. 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 Patient 10:42:29 POLYMERIZATION OVEN TENDER Elle Giang APRN [facility] CPT-59397 Level 3 Est. Patient 10:00:26 CDT Susan Mckinnon MD [facility] CPT-21010 Level 3 Est. Patient 15:14:48 CDT Susan Mckinnon MD [facility] Procedures Code Procedure Name Date Entry Date Standard Description CPT-A4570 Splint 15:14:48 CDT CPT-75759 Ankle Complete - Min 3V 14:40:31 CDT
--- OUTSIDE RECORDS SUMMARY | 2018-04-04 06:33 | XMS REPORT | Clinical Summary ---
Author Author Admin, OBDULIO [facility] Address Unknown Phone Unavailable Allergies, Adverse Reactions, Alerts Allergy Name Reaction Description Start Date Severity Status Provider No Known Allergies Yaquelin Echeverria MA Conditions or Problems Problem Name Problem [...] DO Pain in joint involving lower leg SINUSITIS, ACUTE 461.9 Inactive Julián Sue MD Acute sinusitis, unspecified Nasal congestion 478.19 Active Carter Blanco DO Other disease of nasal cavity and sinuses Pharyngitis-Acute 462 Active Carter Blanco DO Acute pharyngitis Sinusitis-Acute ICD-461.9 Inactive Susan Mckinnon MD SINUSITIS, ACUTE ICD-461.9 Inactive Julián Sue MD Medication List Medication Instructions Start Date Stop Date Generic Name ND Status Provider Patient Instruction PREDNISONE 20 MG TAB 2 tablets today, then 1 tablet days 2 and 3 PREDNISONE 54241177720 Active Carter W Francis DO Active FLONASE 50 MCG/ACT SUSP 1 spray each nostril am and hs FLUTICASONE PROPIONATE 90292695470 Active Carter Blanco DO Active ZITHROMAX 250 MG TAB 2 po today, then 1 po q days 2-5 AZITHROMYCIN 16521721518 No Longer Active Julián Sue MD Active FLONASE 50 MCG/ACT SUSP 1 puff in each nostril twice daily 12/30 FLUTICASONE PROPIONATE 82969434443 No Longer Active Elle Giang APRN Active AMOXICILLIN 875 MG TABS 1 bid AMOXICILLIN 43077173486 No Longer Active Elle Giang APRN Active AMOXICILLIN 875 MG TABS 1 bid AMOXICILLIN 875 MG TABS 663136 AMOXICILLIN Inactive FLONASE 50 MCG/ACT SUSP 1 puff in each nostril twice daily 12/30 FLONASE 50 MCG/ACT SUSP 812251 FLUTICASONE PROPIONATE Inactive ZITHROMAX 250 MG TAB 2 po today, then 1 po q days 2-5 ZITHROMAX 250 MG TAB 1209824 AZITHROMYCIN Inactive Immunizations Vaccine Administration Date Value Standard Description Adacel (Tetanus, reduced Diphtheria, and acellular Pertussis Immunization) Adacel [[id number]] tetanus toxoid, reduced diphtheria toxoid, and acellular [...] Range Description blood pressure, diastolic - 8462-4 91 mm[Hg] [...] E&M - 3141-9 227 [lb_av] Weight Measured blood pressure, diastolic - 8462-4 92 mm[Hg] BP mata blood pressure, systolic - 8480-6 151 mm[Hg] BP sys height E&M - 8302-2 76.25 [in_us] Bdy height pulse rate E&M - 8867-4 61 /min Heart rate temperature E&M 97.6 [degF] Body temperature weight E&M - 3141-9 214.50 [lb_av] Weight Measured Diagnostic Results Date Name Value Unit Range Description Lab Report: RapidStrep Rflx/Cx - Lab Microbial identification kit, rapid strep method Negative-Throat Culture to Follow Negative Encounters Code Encounter Date Provider Facility CPT-60220 Level 3 Est. Patient 16:57:05 REPAIRING CALIBRATOR Carter Blanco [facility] CPT-90244 Level 3 Est. Patient 09:58:27 CDT Julián Sue MD [facility] CPT-19603 Level 3 Est. Patient 10:17:17 REPAIRING CALIBRATOR Carter Blanco [facility] CPT-27732 Level 3 Est. Patient 10:42:29 REPAIRING CALIBRATOR Elle Giang APRN [facility] CPT-68897 Level 3 Est. Patient 10:00:26 CDT Susan Mckinnon MD [facility]-20927 Level 3 Est. Patient 15:14:48 CDT Susan Mckinnon MD [facility] Procedures Code Procedure Name Date Entry Date Standard Description CPT-A4570 Splint 15:14:48 CDT CPT-14409 Ankle Complete - Min 3V 14:40:31 CDT
--- OUTSIDE RECORDS SUMMARY | 2018-04-04 06:34 | XMS REPORT | Clinical Summary ---
Author Author Admin, OBDULIO [facility] Address Unknown Phone Unavailable Allergies, [...] 1 tablet days 2 and 3 PREDNISONE 52931045346 Active Carter W Francis DO Active FLONASE 50 MCG/ACT SUSP 1 spray each nostril am and hs FLUTICASONE PROPIONATE 36533592903 Active Carter Blanco DO Active ZITHROMAX 250 MG TAB 2 po today, then 1 po q days 2-5 AZITHROMYCIN 07516113737 No Longer Active Julián Sue MD Active FLONASE 50 MCG/ACT SUSP 1 puff in each nostril twice daily 12/30 FLUTICASONE PROPIONATE 84606244302 No Longer Active Elle Giang APRN Active AMOXICILLIN 875 MG TABS 1 bid AMOXICILLIN 90231330382 No Longer Active Elle Giang APRN Active AMOXICILLIN 875 MG TABS 1 bid AMOXICILLIN 875 MG TABS 630384 AMOXICILLIN Inactive FLONASE 50 MCG/ACT SUSP 1 puff in each nostril twice daily 12/30 FLONASE 50 MCG/ACT SUSP 488928 FLUTICASONE PROPIONATE Inactive ZITHROMAX 250 MG TAB 2 po today, then 1 po q days 2-5 ZITHROMAX 250 MG TAB 0360877 AZITHROMYCIN Inactive Immunizations Vaccine Administration Date Value Standard Description Adacel (Tetanus, reduced Diphtheria, and acellular Pertussis Immunization) Adacel [RBS449] tetanus toxoid, reduced diphtheria toxoid, and acellular [...] Negative Encounters Code Encounter Date Provider Facility CPT-65519 Level 3 Est. 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 Patient 09:58:27 CDT Julián Sue MD [facility] CPT-47477 Level 3 Est. Patient 10:17:17 SOFT WORK WRAPPER EXAMINER Carter Blanco [facility] CPT-34848 Level 3 Est. Patient 10:42:29 SOFT WORK WRAPPER EXAMINER Elle Giang APRN [facility] CPT-20372 Level 3 Est. Patient 10:00:26 CDT Susan Mckinnon MD [facility]-16513 Level 3 Est. Patient 15:14:48 CDT Susan Mckinnon MD [facility] Procedures Code Procedure Name Date Entry Date Standard Description CPT-A4570 Splint 15:14:48 CDT CPT-70282 Ankle Complete - Min 3V 14:40:31 CDT
--- OUTSIDE RECORDS SUMMARY | 2018-04-04 06:34 | XMS REPORT | Clinical Summary ---
Author Author Admin, OBDULIO [facility] Address Unknown Phone Unavailable Allergies, Adverse [...] 1 tablet days 2 and 3 PREDNISONE 36967900038 Active Carter W Francis DO Active FLONASE 50 MCG/ACT SUSP 1 spray each nostril am and hs FLUTICASONE PROPIONATE 78980362158 Active Caretr Blanco DO Active ZITHROMAX 250 MG TAB 2 po today, then 1 po q days 2-5 AZITHROMYCIN 53329468258 No Longer Active Julián Sue MD Active FLONASE 50 MCG/ACT SUSP 1 puff in each nostril twice daily 12/30 FLUTICASONE PROPIONATE 93129033617 No Longer Active Elle Giang APRN Active AMOXICILLIN 875 MG TABS 1 bid AMOXICILLIN 20849149299 No Longer Active Elle Giang APRN Active AMOXICILLIN 875 MG TABS 1 bid AMOXICILLIN 875 MG TABS 649508 AMOXICILLIN Inactive FLONASE 50 MCG/ACT SUSP 1 puff in each nostril twice daily 12/30 FLONASE 50 MCG/ACT SUSP 811894 FLUTICASONE PROPIONATE Inactive ZITHROMAX 250 MG TAB 2 po today, then 1 po q days 2-5 ZITHROMAX 250 MG TAB 2099316 AZITHROMYCIN Inactive Immunizations Vaccine Administration Date Value Standard Description Adacel (Tetanus, reduced Diphtheria, and acellular Pertussis Immunization) Adacel [KYV445] tetanus toxoid, reduced diphtheria toxoid, and acellular [...] Negative Encounters Code Encounter Date Provider Facility CPT-74934 Level 3 Est. Patient 16:57:05 DELVIN Blanco DO [facility] CPT-00584 Level 3 Est. Patient 09:58:27 CDT Julián Sue MD [facility] CPT-61510 Level 3 Est. Patient 10:17:17 FRONT OFFICE CLERK Carter Blanco DO [facility] CPT-29894 Level 3 Est. Patient 10:42:29 FRONT OFFICE CLERK Elle Giang APRN [facility] CPT-47348 Level 3 Est. Patient 10:00:26 CDT Susan Mckinnon MD [facility] CPT-26737 Level 3 Est. Patient 15:14:48 CDT Susan Mckinnon MD [facility] Procedures Code Procedure Name Date Entry Date Standard Description CPT-A4570 Splint 15:14:48 CDT CPT-34563 Ankle Complete - Min 3V 14:40:31 CDT
--- OUTSIDE RECORDS SUMMARY | 2018-04-04 06:34 | XMS REPORT | Clinical Summary ---
Author Author Admin, OBDULIO Organization [facility] Address Unknown Phone Allergies, Adverse Reactions, Alerts [...] Instructions Start Date Stop Date Generic Name [facility] Status Provider Patient Instruction FLONASE 50 MCG/ACT SUSP 1 puff in each nostril twice daily 12/30 FLUTICASONE PROPIONATE 07121406759 No Longer Active Elle Giang APRN Active AMOXICILLIN 875 MG TABS 1 bid AMOXICILLIN 60536815408 No Longer Active Elle Giang APRN Active AMOXICILLIN 875 MG TABS 1 bid AMOXICILLIN 875 MG TABS 078139 AMOXICILLIN Inactive FLONASE 50 MCG/ACT SUSP 1 puff in each nostril twice daily 12/30 FLONASE 50 MCG/ACT SUSP 924731 FLUTICASONE PROPIONATE Inactive Immunizations Vaccine Administration Date Value Standard Description Adacel immunization Adacel [EZX043] tetanus toxoid, reduced diphtheria toxoid, and acellular [...] unspecified formulation MMR virus immunization #1 Historical Hemophilus influenza B [...] immunization #1 Historical hepatitis B vaccine #2 Historical hepatitis B vaccine, unspecified formulation hepatitis [...] Measured Encounters Code Encounter Date Provider Facility CPT-46463 Level 3 Est. Patient 10:17:17 AEGIS OPERATIONS SPECIALIST Carter Blanco DO [facility] CPT-25183 Level 3 Est. Patient 10:42:29 AEGIS OPERATIONS SPECIALIST Elle Giang APRN [facility] CPT-33956 Level 3 Est. Patient 10:00:26 CDT Susan Mckinnon MD [facility] CPT-54340 Level 3 Est. Patient 15:14:48 CDT Susan Mckinnon MD [facility] Procedures Code Procedure Name Date Entry Date Standard Description CPT-A4570 Splint 15:14:48 CDT CPT-10957 Ankle Complete - Min 3V 14:40:31 CDT
--- OUTSIDE RECORDS SUMMARY | 2018-04-04 06:34 | XMS REPORT | Clinical Summary ---
Author Author Admin, OBDULIO Organization [facility] Address Unknown Phone Allergies, Adverse Reactions, Alerts [...] Instructions Start Date Stop Date Generic Name [facility] Status Provider Patient Instruction FLONASE 50 MCG/ACT SUSP 1 puff in each nostril twice daily 12/30 FLUTICASONE PROPIONATE 28390421084 No Longer Active Elle Giang APRN Active AMOXICILLIN 875 MG TABS 1 bid AMOXICILLIN 87401319261 No Longer Active Elle Giang APRN Active AMOXICILLIN 875 MG TABS 1 bid AMOXICILLIN 875 MG TABS 650685 AMOXICILLIN Inactive FLONASE 50 MCG/ACT SUSP 1 puff in each nostril twice daily 12/30 FLONASE 50 MCG/ACT SUSP 530425 FLUTICASONE PROPIONATE Inactive Immunizations Vaccine Administration Date Value Standard Description Adacel immunization Adacel [TYC355] tetanus toxoid, reduced diphtheria toxoid, and acellular [...] Measured Encounters Code Encounter Date Provider Facility CPT-13741 Level 3 Est. Patient 10:17:17 SOUND ENGINEERING TECHNICIAN Carter Blanco DO [facility] CPT-89764 Level 3 Est. Patient 10:42:29 SOUND ENGINEERING TECHNICIAN Elle Giang APRN [facility] CPT-23175 Level 3 Est. Patient 10:00:26 CDT Susan Mckinnon MD [facility] CPT-20846 Level 3 Est. Patient 15:14:48 CDT Susan Mckinnon MD [facility] Procedures Code Procedure Name Date Entry Date Standard Description CPT-A4570 Splint 15:14:48 CDT CPT-49253 Ankle Complete - Min 3V 14:40:31 CDT
--- OUTSIDE RECORDS SUMMARY | 2018-04-04 06:35 | XMS REPORT | Continuity of Care Document ---
Demographics x Preferred Language Unknown Marital Status Unknown Mu-Ism Affiliation Unknown Race Unknown Ethnic Group Unknown Author Author [facility] Organization [facility] Address Unknown Phone Unavailable Allergies Active Description Code Type Severity Reaction Onset Reported/Identified Relationship to Patient Clinical Status Yes No Known Medication Allergies Drug N/A N/A Yes No Known Drug Allergies [id number] Drug Allergy Unknown N/A 04/01/2018 Medications There is no data. Problems Date Dx Coded Attending Type Code Diagnosis Diagnosed By 08/12/2017 Susan Mckinnon MD H10.32 Conjunctivitis, acute, left 08/12/2017 Susan Mckinnon MD J32.9 Sinusitis 08/12/2017 Susan Mckinnon MD E66.09 Other obesity due to excess calories 08/12/2017 Susan Mckinnon MD Z68.31 Body Mass Index 31.0-31.9 Adult 08/12/2017 Susan Mckinnon MD Z68.54 Body Mass Index Percentile Pediatric greater than or equal to 95th percentile for age 0103/10/2018 JOSÉ GUERRA MD P Ot J32.9 CHRONIC SINUSITIS, UNSPECIFIED 03/10/2018 JOSÉ GUERRA MD Ot J33.9 NASAL POLYP, UNSPECIFIED 03/25/2018 JOSÉ GUERRA MD Ot J32.9 CHRONIC SINUSITIS, UNSPECIFIED 03/25/2018 JOSÉ GUERRA MD Ot J33.9 NASAL POLYP, UNSPECIFIED 04/01/2018 JOSÉ GUERRA MD Ot Z01.818 ENCOUNTER FOR OTHER PREPROCEDURAL EXAMIN Procedures There is no data. Results There is no data. Encounters ACCT No. Visit Date/Time Discharge Status Pt. Type Provider Facility Loc./Unit Complaint [id number] 10/02/2013 09:05:00 10/02/2013 12:00:00 DIS Inpatient BECKI COLIDNRES [facility] OPS [id number] 08/27/2013 14:24:00 08/27/2013 14:24:00 DIS Outpatient BECKI COLINDRES [facility] RAD [id number] 08/25/2013 08:51:00 08/25/2013 08:51:00 DIS Outpatient TANYA CORTEZ [facility] RAD [id number] 04/29/2013 16:35:00 05/13/2013 09:27:00 DIS Outpatient NASRIN CHAVEZ [facility] PT [id number] 05/01/2016 10:16:34 05/01/2016 23:59:59 CLS Outpatient JOSÉ LINDSAY [id number] 03/01/2016 10:45:21 03/01/2016 23:59:59 CLS Outpatient JOSÉ LINDSAY [id number] 03/01/2014 16:35:17 03/01/2014 23:59:59 CLS Outpatient Gemini Yoon [id number] 09/23/2013 17:13:15 09/23/2013 23:59:59 CLS Outpatient Gemini Yoon [id number] 12/28/2017 10:50:59 ACT Unknown Ino RUANO, Susan [facility] 08/16/2017 05:35:21 ACT Document Registration [id number] 04/01/2018 05:42:00 04/01/2018 14:13:00 DIS Outpatient JOSÉ GUERRA MD [facility] PREOP LEFT ESS, RED. TURBINATES [id number] 03/07/2018 07:34:00 03/07/2018 23:59:59 CLS Outpatient JOSÉ GUERRA MD [facility] RAD CHRONIC SINUSITIS [id number] 04/04/2018 07:30:00 PEN Preadmit JOSÉ GUERRA MD [facility] SDC LEFT NASAL POLYPS, DEVIATED SEPTUM, HYPERTROPHY [id number] 02/15/2017 21:21:00 02/15/2017 22:15:00 DIS Emergency Pamela Alvarez [facility] TIERRA ED ed visit
--- OUTSIDE RECORDS SUMMARY | 2018-04-04 06:35 | XMS REPORT | Clinical Summary ---
Author Author Admin, OBDULIO Corley [facility] Address Unknown Phone Unavailable Allergies, Adverse [...] 1 tablet days 2 and 3 PREDNISONE [id number] Active Carter Blanco DO Active FLONASE 50 MCG/ACT SUSP 1 spray each nostril am and hs FLUTICASONE PROPIONATE 25529791445 Active Carter Blanco DO Active ZITHROMAX 250 MG TAB 2 po today, then 1 po q days 2-5 AZITHROMYCIN 47208760695 No Longer Active Julián Sue MD Active FLONASE 50 MCG/ACT SUSP 1 puff in each nostril twice daily 12/30 FLUTICASONE PROPIONATE 51352976821 No Longer Active Elle Gaing APRN Active AMOXICILLIN 875 MG TABS 1 bid AMOXICILLIN 80287466597 No Longer Active Elle Giang APRN Active AMOXICILLIN 875 MG TABS 1 bid AMOXICILLIN 875 MG TABS 926011 AMOXICILLIN Inactive FLONASE 50 MCG/ACT SUSP 1 puff in each nostril twice daily 12/30 FLONASE 50 MCG/ACT SUSP 601779 FLUTICASONE PROPIONATE Inactive ZITHROMAX 250 MG TAB 2 po today, then 1 po q days 2-5 ZITHROMAX 250 MG TAB [id number] AZITHROMYCIN Inactive Immunizations Vaccine Administration Date Value Standard Description Adacel (Tetanus, reduced Diphtheria, and acellular Pertussis Immunization) Adacel [[id number]] tetanus toxoid, reduced diphtheria toxoid, and acellular [...] E&M - 3141-9 214.50 [lb_av] Weight Measured Encounters Code Encounter Date Provider Facility CPT-05716 Level 3 Est. Patient 16:57:05 [employer] Carter Blanco [facility] CPT-89207 Level 3 Est. Patient 09:58:27 CDT Julián Sue MD [facility] CPT-41415 Level 3 Est. Patient 10:17:17 [employer] Carter Blanco [facility] CPT-02503 Level 3 Est. Patient 10:42:29 [employer] Elle Giang APRN [facility] CPT-26811 Level 3 Est. Patient 10:00:26 CDT Susan Mckinnon MD [facility] CPT-55218 Level 3 Est. Patient 15:14:48 CDT Susan Mckinnon MD [facility] Procedures Code Procedure Name Date Entry Date Standard Description CPT-A4570 Splint 15:14:48 CDT CPT-80754 Ankle Complete - Min 3V 14:40:31 CDT
--- OUTSIDE RECORDS SUMMARY | 2018-04-04 06:35 | XMS REPORT | Clinical Summary ---
Author Author Admin, OBDULIO Corley [facility] Address Unknown Phone Unavailable Allergies, Adverse [...] 1 tablet days 2 and 3 PREDNISONE [phone] Active Carter W Francis DO Active FLONASE 50 MCG/ACT SUSP 1 spray each nostril am and hs FLUTICASONE PROPIONATE 73631565178 Active Carter Blanco DO Active ZITHROMAX 250 MG TAB 2 po today, then 1 po q days 2-5 AZITHROMYCIN 43985388711 No Longer Active Julián Sue MD Active FLONASE 50 MCG/ACT SUSP 1 puff in each nostril twice daily 12/30 FLUTICASONE PROPIONATE 44282297565 No Longer Active Elle Giang APRN Active AMOXICILLIN 875 MG TABS 1 bid AMOXICILLIN 08372628522 No Longer Active Elle Giang APRN Active AMOXICILLIN 875 MG TABS 1 bid AMOXICILLIN 875 MG TABS 364934 AMOXICILLIN Inactive FLONASE 50 MCG/ACT SUSP 1 puff in each nostril twice daily 12/30 FLONASE 50 MCG/ACT SUSP 728601 FLUTICASONE PROPIONATE Inactive ZITHROMAX 250 MG TAB 2 po today, then 1 po q days 2-5 ZITHROMAX 250 MG TAB 9192614 AZITHROMYCIN Inactive Immunizations Vaccine Administration Date Value Standard Description Adacel (Tetanus, reduced Diphtheria, and acellular Pertussis Immunization) Adacel [[id number]] tetanus toxoid, reduced diphtheria toxoid, and acellular [...] Negative Encounters Code Encounter Date Provider Facility CPT-65493 Level 3 Est. Patient 16:57:05 [employer] Carter Blanco [facility] CPT-59031 Level 3 Est. Patient 09:58:27 CDT Julián Sue MD [facility] CPT-34192 Level 3 Est. Patient 10:17:17 [employer] Carter Blanco [facility] CPT-42006 Level 3 Est. Patient 10:42:29 [employer]OR [employer] Elle Giang APRN [facility] CPT-50480 Level 3 Est. Patient 10:00:26 CDT Susan Mckinnon MD [facility]-07782 Level 3 Est. Patient 15:14:48 CDT Susan Mckinnon MD [facility] Procedures Code Procedure Name Date Entry Date Standard Description CPT-A4570 Splint 15:14:48 CDT CPT-19310 Ankle Complete - Min 3V 14:40:31 CDT
[2018-04-04] MEDS ORDERED: LACTATED RINGERS 1,000 ML IV PRN (06:48)
--- NOTE | 2018-04-04 06:58 | Progress Note-Pre Operative ---
Pre-Operative Progress Note H&P Reviewed The H&P was reviewed, patient examined and no changes noted. Date Seen by Provider: Apr 04, 2018 Time Seen by Provider: 06:45 Date H&P Reviewed: Apr 04, 2018 Time H&P Reviewed: 06:45 Pre-Operative Diagnosis: Chronic Left Sinusitis, Bialt Hyper of Inf Turbs, DEv nasal septum JOSÉ GUERRA MD Apr 04, 2018 06:58
[2018-04-04] MEDS ORDERED: HYDROCORTISONE 100 MG/2 ML (Solu-CORTEF) VIAL IV ONE (07:00)
[2018-04-04] MEDS ORDERED: AMPICILLIN/SULBACTAM INJECTION 1.5 GM in NS (IVPB) 100 ML IV ONE (07:00)
[2018-04-04 07:18] LABS: BASOPHILS # (AUTO) 0.1 10^3/uL (0.0-0.1); BASOPHILS % (AUTO) 1 % (0-10); EOSINOPHILS # (AUTO) 0.1 10^3/uL (0.0-0.3); EOSINOPHILS % (AUTO) 1 % (0-10); HEMATOCRIT 47 % (40-54); HEMOGLOBIN 16.1 G/DL (13.3-17.7); LYMPHOCYTES # (AUTO) 2.5 X 10^3 (1.0-4.0); LYMPHOCYTES % (AUTO) 29 % (12-44); MEAN CORPUSCULAR HEMOGLOBIN 30 PG (25-34); MEAN CORPUSCULAR HGB CONC 34 G/DL (32-36); MEAN CORPUSCULAR VOLUME 88 FL (80-99); MEAN PLATELET VOLUME 10.5 FL (7.4-10.4); MONOCYTES # (AUTO) 0.7 X 10^3 (0.0-1.0); MONOCYTES % (AUTO) 8 % (0-12); NEUTROPHILS # (AUTO) 5.4 X 10^3 (1.8-7.8); NEUTROPHILS % (AUTO) 61 % (42-75); PLATELET COUNT 237 10^3/uL (130-400); RED CELL DISTRIBUTION WIDTH 12.8 % (10.0-14.5); WHITE BLOOD COUNT 8.8 10^3/uL (4.3-11.0)
[2018-04-04 07:22] VITALS: BP 157/92
[2018-04-04 07:34] LABS: BUN/CREATININE RATIO 20; CALCIUM 9.1 MG/DL (8.5-10.1); CARBON DIOXIDE 20 MMOL/L (21-32); CHLORIDE 110 MMOL/L (98-107); CREATININE SERUM 0.83 MG/DL (0.60-1.30); GFR ESTIMATED > 60; GLUCOSE 101 MG/DL (70-105); POTASSIUM 4.3 MMOL/L (3.6-5.0); SODIUM 141 MMOL/L (135-145)
[2018-04-04] MEDS ORDERED: SEVOFLURANE (ULTANE) 15 ML INHAL SOLN ONE (07:47)
[2018-04-04] MEDS ORDERED: proPOfol 200 MG/20 ML (DIPRIVAN) VIAL IV ONE (07:47)
[2018-04-04] MEDS ORDERED: DEXAMETHASONE 10 MG/ML (DECADRON) 1 ML VIAL ONE (07:47)
[2018-04-04] MEDS ORDERED: LIDOCAINE PF 2% 5 ML (XYLOCAINE) VIAL ONE (07:47)
[2018-04-04] MEDS ORDERED: ONDANSETRON 4 MG/2 ML (SDV) Z0FRAN ONE (07:47)
[2018-04-04] MEDS ORDERED: ROCURONIUM 10 MG/ML 5 ML SYRINGE IV ONE (07:47)
[2018-04-04] MEDS ORDERED: MIDAZOLAM 2 MG/2 ML (VERSED) VIAL ONE (07:47)
[2018-04-04] MEDS ORDERED: fentaNYL INJECTION 100 MCG/2 ML AMP ONE (07:47)
[2018-04-04] MEDS ORDERED: PHENYLEPHRINE 0.5% NASAL SPR (NEO-SYNEPHRINE) REG ONE (07:50)
[2018-04-04] MEDS ORDERED: COCAINE HCL 4% 2 ML SYR ONE (07:50)
[2018-04-04] MEDS ORDERED: BSS 15 ML ONE (07:50)
[2018-04-04] MEDS ORDERED: fentaNYL INJECTION 250 MCG/5 ML AMP ONE (07:50)
[2018-04-04] MEDS ORDERED: LIDOCAINE/EPI 1%-1:100,000 (XYLOCAINE) 20ML ONE (07:50)
[2018-04-04] MEDS ORDERED: NEOSTIGMINE 1 MG/ML 5 ML SYRINGE ONE (08:33)
[2018-04-04] MEDS ORDERED: GLYCOPYRROLATE 0.2 MG/ML (ROBINUL) 2 ML VIAL ONE (08:33)
--- NOTE | 2018-04-04 09:17 | Progress Note-Post Operative ---
Post-Operative Progess Note Surgeon (s)/Automobile Inspector (s) Surgeon JOSÉ GUERRA MD Automobile Inspector n/a Pre-Operative Diagnosis Chronic Left Sinusitis, Bialt Hyper of Inf Turbs, DEv nasal septum Post-Operative Diagnosis same Post-Op Procedure Note Date of Procedure: Apr 04, 2018 Name of Procedure Performed: Left Ess with REmoval of Polyps, Bilat Red of Inf Turbs Description & Findings Description and Findings: n/a Anesthesia Type get Estimated Blood Loss minimal Packing none. Specimen(s) collected/removed left nasal polyps JOSÉ GUERRA MD Apr 04, 2018 09:17
[2018-04-04] MEDS ORDERED: PROMETHAZINE INJ 25 MG/ML (PHENERGAN) AMP IVP ONE (09:30)
[2018-04-04] MEDS ORDERED: morphine INJ 10 MG/ML 1ML (SYR OR VIAL) IVP ONE (09:30)
[2018-04-04] MEDS ORDERED: ONDANSETRON 4 MG/2 ML (SDV) Z0FRAN IVP PRN (09:30)
[2018-04-04] MEDS ORDERED: HYDROmorphone 2 MG/ML VIAL (DILAUDID) IV ONE (09:30)
[2018-04-04] MEDS ORDERED: MEPERIDINE (DEMEROL) INJ 50 MG/ML IVP ONE (09:30)
[2018-04-04 10:20] VITALS: BP 153/93
[2018-04-04] MEDS ORDERED: PRD20T PO (10:43)
[2018-04-04] MEDS ORDERED: AMOX-355 PO (10:43)
[2018-04-04] MEDS ORDERED: HYDR-3812 PO (10:43)
[2018-04-04] MEDS ORDERED: HYDROcodone/APAP 5 MG/325 MG (LORTAB) TAB ONE (10:47)
[2018-04-04 10:50] VITALS: BP 156/100
[2018-04-04] MEDS ORDERED: HYDROcodone/APAP 5 MG/325 MG (LORTAB) TAB PO ONE (11:00)
[2018-04-04] MEDS ORDERED: D5 1/2 NS W/KCL 20 MEQ/L 1,000 ML IV SCH (11:01)
[2018-04-04] MEDS ORDERED: predniSONE 20 MG TAB PO ONE (11:15)
[2018-04-04] MEDS ORDERED: PROMETHAZINE INJ 25 MG/ML (PHENERGAN) AMP IVP PRN (11:15)
[2018-04-04] MEDS ORDERED: ACETAMINOPHEN 325 MG TABLET PO PRN (11:15)
[2018-04-04] MEDS ORDERED: HYDROcodone/APAP 5 MG/325 MG (LORTAB) TAB PO PRN (11:15)
[2018-04-04 11:30] VITALS: BP 153/93
[2018-04-04 11:41] VITALS: BP 150/85
--- NOTE | 2018-04-04 12:50 | Anesthesia-General Post-Op ---
General Patient Condition Mental Status/LOC: Same as Preop Cardiovascular: Satisfactory Nausea/Vomiting: Absent Respiratory: Satisfactory Pain: Controlled Complications: Absent Post Op Complications Complications None Follow Up Care/Instructions Patient Instructions None needed. Anesthesia/Patient Condition Patient Condition Patient is doing well, no complaints, stable vital signs, no apparent adverse anesthesia problems. No complications reported per nursing. D/C home per [facility] Criteria: Yes E[place]ES CRNA Apr 04, 2018 12:49
== END 2018-04-04 11:38 | disposition home or self-care (01) ==
LOC: SDC 06:21
PROVIDERS: ATTEND Otolaryngology Otolaryngology/Facial Plastic Surgery
DX: J32.2 Chronic ethmoidal sinusitis (principal); J32.0 Chronic maxillary sinusitis; J33.8 Other polyp of sinus; J34.3 Hypertrophy of nasal turbinates
CPT/HCPCS: 36415; 80048; 85025; 87081

== ENCOUNTER 2021-02-02 05:40 | Outpatient (RCR) | payer BC ==
[~2021-02-02] VITALS: Ht 195.6 cm; Wt 129.5 kg
[~2021-02-02 05:40] MED LIST: ACHD5005 PO; AMOX-355 PO; PRD20T PO
== END 2021-02-03 14:30 | disposition home or self-care (01) ==
LOC: PREOP 05:40 → EDSTATUS 10:00 → PREOP 02-03 14:30
PROVIDERS: ATTEND Otolaryngology Otolaryngology/Facial Plastic Surgery
DX: Z01.818 Encounter for other preprocedural examination (principal)

== ENCOUNTER 2021-02-09 07:45 | Day surgery (SDC) | payer BC ==
[~2021-02-09] VITALS: Ht 195.6 cm; Wt 129.5 kg
[2021-02-09] VITALS (11 sets, daily range): BP systolic 125–159; BP diastolic 71–98
[2021-02-09] MEDS ORDERED: LIDOCAINE/EPI 1%-1:200,000 (XYLOCAINE) 30 ML VIAL ONE (08:16)
[2021-02-09] MEDS ORDERED: COCAINE HCL 4% 2 ML SYR ONE (08:16)
[2021-02-09] MEDS ORDERED: PHENYLEPHRINE 0.5% NASAL SPR (NEO-SYNEPHRINE) REG ONE (08:17)
[2021-02-09] MEDS ORDERED: LACTATED RINGERS 1,000 ML IV PRN (08:45)
--- NOTE | 2021-02-09 08:49 | Progress Note-Pre Operative ---
Pre-Operative Progress Note H&P Reviewed The H&P was reviewed, patient examined and no changes noted. Date Seen by Provider: Feb 09, 2021 Time Seen by Provider: 08:45 Date H&P Reviewed: Feb 09, 2021 Time H&P Reviewed: 08:45 Pre-Operative Diagnosis: Deviated SEptum, Bialt hyper of INf turbs with nasal obstruction JOSÉ GUERRA MD Feb 09, 2021 08:49
[2021-02-09] MEDS ORDERED: SEVOFLURANE (ULTANE) 15 ML INHAL SOLN ONE (08:54)
[2021-02-09] MEDS ORDERED: ROCURONIUM 10 MG/ML 5 ML SYRINGE IV ONE (08:54)
[2021-02-09] MEDS ORDERED: ONDANSETRON 4 MG/2 ML (SDV) Z0FRAN ONE (08:54)
[2021-02-09] MEDS ORDERED: MIDAZOLAM 2 MG/2 ML (VERSED) VIAL ONE (08:54)
[2021-02-09] MEDS ORDERED: fentaNYL INJ 100 MCG/2 ML AMP ONE ×2 (08:54→09:29)
[2021-02-09] MEDS ORDERED: proPOfol 200 MG/20 ML (DIPRIVAN) VIAL IV ONE (08:54)
[2021-02-09] MEDS ORDERED: LIDOCAINE PF 2% 5 ML (XYLOCAINE) VIAL ONE (08:54)
--- NOTE | 2021-02-09 09:23 | Progress Note-Post Operative ---
Post-Operative Progess Note Surgeon (s)/Rougher Machine Operator (s) Surgeon JOSÉ GUERRA MD Rougher Machine Operator n/a Pre-Operative Diagnosis Deviated SEptum, Bialt hyper of INf turbs with nasal obstruction Post-Operative Diagnosis same Post-Op Procedure Note Date of Procedure: Feb 09, 2021 Name of Procedure Performed: Nasal Septoplasty, Bilat Red of Inf Turbs Description & Findings Description and Findings: n/a Anesthesia Type get Estimated Blood Loss minimal Packing none. Specimen(s) collected/removed nasal septum JOSÉ GUERRA MD Feb 09, 2021 09:23
[2021-02-09] MEDS ORDERED: PROMETHAZINE INJ 25 MG/ML (PHENERGAN) AMP IVP PRN (09:30)
[2021-02-09] MEDS ORDERED: D5 1/2 NS W/KCL 20 MEQ/L 1,000 ML IV SCH (09:30)
[2021-02-09] MEDS ORDERED: HYDROcodone/APAP 5 MG/325 MG (LORTAB) TAB PO PRN (09:30)
--- NOTE | 2021-02-09 10:36 | Anesthesia-General Post-Op ---
General Patient Condition Mental Status/LOC: Same as Preop Cardiovascular: Satisfactory Nausea/Vomiting: Absent Respiratory: Satisfactory Pain: Controlled Complications: Absent Post Op Complications Complications None Follow Up Care/Instructions Patient Instructions None needed. Anesthesia/Patient Condition Patient Condition Patient is doing well, no complaints, stable vital signs, no apparent adverse anesthesia problems. No complications reported per nursing. CAMRON DUMONT CRNA Feb 09, 2021 10:36
[2021-02-09] MEDS ORDERED: MEPERIDINE (DEMEROL) INJ 50 MG/ML IVP ONE (10:45)
[2021-02-09] MEDS ORDERED: morphine INJ 10 MG/ML 1ML (SYR OR VIAL) IVP ONE (10:45)
[2021-02-09] MEDS ORDERED: ONDANSETRON 4 MG/2 ML (SDV) Z0FRAN IVP PRN (10:45)
[2021-02-09] MEDS ORDERED: HYDROmorphone 2 MG/ML VIAL (DILAUDID) IV ONE (10:45)
[2021-02-09] MEDS ORDERED: ACHD5005 PO (11:52)
[2021-02-09] MEDS ORDERED: AMOX-355 PO (11:52)
== END 2021-02-09 12:32 ==
LOC: SDC 07:45
PROVIDERS: ATTEND Otolaryngology Otolaryngology/Facial Plastic Surgery
DX: J34.2 Deviated nasal septum (principal); J34.89 Other specified disorders of nose and nasal sinuses; J34.3 Hypertrophy of nasal turbinates; R09.81 Nasal congestion; J30.9 Allergic rhinitis, unspecified; E66.9 Obesity, unspecified; Z98.890 Other specified postprocedural states; Z68.33 Body mass index [BMI] 33.0-33.9, adult
CPT/HCPCS: 87081; 88300